=== PATIENT | female | born 1940 | race Caucasian/White ===

== ENCOUNTER 2016-10-25 17:56 | Emergency (ER) | payer MEDICARE, OTHER ==
[~2016-10-25] VITALS: Ht 167.6 cm; Wt 81.6 kg
[~2016-10-25 17:56] MED LIST: ADV1DS; CALC500T7 PO; CALC625T66 PO; CALCIUM; CARV3.122 PO; CARV6.252 PO; CLCX200C; DICL100G20 TOP; ENAL2.5T PO; ENAL5TAB PO; EZET1TAB43 PO; FLUC150T PO; GABA-486 PO; MULT1TAB63 PO; NF-ESOM40C PO; OMG1KC PO; ONDAN4ODT PO; TRAM50TA2 PO; TRM50T; VYTORIN
--- OUTSIDE RECORDS SUMMARY | 2016-10-25 18:03 | XMS REPORT | Continuity of Care Document ---
Author Author [facility] Organization [facility] Address Unknown Phone Unavailable Care Team Providers Care Agriculture Worker Name Role Phone FOREIGN MARS MD PCP Insurance Providers Payer Name Policy Number Subscriber Name Relationship [employer] [id number] Eva Boyd 18 Self / Same As Patient Physicians Sandy [id number] Eva Boyd 18 Self / Same As Patient Advance Directives Directive Response Recorded Date/Time Advance Directives Yes 09/25/14 5:05pm Health Care Power of Insurance Verification Clerk No 09/25/14 5:05pm Organ Donor Yes 09/25/14 5:05pm Resuscitation Status Full Code 09/25/14 5:05pm Chief Complaint and Reason for Visit Chief Complaint FEVER WITH GENAO, MALAISE Reason for Visit Nuchal rigidity Fever and chills Problems Medical Problems Problem Onset Date Status Nuchal rigidity Unknown Active Fever and chills Unknown Active Medications Medication Dose Route Sig Days/Qty Instructions Order Date Discontinued Date Status Multivitamins 2 Tab PO DAILY 08/17/07 Active [Calcium] 08/17/07 09/25/14 Discontinued Esomeprazole Magnesium 40 Mg PO DAILY PRN INDIGESTION 08/17/07 Active [Vytorin 10] DAILY 08/17/07 09/25/14 Discontinued Celecoxib 08/17/07 11/24/11 Discontinued Tramadol HCl 2 Tab EVERY 6 HOURS 08/17/07 09/25/14 Discontinued Salmeterol Xinafoate/Fluticasone 08/17/07 09/25/14 Discontinued Fish Oil 1,000 Mg PO DAILY 11/24/11 09/25/14 Discontinued Calcium Polycarbophil 625 Mg PO 11/24/11 09/25/14 Discontinued Carvedilol (Coreg) 1 Each PO TWICE A DAY 11/24/11 09/25/14 Discontinued Enalapril Maleate 2.5 Mg PO DAILY 11/24/11 09/25/14 Discontinued Diclofenac Sod 100 Gm TOP NEEDED 11/24/11 09/25/14 Discontinued Ondansetron HCl 4 Mg PO EVERY 4HRS 5 Qty FOR NAUSEA AND VOMITING 09/25/14 Discontinued Carvedilol (Coreg) 6.25 Mg PO TWICE A DAY 09/25/14 Active Enalapril Maleate 5 Mg PO TWICE A DAY 09/25/14 Active Ezetimibe/Simvastatin 1 Tab PO DAILY 09/25/14 Active Tramadol Hcl 50 Mg PO FOUR TIMES DAILY PRN PAIN 09/25/14 Active Gabapentin 100 Mg PO EVERY 8HRS PRN PAIN 09/25/14 Active Calcium Carbonate 400 Mg PO DAILY PRN INDIGESTION 09/25/14 Active Social History Social History Problem Response Recorded Date/Time Alcohol Use Denies Use 09/25/2014 5:21pm Recreational Drug Use No 09/25/2014 5:21pm Recent Foreign Travel No 09/25/2014 5:21pm Recent Infectious Disease Exposure No 09/25/2014 5:21pm Hospitalization with Isolation Denies 09/28/2014 2:20pm Smoking Status Never a Smoker 09/25/2014 5:00pm Query Response Start Date Stop Date Smoking Status Never a Smoker Hospital Discharge Instructions No hospital discharge instructions. Plan of Care Discharge Date 09/28/14 2:20pm Disposition 61 MEDICARE SWING BED Instructions/Education Provided Fungal Meningitis (DC) Prescriptions See Medications Section Functional Status Query Response Date Recorded Patient Orientation Person Place Time Situation September 28, 2014 2:20pm Comprehension Ability Understands Concepts September 26, 2014 8:00pm Allergies, Adverse Reactions, Alerts Allergen Type Severity Reaction Status Last Updated NSAIDS (Non-Steroidal Anti-Inflammatory Drug) ([id number]) Allergy Unknown Active 03/21/09 Immunizations Name Given Type Date of Pneumonia Vaccine 09/25/06 Historical Date of Influenza Vaccine 06/27/14 Historical Vital Signs Acute Vital Signs Vital Response Date/Time Temperature (Fahrenheit) 97.5 degrees F (97.6 - 99.5) Temperature (Calculated Celsius) 36.13463 degrees C (36.4 - 37.5) Temperature Source Tympanic Pulse Rate (adult) 70 bpm (60 - 90) Respiratory Rate 18 bpm (12 - 24) O2 Sat by Pulse Oximetry 97 % (88 - 100) Blood Pressure 167/91 mm Hg Pain Pain Intensity 0 Height (Feet) 5 feet Height (Inches) 6.00 inches Height (Calculated Centimeters) 167.464326 cm Weight (Pounds) 163 pounds Weight (Ounces) 6.0 oz Weight (Calculated Grams) 49492.654 gm Weight (Calculated Kilograms) 74.137071 kilograms Calculated BMI 26.31 Results Laboratory Results Test Name Result Units Flags Reference Collection Date/Time Result Date/ Time Comments White Blood Count 8.6 10^3/uL 4.3-11.0 09/27/2014 5:55am 09/27/2014 6: 23am Red Blood Count 3.20 10^6/uL L 4.35-5.85 09/27/2014 5:55am 09/27/2014 6: 23am Hemoglobin 9.6 G/DL L 11.5-16.0 09/27/2014 5:55am 09/27/2014 6:23am Hematocrit 29 % L 35-52 09/27/2014 5:55am 09/27/2014 6:23am Mean Corpuscular Volume 92 FL 80-99 09/27/2014 5:55am 09/27/2014 6: 23am Mean Corpuscular Hemoglobin 30 PG 25-34 09/27/2014 5:55am 09/27/2014 6: 23am Mean Corpuscular Hemoglobin Concent 33 G/DL 32-36 09/27/2014 5:55am 09/2014 6:23am Red Cell Distribution Width 14.7 % H 10.0-14.5 09/27/2014 5:55am 2014 6:23am Platelet Count 148 10^3/uL 130-400 09/27/2014 5:55am 09/27/2014 6:23am Mean Platelet Volume 9.8 FL 7.4-10.4 09/27/2014 5:55am 09/27/2014 6: 23am Neutrophils (%) (Auto) 76 % H 42-75 09/27/2014 5:55am 09/27/2014 6:23am Lymphocytes (%) (Auto) 10 % L 12-44 09/27/2014 5:55am 09/27/2014 6:23am Monocytes (%) (Auto) 5 % 0-12 09/27/2014 5:55am 09/27/2014 6:23am Eosinophils (%) (Auto) 9 % 0-10 09/27/2014 5:55am 09/27/2014 6:23am Basophils (%) (Auto) 0 % 0-10 09/27/2014 5:55am 09/27/2014 6:23am Neutrophils # (Auto) 6.5 X 10^3 1.8-7.8 09/27/2014 5:55am 09/27/2014 6: 23am Lymphocytes # (Auto) 0.9 X 10^3 L 1.0-4.0 09/27/2014 5:55am 09/27/2014 6: 23am Monocytes # (Auto) 0.4 X 10^3 0.0-1.0 09/27/2014 5:55am 09/27/2014 6: 23am Eosinophils # (Auto) 0.8 10^3/uL H 0.0-0.3 09/27/2014 5:55am 09/27/2014 6 :23am Basophils # (Auto) 0.0 10^3/uL 0.0-0.1 09/27/2014 5:55am 09/27/2014 6: 23am Neutrophils % (Manual) 81 % 09/25/2014 12:25pm 09/25/2014 12:55pm Band Neutrophils 7 % 09/25/2014 12:25pm 09/25/2014 12:55pm Lymphocytes % (Manual) 9 % 09/25/2014 12:25pm 09/25/2014 12:55pm Monocytes % (Manual) 0 % 09/25/2014 12:25pm 09/25/2014 12:55pm Eosinophils % (Manual) 3 % 09/25/2014 12:25pm 09/25/2014 12:55pm Basophils % (Manual) 0 % 09/25/2014 12:25pm 09/25/2014 12:55pm Blood Morphology Comment NORMAL 09/25/2014 12:25pm 09/25/2014 12: 55pm Urine Color YELLOW 09/25/2014 12:50pm 09/25/2014 1:12pm Urine Clarity CLEAR 09/25/2014 12:50pm 09/25/2014 1:12pm Urine pH 7 5-9 09/25/2014 12:50pm 09/25/2014 1:12pm Urine Specific Noble 1.010 * 1.016-1.022 09/25/2014 12:50pm 2013 1:12pm Urine Protein NEGATIVE NEGATIVE 09/25/2014 12:50pm 09/25/2014 1:12pm Urine Glucose (UA) NEGATIVE NEGATIVE 09/25/2014 12:50pm 09/25/2014 1: 12pm Urine RBC (Auto) 3+ * NEGATIVE 09/25/2014 12:50pm 09/25/2014 1:12pm Urine Ketones NEGATIVE NEGATIVE 09/25/2014 12:50pm 09/25/2014 1:12pm Urine Nitrite NEGATIVE NEGATIVE 09/25/2014 12:50pm 09/25/2014 1:12pm Urine Bilirubin NEGATIVE NEGATIVE 09/25/2014 12:50pm 09/25/2014 1: 12pm Urine Urobilinogen NORMAL MG/DL NORMAL 09/25/2014 12:50pm 09/25/2014 1: 12pm Urine Leukocyte Esterase 1+ * NEGATIVE 09/25/2014 12:50pm 09/25/2014 1: 12pm Urine RBC 0-2 /HPF 09/25/2014 12:50pm 09/25/2014 1:12pm Urine WBC RARE /HPF 09/25/2014 12:50pm 09/25/2014 1:12pm Urine Bacteria TRACE /HPF 09/25/2014 12:50pm 09/25/2014 1:12pm Urine Squamous Epithelial Cells RARE /HPF 09/25/2014 12:50pm 2013 1:12pm Urine Crystals NONE /LPF 09/25/2014 12:50pm 09/25/2014 1:12pm Urine Casts NONE /LPF 09/25/2014 12:50pm 09/25/2014 1:12pm Urine Mucus NEGATIVE /LPF 09/25/2014 12:50pm 09/25/2014 1:12pm Urine Culture Indicated NO 09/25/2014 12:50pm 09/25/2014 1:12pm Sodium Level 138 MMOL/L 135-145 09/27/2014 5:55am 09/27/2014 6:57am Potassium Level 3.5 MMOL/L L 3.6-5.0 09/27/2014 5:55am 09/27/2014 6:57am Chloride Level 108 MMOL/L H 98-107 09/27/2014 5:55am 09/27/2014 6:57am Carbon Dioxide Level 23 MMOL/L 21-32 09/27/2014 5:55am 09/27/2014 6: 57am Blood Urea Nitrogen 16 MG/DL 7-18 09/27/2014 5:55am 09/27/2014 6:57am Creatinine 0.80 MG/DL 0.60-1.30 09/27/2014 5:55am 09/27/2014 6:57am BUN/Creatinine Ratio 20 09/27/2014 5:55am 09/27/2014 6:57am Estimat Glomerular Filtration Rate > 60 09/27/2014 5:55am 2014 6:57am GFR INTERPRETIVE DATA UNITS FOR ESTIMATED GFR (eGFR): mL/min/1.73 M2 REFERENCE RANGE FOR ESTIMATED GFR (eGFR) eGFR NORMAL eGFR >60 MODERATELY DECREASED eGFR 30-59 SEVERLY DECREASED eGFR 15-29 KIDNEY FAILURE <15 (OR DIALYSIS) Glucose Level 100 MG/DL 70-105 09/27/2014 5:55am 09/27/2014 6:57am Calcium Level 7.5 MG/DL L 8.5-10.1 09/27/2014 5:55am 09/27/2014 6:57am Total Bilirubin 0.2 MG/DL 0.1-1.0 09/27/2014 5:55am 09/27/2014 6:57am Alkaline Phosphatase 64 U/L 40-136 09/27/2014 5:55am 09/27/2014 6:57am Aspartate Amino Transf (AST/SGOT) 20 U/L 5-34 09/27/2014 5:55am 2014 6:57am Alanine Aminotransferase (ALT/SGPT) 12 U/L 0-55 09/27/2014 5:55am 09/27 6:57am Total Protein 5.2 G/DL L 6.4-8.2 09/27/2014 5:55am 09/27/2014 6:57am Albumin 2.6 G/DL L 3.2-4.5 09/27/2014 5:55am 09/27/2014 6:57am CSF Appearance CLEAR 09/25/2014 2:47pm 09/25/2014 3:24pm CSF Color COLORLESS 09/25/2014 2:47pm 09/25/2014 3:24pm CSF WBC 1 CELLS 0-5 09/25/2014 2:47pm 09/25/2014 3:24pm CSF RBC 77 CELLS H 0-0 09/25/2014 2:47pm 09/25/2014 3:24pm CSF Tube Number 4 09/25/2014 2:47pm 09/25/2014 3:24pm CSF Glucose 57 MG/DL 50-80 09/25/2014 2:47pm 09/25/2014 3:34pm CSF Total Protein 30 MG/DL 15-40 09/25/2014 2:47pm 09/25/2014 3:34pm Microbiology Results Procedure Source Result Collection Date/Time Result Date/Time Blood Culture Peripheral, Rt Ac POSITIVE; SEE REPORT 09/25/2014 4:00pm 10/2014 7:20am BACILLUS SPECIES 09/25/2014 4:00pm 09/28/2014 7:20am Procedures No known history of procedures. Encounters Encounter Location Date/Time Discharged Inpatient Via [facility] 09/25/14 2:00pm Recent Diagnosis Nuchal rigidity Fever and chills
[2016-10-25] MEDS ORDERED: METO-270 (18:13)
--- NOTE | 2016-10-25 18:22 | ED Cough/URI ---
General Chief Complaint: Cough/Cold/Flu Symptoms Stated Complaint: COUGHING, SORE THROAT Source: patient, family Exam Limitations: no limitations History of Present Illness Time seen by provider: 18:21 Initial Comments Brought to ER by her granddaughter with reports of a productive cough for 5 days as well as chills, rhinorrhea and sore throat. She did not receive a flu vaccine this year. She does have a history of asthma and infrequently uses a inhaler. She wears oxygen at night while sleeping. Timing/Duration: constant, week Severity/Quality: moderate Associated Symptoms: cough Allergies and Home Medications Allergies Coded Allergies: NSAIDS (Non-Steroidal Anti-Inflamma (Verified Allergy, Unknown, 03/21/09) Home Medications Calcium Carbonate 200 Mg Tab.chew 400 MG PO DAILY PRN PRN INDIGESTION (Reported ) Cefuroxime Axetil 250 Mg Tablet #14 250 MG PO BID Prescribed by: JORGE BLOOM on 10/25/161906 Esomeprazole Mag Trihydrate 40 Mg Capsule.dr 40 MG PO DAILY PRN PRN INDIGESTION (Reported) Ezetimibe/Simvastatin 1 Each Tablet 1 TAB PO DAILY (Reported) Guaifenesin/Pseudoephedrne HCl 1 Each Tab.er.12h #20 1 EACH PO BID PRN PRN COUGH Prescribed by: JORGE BLOOM on 10/25/161906 Metoprolol Succinate 25 Mg Tab.er.24h #90 (Reported) Multivitamins 1 Ea Tablet 2 TAB PO DAILY (Reported) Tramadol Hcl 50 Mg Tab 50 MG PO QID PRN PRN PAIN (Reported) Constitutional: see HPI EENTM: see HPI Respiratory: see HPI cough phlegm Cardiovascular: no symptoms reported Genitourinary: no symptoms reported Musculoskeletal: no symptoms reported Skin: no symptoms reported Psychiatric/Neurological: No Symptoms Reported Hematologic/Lymphatic: No Symptoms Reported Past Psywmhk-Mjqtnr-Qspyal Hx Patient Social History Alcohol Use: Denies Use Recreational Drug Use: No Smoking Status: Never a Smoker Recent Foreign Travel: No Contact w/Someone Who Travel: No Recent Hopitalizations: Yes Physical Abuse Screen: No Sexual Abuse: No Immunizations Up To Date Tetanus Booster (TDap): Unknown PED Vaccines UTD: Yes Date of Pneumonia Vaccine: Sep 25, 2006 Date of Influenza Vaccine: Jun 27, 2014 Seasonal Allergies Seasonal Allergies: Yes Surgeries HX Surgeries: Yes (knees replaced bilateral) Surgeries: Hysterectomy, Orthopedic, Tonsillectomy Respiratory Hx Respiratory Disorders: Yes (hx. of asthma yrs ago.; wears 02@1-2 at nite) Respiratory Disorders: Asthma Cardiovascular Hx Cardiac Disorders: Yes (heart cath.; no problems; Dr. Huntley) Cardiac Disorders: Aneurysm, Hypertension Neurological Hx Neurological Disorders: No Reproductive System Hx Reproductive Disorders: No Genitourinary Hx Genitourinary Disorders: Yes (FREQUENCY) Gastrointestinal Hx Gastrointestinal Disorders: Yes (CHRONIC NAUSEA) Gastrointestinal Disorders: Diverticulosis Musculoskeletal Hx Musculoskeletal Disorders: Yes (LEFT SHOULDER PAIN, CHRONIC GENERALIZED PAIN /CHRONIC NECK PAIN) Musculoskeletal Disorders: Arthritis Endocrine Hx Endocrine Disorders: No HEENT HX ENT Disorders: No Loss of Vision: Denies Hearing Impairment: Denies Cancer Hx Cancer: No Psychosocial Hx Psychiatric Problems: No Integumentary HX Skin/Integumentary Disorder: No Blood Transfusions Hx Blood Disorders: No Adverse Reaction to a Blood Tr: No Family Medical History Family Medial History: Patient reports no known family medical history. Physical Exam Vital Signs Vital Sign - Last 12Hours 10/25/16 17:58 Temp 98.3 Pulse 80 Resp 18 B/P 121/62 Pulse Ox 94 O2 Delivery Room Air Capillary Refill : General Appearance: WD/WN no apparent distress Eyes: Bilateral Eye EOMI, Bilateral Eye Normal Inspection, Bilateral Eye PERRL HEENT: PERRL/EOMI normal ENT inspection Neck: non-tender full range of motion Respiratory: lungs clear normal breath sounds no respiratory distress no accessory muscle use Cardiovascular: regular rate, rhythm no murmur Gastrointestinal: normal bowel sounds non tender soft Extremities: normal range of motion non-tender Neurologic/Psychiatric: alert normal mood/affect oriented x 3 Skin: normal color warm/dry Progress/Results/Core Measures Results/Orders Micro Results Microbiology 10/25/16 Influenza Types A,B Antigen (ADALBERTO) - Final, Complete My Orders Orders-JORGE BLOOM APRN Chest Pa/Lat (2 View) (10/25/16 18:19) Influenza A And B Antigens (10/25/16 18:19) Vital Signs/I&O Vital Sign - Last 12Hours 10/25/16 17:58 Temp 98.3 Pulse 80 Resp 18 B/P 121/62 Pulse Ox 94 O2 Delivery Room Air Departure Impression Impression: Primary Impression: Bronchitis Disposition: 01 HOME, SELF-CARE Condition: Stable Departure-Patient Inst. Decision time for Depature: 19:05 Referrals: FOREIGN MARS MD (PCP/Family) Primary Care Physician Patient Instructions: Acute Bronchitis, Adult (DC) Add. Discharge Instructions: 1. Cough medication and antibiotics as directed 2. Follow-up with your doctor this week if no improvement 3. Return to ER for any worsening All discharge instructions reviewed with patient and/or family. Voiced understanding. Scripts Guaifenesin (Guaifenesin ER)600 Mg Tab.er.32u937 Mg PO BID #20 TAB Prov:JORGE BLOOM HOSPICE CARE CONSULTANT 10/25/16 Cefuroxime Axetil (Cefuroxime)250 Mg [id number] Mg PO BID #14 TAB Prov:JORGE BLOOM HOSPICE CARE CONSULTANT 10/25/16 JORGE BLOOM HOSPICE CARE CONSULTANT Oct 25, 2016 18:22
--- NOTE | 2016-10-25 18:54 | Diagnostic Imaging Report ---
INDICATION: Cough. COMPARISON: September 25, 2014. TECHNIQUE: Two radiographs of the chest dated October 25, 2016. FINDINGS: The cardiac silhouette is within normal limits. No significant pulmonary vascular congestion. Calcified granuloma overlying the right upper lung is stable. The lungs are clear. No pleural effusion. No pneumothorax. No acute osseous abnormality. IMPRESSION: Stable examination without acute cardiopulmonary abnormality. Dictated by: Dictated on workstation # [id number]
[2016-10-25] MEDS ORDERED: GUAI-148 PO (19:07)
[2016-10-25] MEDS ORDERED: CEFU250T80 PO (19:07)
[2016-10-25] MEDS ORDERED: GUAI600T59 PO (19:09)
[2016-10-25 19:11] VITALS: BP 114/76
== END 2016-10-25 19:14 | disposition home or self-care (01) ==
LOC: EDUNIT# 17:56 → ER 17:58
DX: J40 Bronchitis, not specified as acute or chronic (principal); J02.9 Acute pharyngitis, unspecified; I10 Essential (primary) hypertension; J45.909 Unspecified asthma, uncomplicated; Z79.899 Other long term (current) drug therapy
CPT/HCPCS: 71020; 87804

== ENCOUNTER → 2016-12-29 | Outpatient (CLI) | payer MEDICARE, OTHER ==
[~2016-12-29] MED LIST changes: +ASPI-983 PO; +CEFU250T80 PO; +ESOM20TA PO; +GUAI-148 PO; +GUAI600T59 PO; +LISI10TA2 PO; +METO-270; +METO-272 PO
--- NOTE | 2016-12-30 14:58 | ECHOCARDIOGRAPHY REPORT ---
PROCEDURE PHYSICIAN: KEATON SIDDIQUI DATE OF PROCEDURE: 12/29/2016 TWO DIMENSIONAL ECHOCARDIOGRAM REPORT PRIMARY PHYSICIAN: OTHER PHYSICIAN: REFERRING PHYSICIAN: Dr. Kera Jackson ORDERING PHYSICIAN: INDICATION FOR THE PROCEDURE: 1. Congestive heart failure. 2. Abdominal aortic aneurysm. 3. Chest pain. MEASUREMENTS DERIVED VALUES LV DIAMETER (LAX) NORMALS NORMALS Diastolic 4.3 (3.6-5.2) Eject. Fract. 60% (60%+/-6%) Systolic (2.3-3.9) Diastolic Vol. % Shortening (0.22-0.42) Systolic Vol. Aortic Root IVS THICKNESS Diastolic 1 (0.6-1.1) LVPW THICKNESS Diastolic 1 (0.6-1.1) LA DIAMETER Systolic 3.6 (2.1-3.7) FINDINGS: 1. Technical quality is good. 2. The left ventricle is normal in size with normal contractility. Systolic function appeared to be normal. Estimated ejection fraction 60%. 3. The left atrium is normal in size. No clot or thrombus were seen within the left atrium. 4. The right atrium and right ventricle are normal in size. No clot or thrombus were seen within the right side. 5. Mitral valve is normal in morphology with mild mitral regurgitation noted by color Doppler flow. No mitral valve prolapse. No mitral valve stenosis. 6. Aortic valve is trileaflet with normal opening and closing pattern. No significant aortic stenosis or regurgitation was seen. 7. Tricuspid valve is normal in morphology with mild tricuspid regurgitation noted by color Doppler flow. Doppler across tricuspid valve estimated pulmonary artery pressure of 29+ right atrial pressure. 8. Pulmonic valve is functioning normally. 9. No pericardial effusion. CONCLUSION: 1. Normal left ventricular size and systolic function. Estimated ejection fraction 60%. 2. Mild mitral and tricuspid regurgitation. 3. Estimated pulmonary artery pressure of 35 mmHg. Job ID: [id number] Dictated Date: 12/30/2016 14:31:21 Tool Maker Bench Date: 12/30/2016 14:54:37 / liv
== END ==
LOC: CARD 14:18
PROVIDERS: ATTEND Internal Medicine Cardiovascular Disease
DX: I50.22 Chronic systolic (congestive) heart failure (principal); R07.89 Other chest pain; E78.2 Mixed hyperlipidemia; I11.0 Hypertensive heart disease with heart failure; I71.4 Abdominal aortic aneurysm, without rupture
CPT/HCPCS: 93306

== ENCOUNTER → 2017-01-20 | Outpatient (CLI) | payer MEDICARE, OTHER ==
[~2017-01-20] MED LIST changes: +CATHETER FLUSH 10 ML SYR IV PRN
[2017-01-20 09:35] VITALS: BP 148/95
--- NOTE | 2017-01-21 13:25 | STRESS TEST ---
DATE OF SERVICE: 01/20/2017 REFERRING PHYSICIAN: Kera Jackson MD PROCEDURE: Lexiscan Myoview stress test. Baseline heart rate 61, baseline blood pressure 148/95, baseline EKG sinus rhythm with no ischemic changes. IN SUMMARY: The patient received 10.5 mCi of technetium-99 Myoview and the resting images were obtained. Then the patient received 0.4 mg of Lexiscan followed by 30.3 mCi of technetium-99 Myoview. Throughout the test, there were no EKG changes. The resting and stress images were reviewed and compared in the short axis, horizontal long axis and vertical long axis views. Review of the images showed breast attenuation affecting the equality of the images. There is questionable ischemia involving the mid to apical anterior wall, anterolateral wall. SSS is 8, SDS 60, TID value 0.96. On the gated images, the left ventricle appeared to be normal size with normal contractility. Calculated ejection fraction 65%. IN CONCLUSION: 1. The patient tolerated Lexiscan well. 2. Breast attenuation affecting the quality of the images with mild ischemia involving the mid to apical anterior wall and anterolateral wall. 3. Normal left ventricular size with normal contractility. 4. Calculated ejection fraction 65%. Job ID: [id number] DocumentID: [id number] Dictated Date: 01/20/2017 14:15:45 Information Technology Coordinator Date: 01/21/2017 07:38:33 Dictated By: KEATON SIDDIQUI MD
== END ==
LOC: CARD 07:36
PROVIDERS: ATTEND Internal Medicine Cardiovascular Disease
DX: R07.89 Other chest pain (principal); I11.0 Hypertensive heart disease with heart failure; I50.22 Chronic systolic (congestive) heart failure; E78.2 Mixed hyperlipidemia; I71.4 Abdominal aortic aneurysm, without rupture
CPT/HCPCS: 78452; 93017

== ENCOUNTER 2017-01-27 08:44 | Day surgery (SDC) | payer MEDICARE, OTHER ==
[2017-01-27] VITALS (11 sets, daily range): BP systolic 113–157; BP diastolic 52–102
[~2017-01-27] VITALS: Ht 167.6 cm; Wt 81.8 kg
[~2017-01-27 08:44] MED LIST changes: -ASPI-983 PO; -CATHETER FLUSH 10 ML SYR IV PRN; -ESOM20TA PO; -LISI10TA2 PO; -METO-272 PO
[2017-01-27] MEDS ORDERED: LIDOCAINE 1% INJ 20 ML (XYLOCAINE) VIAL ONE (08:59)
[2017-01-27] MEDS ORDERED: NS IV 1000 ML 1,000 ML ONE (08:59)
[2017-01-27] MEDS ORDERED: HEParin (CATH LAB) 2,000 ML IV ONE (08:59)
[2017-01-27] MEDS ORDERED: NS IV 1000 ML 1,000 ML IV SCH ×2 (09:30→12:23)
[2017-01-27 10:07] LABS: BILIRUBIN,URINE NEGATIVE (NEGATIVE); KETONES,URINE NEGATIVE (NEGATIVE); LEUKOCYTE ESTERASE ,URINE 3+ (NEGATIVE); NITRITE,URINE NEGATIVE (NEGATIVE); PH,URINE 6 (5-9); PROTEIN,URINE 1+ (NEGATIVE); UROBILINOGEN,URINE NORMAL (NORMAL)
[2017-01-27 10:20] LABS: MEAN PLATELET VOLUME 9.8 FL (7.4-10.4); RED BLOOD COUNT 4.34 10^6/uL (4.35-5.85); RED CELL DISTRIBUTION WIDTH 15.1 % (10.0-14.5); WHITE BLOOD COUNT 9.3 10^3/uL (4.3-11.0)
[2017-01-27 10:23] LABS: INR 1.2 (0.8-1.4); PROTHROMBIN TIME PATIENT 14.4 SEC (12.2-14.7)
[2017-01-27] MEDS ORDERED: METO-272 PO (10:26)
[2017-01-27] MEDS ORDERED: ESOM20TA PO (10:26)
[2017-01-27] MEDS ORDERED: ASPI-983 PO (10:26)
[2017-01-27] MEDS ORDERED: LISI10TA2 PO (10:26)
[2017-01-27 10:31] LABS: ALBUMIN 4.1 G/DL (3.2-4.5); BILIRUBIN,TOTAL 0.6 MG/DL (0.1-1.0); CALCIUM 9.2 MG/DL (8.5-10.1); CREATININE SERUM 1.02 MG/DL (0.60-1.30); POTASSIUM 3.8 MMOL/L (3.6-5.0); TOTAL PROTEIN 7.2 G/DL (6.4-8.2)
--- NOTE | 2017-01-27 11:16 | Diagnostic Imaging Report ---
INDICATION: Cardiac disease. COMPARISON: 10/25/2016. FINDINGS: The heart size and configuration are normal. There is no vascular congestion. No edema, pneumonia, effusion, pneumothorax, or failure pattern. A densely calcified subcentimeter benign granuloma in the right apex is stable. IMPRESSION: Stable unremarkable chest. Dictated by: Dictated on workstation # [id number]
[2017-01-27] MEDS ORDERED: fentaNYL INJECTION 100 MCG/2 ML AMP ONE (11:44)
[2017-01-27] MEDS ORDERED: MIDAZOLAM 5 MG/5 ML (VERSED) VIAL ONE (11:44)
--- NOTE | 2017-01-27 12:25 | Discharge Inst-Post CATH ---
Discharge Inst-CATH Post Cardiac Cath D/C Inst Follow Up/Plan Appointment with Dr Huntley's office in 2-4 weeks CARDIAC CATH DISCHARGE INSTRUCTIONS *Hold Metformin for 48 hours post heart cath. ACTIVITY * Go Home directly and rest. * Limit activity of the leg (or wrist if it was used) for 7 days including aerobics, swimming, jogging, bicycling, etc. * Restrict stair-climbing for 7 days if possible, if not, climb up with your non -cath leg, then bring together on the same step. * Avoid lifting, pushing, pulling or excessive movement of the affected extremity for 7 days. * Customary sexual activity may be resumed after 2 days-use caution not to use a position that strains or causes pain to the affected extremity. * No driving for 24 hours. * NO SMOKING. * Avoid straining for bowel movements for 7 days. * Gentle walking on level ground is allowed. * Returning to work will depend on the type of procedure and the results. Your doctor will discuss this with you. CALL YOUR DOCTOR FOR ANY OF THE FOLLOWING: *If bleeding from the puncture site occurs- Apply gentle pressure to site with clean cloth and call your doctor or EMS. * If a knot or lump forms under the skin, increases in size, or causes pain. * If bruising appears to be worsening or moving further down your leg instead of disappearing. * Temperature above 101 F. CARE OF YOUR GROIN INCISION; * Bruising or purple discoloration of the skin near the puncture site is common. * You may shower only, no bathtub bathing for 5 days. Be careful to avoid slipping as your leg may feel stiff. * If a closure device was used on your femoral artery, please see the attached guide regarding care of the device and your leg. * REMOVE the dressing from your groin the next day after your procedure in the shower. CARE OF YOUR WRIST INCISION; * Bruising or purple discoloration of the skin near the puncture site is common. * You may shower. * DO NOT submerge wrist. * Remove dressing in 24 hours. KEATON HUNTLEY MD January 27, 2017 12:25
--- NOTE | 2017-01-27 12:25 | Cardiac Procedure Note-CS/ASA ---
Pre-Procedure Note Pre-Op Procedure Note H&P Reviewed The H&P was reviewed, patient examined and no changes noted. Date H&P Reviewed: January 27, 2017 Time H&P Reviewed: 11:00 Conscious Sedation Pre-Proced Time Reviewed: 11:00 ASA Class: 3 Airway Mallampati Classification: (menominee appropriate class) I. II. III, IV Lungs Heart ASA score ASA 1: a normal healthy patient ASA 2: a patient with a mild systemic disease (mid diabetes, controlled hypertension, obesity x ASA 3: a patient with a severe systemic disease that limits activity (angina , COPD, prior Myocardial infarction) ASA 4: a patient with an incapacitating disease that is a constant threat to life (CHF, renal failure) ASA 5: a moribund patient not expected to survive 24 hrs. (ruptured aneurysm) ASA 6: a declared brain patient whose organs are being harvested. For emergent operations, add the letter E after the classification Grade 3 Sedation Plan: Analgesia, Amnesia, Plan communicated to team members, Discussed options with patient/fam, Discussed risks with patient/fam Note The patient is an appropriate candidate to undergo the planned procedure, sedation, and anesthesia. The patient immediately re-assessed prior to indication. KEATON SIDDIQUI MD January 27, 2017 12:25
[2017-01-27] MEDS ORDERED: PATIENT MAY USE OWN MEDS, ALL PO SCH (12:30)
--- NOTE | 2017-01-27 13:10 | DISCHARGE SUMMARY ---
DATE OF SERVICE: 01/27/2017 REFERRING PHYSICIAN: Dr. Jackson BRIEF HISTORY: The patient is a 76-year-old lady with a history of recurrent chest pain. Had history of mild coronary artery disease per cardiac catheterization in 2006. Patient had a stress test which was abnormal, suggestive of ischemia. She was scheduled for cardiac catheterization and possible PTCA. PROCEDURE NOTE: After explaining the procedure to the patient, all pros and cons were explained. All questions were answered. Patient signed a consent and she was placed on the cardiac catheterization laboratory. Right groin was prepped in a sterile fashion, local anesthesia applied to the right groin. A 6-Somali sheath was placed in the right femoral artery. Combination of right and left Doreen catheters were used to access the right and left coronary system. Multiple views were obtained. Doreen right was prolapsed into the left ventricular cavity. Left ventricular pressure was measured. No left ventriculogram was done. Pullback LV to aorta was done. At the end of the procedure, sheath was removed, Mynx device deployed, hemostasis achieved. TOTAL CONTRAST USED: 31 mL TOTAL RADIATION DOSE: 10 mGy FINDINGS: Hemodynamics: LV pressure 118/14, end-diastolic pressure of 14, aortic pressure 117/59, mean of 83. No significant gradient across the aortic valve. ANATOMY: 1. Left main coronary artery is bifurcating to left anterior descending and left circumflex artery with no obstructive disease. 2. Left anterior descending artery is moderate in size with mild disease. No obstructive disease. 3. Left circumflex artery is moderate in size with mild disease. No significant obstructive disease. 4. Right coronary artery is a dominant artery with mild disease. No significant obstructive disease was noted. 5. No left ventriculogram was done. CONCLUSION: 1. Mild coronary artery disease, nonobstructive disease. 2. Normal left ventricular end-diastolic pressure. FINAL DIAGNOSES: 1. Chest pain, no specific etiology. 2. Coronary artery disease. 3. Abdominal aortic aneurysm. 4. Hypertension. 5. Hyperlipidemia. Job ID: [id number] DocumentID: [id number] Dictated Date: 01/27/2017 12:28:41 Lay Out And Detail Drafter Date: 01/27/2017 13:09:41 Dictated By: KEATON SIDDIQUI MD
[2017-01-27] MEDS ORDERED: CATHETER FLUSH 10 ML SYR IV PRN (15:00)
== END 2017-01-27 17:30 ==
LOC: CATH 08:44 → ICU 12:50 → CATH 17:30
PROVIDERS: ATTEND Internal Medicine Cardiovascular Disease
DX: R07.89 Other chest pain (principal); I25.10 Atherosclerotic heart disease of native coronary artery without angina pectoris; I71.4 Abdominal aortic aneurysm, without rupture; I50.32 Chronic diastolic (congestive) heart failure; I10 Essential (primary) hypertension; E78.5 Hyperlipidemia, unspecified; Z79.899 Other long term (current) drug therapy
CPT/HCPCS: 36415; 71010; 80053; 80061; 81000; 85027; 85610; 85730; 87081; 87088; 93005; 93458

== ENCOUNTER → 2017-04-13 | Outpatient (CLI) | payer MEDICARE, OTHER ==
[~2017-04-13] MED LIST changes: +ASPI-983 PO; +ESOM20TA PO; -GUAI600T59 PO; +GUAI600T86 PO; +LISI10TA2 PO; -METO-270; +METO-370 PO; +METO-387
--- NOTE | 2017-04-13 13:45 | Diagnostic Imaging Report ---
PA and lateral views of the chest. INDICATION: Cough. COMPARISON: 01/27/2017. FINDINGS: The lungs are clear. The heart size is normal. No effusion or pneumothorax. The mediastinum and lupe appear unremarkable. IMPRESSION: Unremarkable exam. Dictated by: Dictated on workstation # [id number]
== END ==
LOC: RAD 10:16
PROVIDERS: ATTEND Family Medicine
DX: R05 Cough (principal)
CPT/HCPCS: 71020

== ENCOUNTER → 2018-04-29 | Outpatient (CLI) | payer MEDICARE ==
--- NOTE | 2018-04-29 10:06 | Diagnostic Imaging Report ---
INDICATION: Abdominal aortic aneurysm screening. Abdominal aortic sonography is performed in the routine fashion and compared with 11/26/2015. FINDINGS: Proximal and midportion of the aorta were normal in caliber. There is an early aneurysm in the infrarenal segment of aorta measuring approximately 3.2 x 3.0 cm. This previously measured 3.0 x 2.9 cm. Iliac origins could not be visualized. IMPRESSION: There is an apparent slight increase in size of the patient's abdominal aortic aneurysm compared with 11/26/2015. It now measures 3.2 x 3.0 cm. Continued followup is recommended. Dictated by: Dictated on workstation # [id number]
== END ==
LOC: RAD 09:08
PROVIDERS: ATTEND Physician Assistant
DX: I71.4 Abdominal aortic aneurysm, without rupture (principal); E78.2 Mixed hyperlipidemia; I10 Essential (primary) hypertension; R07.89 Other chest pain
CPT/HCPCS: 76775

== ENCOUNTER 2018-06-12 13:24 | Emergency (ER) | payer MEDICARE | END 2018-06-12 13:44 | disposition left against medical advice (07) | LOC: EDUNIT# 13:24 → ER 13:25 | DX: M25.511 Pain in right shoulder (principal); M25.512 Pain in left shoulder ==

== ENCOUNTER → 2018-08-26 | Outpatient (CLI) | payer MEDICARE ==
--- NOTE | 2018-08-26 12:29 | Diagnostic Imaging Report ---
INDICATION: Routine screening. COMPARISON: 04/27/2012. TECHNIQUE: 2D and 3D bilateral screening mammography was performed with CAD. FINDINGS: Scattered fibroglandular densities are identified bilaterally. Vascular calcifications are seen bilaterally. The benign circumscribed nodular density in the upper-outer right breast appears stable and most consistent with an intraparenchymal lymph node. No new mass or malignant appearing microcalcifications are seen. The axillae are unremarkable. IMPRESSION: No mammographic features suspicious for malignancy are identified. ACR BI-RADS Category 2: Benign findings. Result letter will be mailed to the patient. Note: At least 10% of breast cancer is not imaged by mammography. Dictated by: Dictated on workstation # [id number]
== END ==
LOC: RAD 11:01
PROVIDERS: ATTEND Nurse Practitioner Family
DX: Z12.31 Encounter for screening mammogram for malignant neoplasm of breast (principal)
CPT/HCPCS: 77067

== ENCOUNTER → 2018-10-31 | Outpatient (CLI) | payer MEDICARE ==
--- NOTE | 2018-10-31 10:50 | Diagnostic Imaging Report ---
Indication: Aneurysm. Exam compared to 05/30/2018. Distal infrarenal abdominal aortic aneurysm reveals mild aneurysmal dilatation at 3.2 x 3.1 cm transverse stable. The iliacs are obscured by shadowing gas. Proximal and mid segments of the aorta nonaneurysmal. Impression: Mild fusiform aneurysmal dilatation of the infrarenal distal third aorta unchanged. Dictated by: Dictated on workstation # [id number]
== END ==
LOC: RAD 08:30
PROVIDERS: ATTEND Internal Medicine Cardiovascular Disease
DX: I71.4 Abdominal aortic aneurysm, without rupture (principal); R07.89 Other chest pain; I10 Essential (primary) hypertension
CPT/HCPCS: 76775

== ENCOUNTER 2018-11-28 15:15 | Outpatient (CLI) | payer MEDICARE ==
[~2018-11-28] VITALS: Ht 167.6 cm; Wt 75.9 kg
[2018-11-28] MEDS ORDERED: LOSA25TA41 PO (16:07)
[2018-11-28] MEDS ORDERED: EZET1TAB65 PO (16:07)
[2018-11-28] MEDS ORDERED: TRAM50TA2 PO (16:07)
[2018-11-28] MEDS ORDERED: FESO4TAB PO (16:07)
[2018-11-28] MEDS ORDERED: LOSA50TA63 PO (16:07)
[2018-11-28] MEDS ORDERED: RANI150T46 PO (16:07)
[2018-11-28] MEDS ORDERED: MULT1CAP27 PO (16:07)
[2018-11-29] MEDS ORDERED: PANT40TA2 PO (11:05)
== END 2018-11-28 16:12 | disposition home or self-care (01) ==
LOC: PREOP 15:15
PROVIDERS: ATTEND Surgery
DX: Z01.818 Encounter for other preprocedural examination (principal)

== ENCOUNTER 2018-11-29 09:26 | Day surgery (SDC) | payer MEDICARE ==
[~2018-11-29] VITALS: Ht 167.6 cm; Wt 75.9 kg
[~2018-11-29 09:26] MED LIST changes: +EZET1TAB65 PO; +FESO4TAB PO; +LOSA25TA41 PO; +LOSA50TA63 PO; +MULT1CAP27 PO; +RANI150T46 PO
[2018-11-29] MEDS ORDERED: LACTATED RINGERS 1,000 ML IV STA (09:48)
[2018-11-29] MEDS ORDERED: MIDAZOLAM 2 MG/2 ML (VERSED) VIAL ONE (09:50)
[2018-11-29] MEDS ORDERED: PROPOFOL INJECTION 50 ML IV ONE (09:50)
--- NOTE | 2018-11-29 09:55 | Progress Note-Pre Operative ---
Pre-Operative Progress Note H&P Reviewed The H&P was reviewed, patient examined and no changes noted. Date Seen by Provider: Nov 29, 2018 Time Seen by Provider: 09:54 Date H&P Reviewed: Nov 29, 2018 Time H&P Reviewed: 09:54 Pre-Operative Diagnosis: GERD, Dysphagia NANCY RODRIGUEZ DO Nov 29, 2018 09:55
[2018-11-29] MEDS ORDERED: HURRICAINE EXT TUBE (BENZOCAINE) XX PRN (10:00)
[2018-11-29] MEDS ORDERED: LACTATED RINGERS 1,000 ML IV ONE (10:01)
[2018-11-29 10:12] VITALS: BP 172/94
[2018-11-29] MEDS ORDERED: HURRICAINE EXT TUBE (BENZOCAINE) ONE (10:52)
[2018-11-29] MEDS ORDERED: PANT40TA2 PO (11:05)
--- NOTE | 2018-11-29 11:05 | Progress Note-Post Operative ---
Post-Operative Progess Note Surgeon (s)/Community Living Instructor (s) Surgeon NANCY RODRIGUEZ DO Community Living Instructor: na Pre-Operative Diagnosis GERD, Dysphagia Post-Operative Diagnosis Gastritis and hiatal hernia Procedure & Operative Findings Date of Procedure 11/29/18 Procedure Performed/Findings EGD with biopsy Anesthesia Type per FURNITURE SERVICER Estimated Blood Loss Estimated blood loss (mL): scant Specimens/Packing Specimens Removed Antrum and GE junction. NANCY RODRIGUEZ DO Nov 29, 2018 11:05
--- NOTE | 2018-11-29 11:06 | Discharge Inst-Simple/Standard ---
Discharge Inst-Standard Discharge Medications New, Converted or Re-Newed RX: Transmitted to Pharmacy Patient Instructions/Follow Up Plan of Care/Instructions/FU: [address] Activity as Tolerated: Yes Discharge Diet: Regular Diet NANCY RODRIGUEZ DO Nov 29, 2018 11:06
[2018-11-29 11:20] VITALS: BP 115/54
[2018-11-29 11:45] VITALS: BP 151/81
[2018-11-29 12:05] VITALS: BP 151/81
--- NOTE | 2018-11-29 13:23 | OPERATIVE REPORT ---
DATE OF SERVICE: 11/29/2018 PREOPERATIVE DIAGNOSES: Gastroesophageal reflux disease and dysphagia. POSTOPERATIVE DIAGNOSES: Gastritis and hiatal hernia. PROCEDURE: EGD with biopsies. SURGEON: Nancy Sherman DO ANESTHESIA: Per PARTS ROOM ASSOCIATE. ESTIMATED BLOOD LOSS: Scant. COMPLICATIONS: None. INDICATIONS: The patient is an 78-year-old female, who has been having reflux and dysphagia symptoms. She understands risks and benefits of procedure and wished to proceed with procedure. Consent was signed in the chart. DESCRIPTION OF PROCEDURE: The patient was taken to the endoscopy suite, placed in left lateral recumbent position. Timeout was performed. Scope was inserted into the mouth, down the esophagus, stomach and into the duodenum without difficulty. There are no polyps, masses or ulcerations within the duodenum. The scope was then slowly retracted back into the stomach where it was further insufflated. Some slight erythematous changes consistent with some slight gastritis was present and biopsy of the antrum was obtained. Scope was retroflexed noting a hiatal hernia. No other pathology. Scope was returned to its normal position, slowly withdrawn to the distal esophagus with some slight erythematous changes. Biopsy of the GE junction was obtained. Scope was then slowly retracted back until completely removed, noting no other pathology. The patient tolerated the procedure well without any complications. She was taken to recovery room in stable condition. RECOMMENDATIONS: The patient recommended to stop Zantac and start Protonix 40 mg daily. We will see how her symptoms do. We will have her follow up in the office in 2 weeks to discuss her symptoms and her pathology results. If any problems before to that to be seen at that time. Job ID: [id number] DocumentID: [id number] Dictated Date: 11/29/2018 11:09:12 Implant Polisher Date: 11/29/2018 13:22:00 Dictated By: NANCY SHERMAN DO
== END 2018-11-29 12:05 | disposition home or self-care (01) ==
LOC: ENDO 09:26
PROVIDERS: ATTEND Surgery
DX: K21.9 Gastro-esophageal reflux disease without esophagitis (principal); K44.9 Diaphragmatic hernia without obstruction or gangrene; K29.70 Gastritis, unspecified, without bleeding; I10 Essential (primary) hypertension; Z79.899 Other long term (current) drug therapy

== ENCOUNTER → 2019-07-25 | Outpatient (CLI) | payer MEDICARE ==
[~2019-07-25] MED LIST changes: +PANT40TA2 PO; +RANI-613 PO; -RANI150T46 PO
--- NOTE | 2019-07-25 14:22 | Diagnostic Imaging Report ---
INDICATION: 79-year-old female, postmenopausal. Screening for osteoporosis. COMPARISON: September 09, 2007 FINDINGS: AP Spine L1-L4: [BMD (g/cm2): 1.194] [T-Score: 0.0] [Z-Score: 1.5] [BMD Previous: 1.055] [BMD % Change: 13.2] LT Hip Neck: [BMD (g/cm2): 0.874] [T-Score: -1.2] [Z-Score: 0.8] LT Hip Total: [BMD (g/cm2):0.868] [T-Score:-1.1] [Z-Score: 0.7] [BMD Previous: 0.908] [BMD % Change: -4.4] RT Hip Neck: [BMD (g/cm2):0.836] [T-Score:-1.5] [Z-Score:0.5] RT Hip Total: [BMD (g/cm2):0.862] [T-score:-1.2] [Z-Score:0.7] [BMD Previous:0.911] [BMD % Change:-5.4] *Indicates significant change from prior examination based on 95% confidence level. World Health Organization criteria for BMD interpretation classify patients as Normal (T-score at or above -1.0), Osteopenic (T-score between -1.0 and -2.5) or Osteoporotic (T-score at or below -2.5). LIMITATIONS AND MODIFICATION: None. FRACTURE RISK (FRAX SCORE): The ten year probability of (%): Major Osteoporotic Fracture: [13.3] Hip Fracture: [3.3] IMPRESSION: 1. Osteopenia (Low bone mass). 2. No significant change in bone mineral density since prior examination. 3. See below National Osteoporosis Foundation guidelines on when to potentially initiate pharmacologic therapy. Based on the National Osteoporosis Foundation Guidelines, pharmacologic treatment should be initiated in any of the following, unless clinical conditions suggest otherwise: * Any patient with prior fragility fracture of the hip or vertebrae. A spine fracture indicates 5X risk for subsequent spine fracture and 2X risk for subsequent hip fracture. * Osteoporosis (T-score <-2.5). * Postmenopausal women and men age 50 and older with low bone mass/osteopenia (T-score between -1.0 and -2.5) by DXA and 10-year major osteoporotic fracture greater than 20% or a 10-year probability of hip fracture greater than 3%. These fracture risks are supplied above in the FRAX score, if applicable. * Clinician judgement and/or patient preferences may indicate treatment for people with 10-year fracture probabilities above or below these levels. Dictated by: Dictated on workstation # [id number]
== END ==
LOC: RAD 12:12
PROVIDERS: ATTEND Family Medicine
DX: Z13.820 Encounter for screening for osteoporosis (principal); M48.00 Spinal stenosis, site unspecified; M40.209 Unspecified kyphosis, site unspecified; M85.89 Other specified disorders of bone density and structure, multiple sites; Z78.0 Asymptomatic menopausal state
CPT/HCPCS: 77080

== ENCOUNTER → 2019-09-04 | Outpatient (CLI) | payer MEDICARE ==
[~2019-09-04] MED LIST changes: -METO-370 PO; -METO-387; +METO50TA7 PO; +MTP25TSR; +TRM50T PO
--- NOTE | 2019-09-04 10:39 | Diagnostic Imaging Report ---
INDICATION: Screening The current study was also evaluated with a Computer Aided Detection (CAD) system. 3-D Tomographic imaging was also performed. Comparison made with prior examination of 08/26/2018. FINDINGS: There are scattered fibroglandular densities bilaterally. There are vascular calcifications and benign type calcifications. There is no dominant mass, spiculated lesion or suspicious calcification identified. Skin and nipples and axilla are unremarkable. IMPRESSION: Category 2 benign. ACR BI-RADS Category 2: Benign findings. Result letter will be mailed to the patient. Note: At least 10% of breast cancer is not imaged by mammography. Dictated by: Dictated on workstation # [id number]
== END ==
LOC: RAD 09:11
PROVIDERS: ATTEND Nurse Practitioner Family
DX: Z12.31 Encounter for screening mammogram for malignant neoplasm of breast (principal)
CPT/HCPCS: 77067

== ENCOUNTER 2019-11-12 12:22 | Emergency (ER) | payer MEDICARE ==
[~2019-11-12] VITALS: Ht 167 cm; Wt 73.4 kg
[2019-11-12 13:31] LABS: BASOPHILS % (AUTO) 1 % (0-10); EOSINOPHILS # (AUTO) 0.2 10^3/uL (0.0-0.3); EOSINOPHILS % (AUTO) 3 % (0-10); HEMATOCRIT 38 % (35-52); HEMOGLOBIN 12.4 G/DL (11.5-16.0); LYMPHOCYTES # (AUTO) 1.3 X 10^3 (1.0-4.0); LYMPHOCYTES % (AUTO) 20 % (12-44); MEAN CORPUSCULAR HEMOGLOBIN 32 PG (25-34); MEAN CORPUSCULAR HGB CONC 33 G/DL (32-36); MEAN CORPUSCULAR VOLUME 98 FL (80-99); MEAN PLATELET VOLUME 9.4 FL (7.4-10.4); MONOCYTES # (AUTO) 0.9 X 10^3 (0.0-1.0); MONOCYTES % (AUTO) 14 % (0-12); NEUTROPHILS % (AUTO) 62 % (42-75); PLATELET COUNT 209 10^3/uL (130-400); RED CELL DISTRIBUTION WIDTH 14.1 % (10.0-14.5); WHITE BLOOD COUNT 6.4 10^3/uL (4.3-11.0)
[2019-11-12 13:49] LABS: BILIRUBIN,TOTAL 0.4 MG/DL (0.1-1.0); CALCIUM 9.1 MG/DL (8.5-10.1); CREATININE SERUM 1.05 MG/DL (0.60-1.30); POTASSIUM 4.4 MMOL/L (3.6-5.0); TOTAL PROTEIN 7.4 GM/DL (6.4-8.2)
--- NOTE | 2019-11-12 14:11 | Diagnostic Imaging Report ---
INDICATION: Cough and fever. COMPARISON: 04/13/2017 FINDINGS: No focal pulmonary infiltrate or consolidation is evident. There are no findings of an effusion. The lungs appear mildly hyperinflated. Heart size and mediastinal contour are stable from previous exam. There are no findings of abnormal pulmonary vascularity. There is no acute or suspicious osseous abnormality. IMPRESSION: Stable radiographic appearance of the chest. No acute cardiopulmonary process demonstrated. Dictated by: Dictated on workstation # [id number]
[2019-11-12] MEDS ORDERED: RT-ALBUTEROL SULF 2.5 MG/3 ML PRE-MIX VIAL INH STA (14:19)
[2019-11-12] MEDS ORDERED: NS IV 500 ML 500 ML IV ONE (14:19)
--- NOTE | 2019-11-12 14:20 | NUR ---
RT notified of Neb treatment for patient.
--- NOTE | 2019-11-12 15:04 | ED General ---
General Chief Complaint: Cough/Cold/Flu Symptoms Stated Complaint: COUGH/CONGESTION/DIZZY Nursing Triage Note: Patient ambulatory to ER room 6 with daughter. Patient complains of cough x 1 week with dizziness, fever, and intermittent shortness of breath. Nursing Sepsis Screen: No Definite Risk Source of Information: Patient Exam Limitations: No Limitations History of Present Illness Date Seen by Provider: Nov 12, 2019 Time Seen by Provider: 12:51 Initial Comments This 79-year-old woman presents to the emergency room with complaints of produ ctive cough, fatigue, and congestion for about one week. She reports subjective fever but is afebrile at present. She has had some significant nausea without vomiting. She denies chest pain. Her primary care provider is Dr. Jackson. Allergies and Home Medications Allergies Coded Allergies: NSAIDS (Non-Steroidal Anti-Inflamma (Verified Allergy, Unknown, 03/21/09) Home Medications Albuterol Sulfate 1 Puff Puff, 2 PUFF IH Q4H 1 PUFF = 90 MCG Prescribed by: SHIELA ISAACS on 11/12/19 1507 Ezetimibe/Simvastatin 1 Each Tablet, 1 EACH PO DAILY, (Reported) Fesoterodine Fumarate 4 Mg Tab.sr.24h, 4 MG PO DAILY, (Reported) Losartan Potassium 25 Mg Tablet, 25 MG PO HS, (Reported) Losartan Potassium 50 Mg Tablet, 50 MG PO DAILY, (Reported) Metoprolol Succinate 50 Mg Tab.er.24h, 50 MG PO DAILY, (Reported) Multivitamin 1 Each Capsule, 1 EACH PO DAILY, (Reported) Ondansetron 4 Mg Tab.rapdis, 4 MG SL Q4H PRN for NAUSEA/VOMITING Prescribed by: SHIELA ISAACS on 11/12/19 1507 Pantoprazole Sodium 40 Mg Tablet.dr, 40 MG PO DAILY Prescribed by: NANCY RODRIGUEZ on 11/29/18 1105 Tramadol HCl 50 Mg Tablet, 50 MG PO BID, (Reported) Patient Home Medication List Home Medication List Reviewed: Yes Review of Systems Review of Systems Constitutional: see HPI EENTM: see HPI Respiratory: see HPI Cardiovascular: no symptoms reported Gastrointestinal: no symptoms reported Genitourinary: no symptoms reported : No Musculoskeletal: no symptoms reported Skin: no symptoms reported Psychiatric/Neurological: No Symptoms Reported Hematologic/Lymphatic: No Symptoms Reported Past Hlhkhny-Vcxjmv-Xlrezf Hx Past Med/Social Hx: Reviewed and Corrections made Patient Social History Alcohol Use: Denies Use Recreational Drug Use: No Smoking Status: Never a Smoker 2nd Hand Smoke Exposure: No Recent Foreign Travel: No Contact w/Someone Who Travel: No Recent Infectious Disease Expo: No Recent Hopitalizations: No Immunizations Up To Date Tetanus Booster (TDap): Unknown PED Vaccines UTD: Yes Date of Pneumonia Vaccine: Jul 08, 2019 Date of Influenza Vaccine: Jul 03, 2019 Seasonal Allergies Seasonal Allergies: No Past Medical History Surgeries: Yes (knees replaced bilateral) Hysterectomy, Joint Replacement (Bilateral knees), Orthopedic, Tonsillectomy, Tubal Ligation Respiratory: Yes (hx. 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 Physical Exam Vital Signs Vital Signs - First Documented 11/12/19 12:57 Temp 36.9 Pulse 78 Resp 18 B/P (MAP) 131/80 (97) Pulse Ox 98 O2 Delivery Room Air Capillary Refill : Less Than 3 Seconds Height, Weight, BMI Height: 5'6.00" Weight: 167lbs. 6.0oz. 75.237135vb; 26.00 BMI Method:Stated General Appearance: No Apparent Distress, WD/WN HEENT: PERRL/EOMI, TMs Normal, Normal ENT Inspection, Pharynx Normal Neck: Normal Inspection; No JVD Respiratory: Lungs Clear, Normal Breath Sounds, No Accessory Muscle Use, No Respiratory Distress, Other (Auscultation with forced expiration reveals some w heezing and cough induction) Cardiovascular: Regular Rate, Rhythm, No Edema, No Murmur, Normal Peripheral Pulses Gastrointestinal: Normal Bowel Sounds, Non Tender, Soft Extremity: Normal Inspection Neurologic/Psychiatric: Alert, Oriented x3, No Motor/Sensory Deficits, Normal Mood/Affect, maitre d' II-XII Norm as Tested Skin: Normal Color, Warm/Dry Progress/Results/Core Measures Suspected Sepsis Recent Fever Within 48 Hours: Yes Infection Criteria Present: Suspected New Infection New/Unexplained Altered Menta: No Sepsis Screen: No Definite Risk SIRS Temperature: Pulse: 78 Respiratory Rate: 18 Laboratory Tests 11/12/19 13:18: White Blood Count 6.4 Blood Pressure 131 /80 Mean: 97 Laboratory Tests 11/12/19 13:18: Creatinine 1.05, Platelet Count 209, Total Bilirubin 0.4 Results/Orders Lab Results Laboratory Tests Test 11/12/19 13:18 11/12/19 15:08 Range/Units White Blood Count 6.4 4.3-11.0 10^3/uL Red Blood Count 3.86 L 4.35-5.85 10^6/uL Hemoglobin 12.4 11.5-16.0 G/DL Hematocrit 38 35-52 % Mean Corpuscular Volume 98 80-99 FL Mean Corpuscular Hemoglobin 32 25-34 PG Mean Corpuscular Hemoglobin Concent 33 32-36 G/DL Red Cell Distribution Width 14.1 10.0-14.5 % Platelet Count 209 130-400 10^3/uL Mean Platelet Volume 9.4 7.4-10.4 FL Neutrophils (%) (Auto) 62 42-75 % Lymphocytes (%) (Auto) 20 12-44 % Monocytes (%) (Auto) 14 H 0-12 % Eosinophils (%) (Auto) 3 0-10 % Basophils (%) (Auto) 1 0-10 % Neutrophils # (Auto) 4.0 1.8-7.8 X 10^3 Lymphocytes # (Auto) 1.3 1.0-4.0 X 10^3 Monocytes # (Auto) 0.9 0.0-1.0 X 10^3 Eosinophils # (Auto) 0.2 0.0-0.3 10^3/uL Basophils # (Auto) 0.0 0.0-0.1 10^3/uL Sodium Level 136 135-145 MMOL/L Potassium Level 4.4 3.6-5.0 MMOL/L Chloride Level 101 98-107 MMOL/L Carbon Dioxide Level 24 21-32 MMOL/L Anion Gap 11 5-14 MMOL/L Blood Urea Nitrogen 15 7-18 MG/DL Creatinine 1.05 0.60-1.30 MG/DL Estimat Glomerular Filtration Rate 50 BUN/Creatinine Ratio 14 Glucose Level 108 H 70-105 MG/DL Calcium Level 9.1 8.5-10.1 MG/DL Corrected Calcium 9.1 8.5-10.1 MG/DL Total Bilirubin 0.4 0.1-1.0 MG/DL Aspartate Amino Transf (AST/SGOT) 23 5-34 U/L Alanine Aminotransferase (ALT/SGPT) 14 0-55 U/L Alkaline Phosphatase 70 40-136 U/L Total Protein 7.4 6.4-8.2 GM/DL Albumin 4.0 3.2-4.5 GM/DL Urine Color YELLOW Urine Clarity CLEAR Urine pH 5.5 5-9 Urine Specific [place] <=1.005 1.016-1.022 Urine Protein NEGATIVE NEGATIVE Urine Glucose (UA) NEGATIVE NEGATIVE Urine Ketones TRACE H NEGATIVE Urine Nitrite POSITIVE H NEGATIVE Urine Bilirubin NEGATIVE NEGATIVE Urine Urobilinogen 0.2 < = 1.0 MG/DL Urine Leukocyte Esterase 2+ H NEGATIVE Urine RBC (Auto) 1+ H NEGATIVE Urine RBC RARE /HPF Urine WBC 5-10 H /HPF Urine Squamous Epithelial Cells 2-5 /HPF Urine Crystals NONE /LPF Urine Bacteria LARGE H /HPF Urine Casts NONE /LPF Urine Mucus NEGATIVE /LPF Urine Culture Indicated YES Micro Results Microbiology 11/12/19 Influenza Types A,B Antigen (ADALBERTO) - Final, Complete My Orders Orders - SHIELA KAHN MD Cbc With Automated Diff (11/12/19 12:51) Comprehensive Metabolic Panel (11/12/19 12:51) Ua Culture If Indicated (11/12/19 12:51) Influenza A And B Antigens (11/12/19 12:51) Ed Iv/Invasive Line Start (11/12/19 12:51) Chest Pa/Lat (2 View) (11/12/19 12:51) Albuterol Pre-Mix Nebs (Rt) (Proventil (11/12/19 14:19) Svn Small Volume Nebulizer (11/12/19 14:19) Ns Iv 500 Ml (Sodium Chloride 0.9%) (11/12/19 14:19) Urine Culture (11/12/19 15:08) Medications Given in ED Current Medications Medications Dose Ordered Sig/Diana Route Start Time Stop Time Status Last Admin Dose Admin Sodium Chloride 500 ml @ 0 mls/hr Q0M ONCE IV 11/12/19 14:19 11/12/19 14:21 DC 11/12/19 14:23 500 MLS/HR Vital Signs/I&O 11/12/19 11/12/19 11/12/19 12:57 14:28 15:16 Temp 36.9 36.6 Pulse 78 92 Resp 18 16 B/P (MAP) 131/80 (97) 134/90 Pulse Ox 98 95 98 O2 Delivery Room Air Room Air Room Air Capillary Refill : Less Than 3 Seconds Blood Pressure Mean: 97 Progress Note : Progress Note Chest x-ray and labs suggested no pneumonia or bacterial infection. Influenza screen was negative. Urine suggested urinary tract infection. See discharge instructions and prescriptions. Diagnostic Imaging Diagonstic Imaging: Xray Plain Films/CT/US/NM/MRI: chest Comments NAME: ROSMERY [facility]LOS [facility] REC#: [id number] PT STATUS: DEP ER : 1940 PHYSICIAN: SHIELA KAHN MD ADMIT DATE: 11/12/19/ER Signed Date of Exam:11/12/19 CHEST PA/LAT (2 VIEW) INDICATION: Cough and fever. COMPARISON: 04/13/2017 FINDINGS: No focal pulmonary infiltrate or consolidation is evident. There are no findings of an effusion. The lungs appear mildly hyperinflated. Heart size and mediastinal contour are stable from previous exam. There are no findings of abnormal pulmonary vascularity. There is no acute or suspicious osseous abnormality. IMPRESSION: Stable radiographic appearance of the chest. No acute cardiopulmonary process demonstrated. Dictated by: Dictated on workstation # [id number] Dict: 11/12/19 1350 Trans: 11/12/19 1558 [facility] [id number] Interpreted by: MARLINE ROSENTHAL MD Electronically signed by: MARLINE ROSENTHAL MD 11/12/19 1558 Reviewed: Reviewed by Me Departure Impression Primary Impression: Acute bronchitis Qualified Codes: J20.9 - Acute bronchitis, unspecified Additional Impression: Nausea and vomiting Qualified Codes: R11.2 - Nausea with vomiting, unspecified Disposition: HOME, SELF-CARE Condition: Improved Departure-Patient Inst. Decision time for Depature: 15:03 Referrals: FOREIGN JACKSON MD (PCP/Family) Primary Care Physician Patient Instructions: Acute Bronchitis Add. Discharge Instructions: Drink plenty of clear liquids. Use your inhaler 2 puffs every 4 hours as needed for shortness of breath, wheezing, or uncontrolled coughing. Uses Zofran (ondansetron) dissolved under the tongue every 4 hours as needed for nausea and vomiting. Follow-up with your primary care provider if not improving over the next couple of days. Return to the emergency room if you have worsening symptoms despite these treatments. All discharge instructions reviewed with patient and/or family. Voiced understanding. Scripts Cephalexin (Keflex) 500 Mg Capsule 500 MG PO TID, #20 CAP Prov: SHIELA KAHN MD 11/12/19 Albuterol Sulfate (PROAIR HFA) 1 Puff Puff 2 PUFF IH Q4H, #1 PUFF 1 PUFF = 90 MCG Prov: SHIELA KAHN MD 11/12/19 Ondansetron (Ondansetron Odt) 4 Mg Tab.rapdis 4 MG SL Q4H PRN for NAUSEA/VOMITING, #10 TAB Prov: SHIELA KAHN MD 11/12/19 SHIELA KAHN MD Nov 12, 2019 15:04
[2019-11-12] MEDS ORDERED: RT-ALBUINH IH (15:07)
[2019-11-12] MEDS ORDERED: ONDA4TAB11 SL (15:07)
[2019-11-12 15:13] LABS: BILIRUBIN,URINE NEGATIVE (NEGATIVE); CLARITY,URINE CLEAR; COLOR,URINE YELLOW; GLUCOSE, URINE (UA) NEGATIVE (NEGATIVE); KETONES,URINE TRACE (NEGATIVE); LEUKOCYTE ESTERASE ,URINE 2+ (NEGATIVE); NITRITE,URINE POSITIVE (NEGATIVE); PH,URINE 5.5 (5-9); PROTEIN,URINE NEGATIVE (NEGATIVE)
[2019-11-12 15:16] VITALS: BP 134/90
[2019-11-12 15:33] LABS: BACTERIA,URINE LARGE /HPF; RBC,URINE RARE /HPF
[2019-11-12] MEDS ORDERED: CEPH-507 PO (22:08)
== END 2019-11-12 15:17 | disposition home or self-care (01) ==
LOC: EDUNIT# 12:22 → ER 12:23
DX: J20.9 Acute bronchitis, unspecified (principal); R11.2 Nausea with vomiting, unspecified; J45.909 Unspecified asthma, uncomplicated; I10 Essential (primary) hypertension; E78.00 Pure hypercholesterolemia, unspecified; K21.9 Gastro-esophageal reflux disease without esophagitis; Z88.6 Allergy status to analgesic agent; Z96.653 Presence of artificial knee joint, bilateral
CPT/HCPCS: 36415; 71046; 80053; 81000; 85025; 87077; 87088; 87186; 87804; 94640; 96360

== ENCOUNTER → 2020-07-26 | Outpatient (CLI) | payer MEDICARE ==
[~2020-07-26] MED LIST changes: +ASPI-1238 PO; -ASPI-983 PO; +CEPH-507 PO; +ONDA4TAB11 SL; +RT-ALBUINH IH
[2020-07-26 10:24] LABS: ALBUMIN 4.1 GM/DL (3.2-4.5); BILIRUBIN,TOTAL 0.7 MG/DL (0.1-1.0); CALCIUM 9.4 MG/DL (8.5-10.1); CREATININE SERUM 1.09 MG/DL (0.60-1.30); POTASSIUM 4.3 MMOL/L (3.6-5.0); TOTAL PROTEIN 7.3 GM/DL (6.4-8.2)
== END ==
LOC: LAB 09:46
PROVIDERS: ATTEND Internal Medicine Cardiovascular Disease
DX: I11.0 Hypertensive heart disease with heart failure (principal); I50.22 Chronic systolic (congestive) heart failure; E78.2 Mixed hyperlipidemia; I71.4 Abdominal aortic aneurysm, without rupture
CPT/HCPCS: 36415; 80053; 80061

== ENCOUNTER → 2020-07-31 | Outpatient (CLI) | payer MEDICARE ==
[~2020-07-31] VITALS: Ht 167 cm; Wt 78.0 kg
[~2020-07-31] MED LIST changes: +CATHETER FLUSH 10 ML SYR IV PRN; +REGADENOSON 0.4 MG/5 ML SYR (LEXISCAN) IV ONE
[2020-07-31 12:46] VITALS: BP 154/95
--- NOTE | 2020-08-01 08:07 | Cardiology Stress Test Report ---
Stress Test Report Date of Procedure/Referring: Date of Procedure: Jul 31, 2020 PCP Keaton Huntley MD Admitting Physician Kera Jackson MD Indications: CHF Baseline Heart Rate: 58 Baseline Blood Pressure: Blood Pressure Systolic: 154 Blood Pressure Diastolic: 95 Baseline Vitals Vital Signs Date Time Temp Pulse Resp B/P (MAP) Pulse Ox O2 Delivery O2 Flow Rate FiO2 07/31/20 12:46 58 154/95 (114) 98 Baseline EKG: Baseline EKG: normal sinus rhythm Summary After explaining the procedure to the patient, she signed a consent and then brought to the stress nuclear laboratory. Patient received 0.4 mg Lexiscan for stress test, ECG, heart rate and blood pressure were monitored continuously. Resting and stress dose of radio tracer were injected, imaging was acquired and reviewed in short axis, horizontal long axis and vertical long axis views. TID: 1.07 SSS: 6 SDS: 6 EF: 66 1. Patient tolerated Lexiscan well 2. Extracardiac attenuation, no significant ischemia or infarction on SPECT images 3. Normal left ventricular size, EF 66 percent KEATON HUNTLEY MD Aug 01, 2020 08:07
== END ==
LOC: CARD 11:08
PROVIDERS: ATTEND Internal Medicine Cardiovascular Disease
DX: I11.0 Hypertensive heart disease with heart failure (principal); I50.9 Heart failure, unspecified; I71.4 Abdominal aortic aneurysm, without rupture; E78.5 Hyperlipidemia, unspecified
CPT/HCPCS: 78452; 93017; A9502

== ENCOUNTER → 2020-08-05 | Outpatient (CLI) | payer MEDICARE ==
[~2020-08-05] MED LIST changes: -CATHETER FLUSH 10 ML SYR IV PRN; +HOLD METFORMIN - RECEIVED CONTRAST 20 ML VIAL IV SCH; +IOHEXOL 350 MG/ML 100 ML (OMNIPAQUE 350) VIAL IV ONE; +NS 100 ML (IVPB) BAG IV ONE; -REGADENOSON 0.4 MG/5 ML SYR (LEXISCAN) IV ONE
[2020-08-05 11:46] LABS: CREATININE SERUM 1.02 MG/DL (0.60-1.30)
--- NOTE | 2020-08-05 13:09 | Diagnostic Imaging Report ---
PROCEDURE: CT angiography of the chest with contrast. TECHNIQUE: Multiple contiguous axial images were obtained through the chest after uneventful bolus administration of intravenous contrast. 3D reconstructed CTA MIP acquisitions were also performed. Auto Exposure Controls were utilized during the CT exam to meet ALARA standards for radiation dose reduction. INDICATION: History of hyperlipidemia, hypertension, congestive heart failure. Thoracic and abdominal aortic aneurysm. CORRELATION: 05/18/2011. FINDINGS: The heart size is enlarged. The maximum dimension of the ascending aorta is 3.3 cm. Normal three-vessel branching pattern of the aortic arch. Descending thoracic aorta is unremarkable apart from mild wall calcification. In the abdomen, the celiac trunk, superior mesenteric artery, and bilateral renal arteries are patent. There is fusiform infrarenal abdominal aortic aneurysm with a maximum dimension of 3.9 x 3.8 cm. No abnormal periaortic fluid collection. The pulmonary arteries are suboptimally opacified for assessment of potential pulmonary embolism. Calcified granulomas are noted in the mediastinum and right hilum. There is again demonstration of asymmetric enlargement of the suprahepatic portion of the inferior vena cava which appears generally stable from prior. The lung shukla are clear of infiltrate. Calcified granuloma of the right upper lung. Calcified granulomas through the spleen. Mildly accentuated thoracic kyphosis and degenerative changes of the thoracic spine. IMPRESSION: 1. Negative for acute abnormality of the chest. 2. Thoracic aorta demonstrates mild atherosclerotic change. No bessie aneurysmal dilatation or dissection. 3. Fusiform infrarenal abdominal aortic aneurysm with the visualized portions measuring up to just under 4 cm in maximum dimension. Dictated by: Dictated on workstation # [id number]
== END ==
LOC: CARD 11:14
PROVIDERS: ATTEND Internal Medicine Cardiovascular Disease
DX: I71.4 Abdominal aortic aneurysm, without rupture (principal); I11.0 Hypertensive heart disease with heart failure; I50.22 Chronic systolic (congestive) heart failure; E78.2 Mixed hyperlipidemia
CPT/HCPCS: 36415; 71275; 82565; 84520; 93306

== ENCOUNTER 2021-01-05 20:11 | Emergency (ER) | payer MEDICARE ==
[~2021-01-05] VITALS: Ht 170 cm; Wt 83.0 kg
[~2021-01-05 20:11] MED LIST changes: -HOLD METFORMIN - RECEIVED CONTRAST 20 ML VIAL IV SCH; -IOHEXOL 350 MG/ML 100 ML (OMNIPAQUE 350) VIAL IV ONE; -LISI10TA2 PO; +LISI10TA25 PO; -NS 100 ML (IVPB) BAG IV ONE
[2021-01-05] MEDS ORDERED: fentaNYL INJ 100 MCG/2 ML AMP ONE (20:21)
[2021-01-05] MEDS ORDERED: fentaNYL INJ 100 MCG/2 ML AMP IVP ONE ×2 (20:30→21:45)
--- NOTE | 2021-01-05 20:35 | ED Back Pain ---
General Chief Complaint: Back Problems Stated Complaint: BACK PAIN Source of Information: Patient Exam Limitations: No Limitations History of Present Illness Date Seen by Provider: Jan 05, 2021 Time Seen by Provider: 20:31 Initial Comments To ER with severe thoracic back pain for the past 3 to 4 days. It hurts worse to move and take a deep breath. It does not radiate through to the front. It began after lifting one of her grandchildren and got progressively worse. She did not fall. She has a known abdominal aortic aneurysm but no known thoracic aneurysm. Pain does not radiate down either of her arms or legs. No loss of bowel or bladder control. Location: T-Spine Timing/Duration: 2-3 Days Severity: Moderate Pain/Injury Location: Back Method of Injury: Unknown Associated Symptoms: denies symptoms Allergies and Home Medications Allergies Coded Allergies: NSAIDS (Non-Steroidal Anti-Inflamma (Verified Allergy, Unknown, 03/21/09) Home Medications Albuterol Sulfate 1 Puff Puff, 2 PUFF IH Q4H 1 PUFF = 90 MCG Prescribed by: SHIELA ISAACS on 11/12/19 1507 Cephalexin 500 Mg Capsule, 500 MG PO TID Prescribed by: SHIELA ISAACS on 11/12/19 2208 Ezetimibe/Simvastatin 1 Each Tablet, 1 EACH PO DAILY, (Reported) Fesoterodine Fumarate 4 Mg Tab.sr.24h, 4 MG PO DAILY, (Reported) Hydrocodone/Acetaminophen 1 Each Tablet, 1 TAB PO Q6H PRN for PAIN-MODERATE (5- 7) Prescribed by: JORGE BLOOM on 01/05/21 215 Losartan Potassium 25 Mg Tablet, 25 MG PO HS, (Reported) Losartan Potassium 50 Mg Tablet, 50 MG PO DAILY, (Reported) Metoprolol Succinate 50 Mg Tab.er.24h, 50 MG PO DAILY, (Reported) Multivitamin 1 Each Capsule, 1 EACH PO DAILY, (Reported) Ondansetron 4 Mg Tab.rapdis, 4 MG SL Q4H PRN for NAUSEA/VOMITING Prescribed by: SHIELA ISAACS on 11/12/19 1507 Pantoprazole Sodium 40 Mg Tablet.dr, 40 MG PO DAILY Prescribed by: NANCY RODRIGUEZ on 11/29/18 1105 Tramadol HCl 50 Mg Tablet, 50 MG PO BID, (Reported) Patient Home Medication List Home Medication List Reviewed: Yes Review of Systems Constitutional: see HPI EENTM: see HPI Respiratory: no symptoms reported Cardiovascular: no symptoms reported Genitourinary: no symptoms reported Musculoskeletal: see HPI, back pain Skin: no symptoms reported Psychiatric/Neurological: No Symptoms Reported Past Iadxgxe-Rdpokh-Bbjaio Hx Patient Social History 2nd Hand Smoke Exposure: No Recent Hopitalizations: No Immunizations Up To Date Tetanus Booster (TDap): Unknown PED Vaccines UTD: Yes Date of Pneumonia Vaccine: Jul 08, 2019 Date of Influenza Vaccine: Jul 03, 2019 Seasonal Allergies Seasonal Allergies: No Past Medical History Surgeries: Yes (knees replaced bilateral) Hysterectomy, Joint Replacement, Orthopedic, Tonsillectomy, Tubal Ligation Respiratory: Yes (hx. 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 Physical Exam Vital Signs Vital Signs - First Documented 01/05/21 20:20 Temp 36.5 Pulse 72 Resp 20 B/P (MAP) 150/89 (109) Pulse Ox 91 O2 Delivery Room Air Capillary Refill : Height, Weight, BMI Height: 5'6.00" Weight: 167lbs. 6.0oz. 75.950844ed; 27.96 BMI Method:Stated General Appearance: WD/WN, Mild Distress Neck: Full Range of Motion, Normal Inspection Respiratory: Normal Breath Sounds, No Accessory Muscle Use, No Respiratory Dis tress Gastrointestinal: Normal Bowel Sounds, Non Tender, Soft Back: Normal Inspection, Other (Thoracic kyphosis) Extremity: Normal Capillary Refill, Normal Inspection Neurologic/Psychiatric: Alert, Oriented x3 Skin: Normal Color, Warm/Dry Progress/Results/Core Measures Results/Orders Lab Results Laboratory Tests Test 01/05/21 20:35 Range/Units White Blood Count 9.5 4.3-11.0 10^3/uL Red Blood Count 3.86 3.80-5.11 10^6/uL Hemoglobin 12.0 11.5-16.0 g/dL Hematocrit 38 35-52 % Mean Corpuscular Volume 97 80-99 fL Mean Corpuscular Hemoglobin 31 25-34 pg Mean Corpuscular Hemoglobin Concent 32 32-36 g/dL Red Cell Distribution Width 13.3 10.0-14.5 % Platelet Count 232 130-400 10^3/uL Mean Platelet Volume 9.7 9.0-12.2 fL Immature Granulocyte % (Auto) 0 % Neutrophils (%) (Auto) 66 42-75 % Lymphocytes (%) (Auto) 19 12-44 % Monocytes (%) (Auto) 9 0-12 % Eosinophils (%) (Auto) 5 0-10 % Basophils (%) (Auto) 0 0-10 % Neutrophils # (Auto) 6.3 1.8-7.8 10^3/uL Lymphocytes # (Auto) 1.8 1.0-4.0 10^3/uL Monocytes # (Auto) 0.9 0.0-1.0 10^3/uL Eosinophils # (Auto) 0.5 H 0.0-0.3 10^3/uL Basophils # (Auto) 0.0 0.0-0.1 10^3/uL Immature Granulocyte # (Auto) 0.0 0.0-0.1 10^3/uL Prothrombin Time 13.7 12.2-14.7 SEC INR Comment 1.0 0.8-1.4 Sodium Level 141 135-145 MMOL/L Potassium Level 4.0 3.6-5.0 MMOL/L Chloride Level 104 98-107 MMOL/L Carbon Dioxide Level 26 21-32 MMOL/L Anion Gap 11 5-14 MMOL/L Blood Urea Nitrogen 15 7-18 MG/DL Creatinine 0.97 0.60-1.30 MG/DL Estimat Glomerular Filtration Rate 55 BUN/Creatinine Ratio 15 Glucose Level 125 H 70-105 MG/DL Calcium Level 8.9 8.5-10.1 MG/DL Corrected Calcium 8.9 8.5-10.1 MG/DL Total Bilirubin 0.3 0.1-1.0 MG/DL Aspartate Amino Transf (AST/SGOT) 17 5-34 U/L Alanine Aminotransferase (ALT/SGPT) 12 0-55 U/L Alkaline Phosphatase 72 40-136 U/L Troponin I < 0.028 <0.028 NG/ML B-Type Natriuretic Peptide 147.7 H <100.0 PG/ML Total Protein 7.0 6.4-8.2 GM/DL Albumin 4.0 3.2-4.5 GM/DL My Orders Orders - JORGE BLOOM APRN Fentanyl Inj (Sublimaze Injection) (01/05/21 20:21) Ct Angio Chest W (01/05/21 20:29) Ekg Tracing (01/05/21:29) Cbc With Automated Diff (01/05/21:) Comprehensive Metabolic Panel (01/05/21:29) Ed Iv/Invasive Line Start (01/05/21 20:29) BNP (01/05/21 20:29) Protime With Inr (01/05/21:29) Fentanyl Inj (Sublimaze Injection) (01/05/21 20:30) Lactated Ringers (Lr 1000 Ml Iv Solution (01/05/21 20:45) Iohexol Injection (Omnipaque 350 Mg/Ml 1 (01/05/21 21:00) Received Contrast (Hold Metformin- Contr (01/05/21 21:00) Ns (Ivpb) (Sodium Chloride 0.9% Ivpb Bag (01/05/21 21:00) Troponin I (01/05/21 21:15) Tramadol Tablet (Ultram Tablet) (01/05/21 21:45) Fentanyl Inj (Sublimaze Injection) (01/05/21 21:45) Rx-Hydrocodone/Apap 5-325 Mg (Rx-Vicodin (01/05/21 22:00) Medications Given in ED Current Medications Medications Dose Ordered Sig/Diana Route Start Time Stop Time Status Last Admin Dose Admin Fentanyl Citrate 25-50 mg Q1H ONCE IVP 01/05/21 21:45 01/05/21 21:46 DC 01/05/21 21:41 50 MCG Fentanyl Citrate 25-50mcg IV x1 ONCE ONCE IVP 01/05/21 20:30 01/05/21 20:31 DC 01/05/21 20:35 25 MCG Iohexol 100 ml ONCE ONCE IV 01/05/21 21:00 01/05/21 21:01 DC 01/05/21 21:10 72 ML Sodium Chloride 100 ml ONCE ONCE IV 01/05/21 21:00 01/05/21 21:01 DC 01/05/21 21:10 70 ML Vital Signs/I&O 01/05/21 20:20 Temp 36.5 Pulse 72 Resp 20 B/P (MAP) 150/89 (109) Pulse Ox 91 O2 Delivery Room Air Departure Communication (Admissions) Family Conversation [phone]-Based on her presentation I would suspect a compression fracture of the thoracic spine that was not seen on CT imaging. Aorta is normal, troponins negative, all discharged home with a prescription for hydrocodone and follow-up with primary care this week. NAME: ROSMERY CARLOS [facility] REC#: [id number] PT STATUS: REG ER : 1940 PHYSICIAN: JORGE BLOOM OIL DRILLER ADMIT DATE: 01/05/21/ER Draft Date of Exam:01/05/21 CT ANGIO CHEST W PROCEDURE: CT angiography of the chest with contrast. TECHNIQUE: Multiple contiguous axial images were obtained through the chest after uneventful bolus administration of intravenous contrast. 3D reconstructed CTA MIP acquisitions were also performed. Auto Exposure Controls were utilized during the CT exam to meet ALARA standards for radiation dose reduction. INDICATION: Severe thoracic pain. COMPARISON: 08/05/2020. There is good opacification of the thoracic aorta. There is mild atherosclerotic calcification with normal three-vessel branching pattern from the arch. There is moderate hiatal hernia. Mild dependent atelectasis and/or pneumonitis is seen in the lung bases. There is suboptimal opacification of pulmonary arteries; however, no filling defect is identified. There is no significant pleural or pericardial fluid. IMPRESSION: Aortic atherosclerosis and moderate hiatal hernia. Otherwise, no acute abnormality is identified apart from mild basilar atelectasis and/or pneumonitis. Dictated on workstation # [id number] Dict: 01/05/212115 Trans: 01/05/212129 [facility] [id number] Interpreted by: SHARON ESCOBAR MD Electronically signed by: Impression Primary Impression: Thoracic back pain Disposition: HOME, SELF-CARE Condition: Stable Departure-Patient Inst. Decision time for Depature: 21:52 Referrals: FOREIGN JACKSON MD (PCP/Family) Primary Care Physician Patient Instructions: Upper Back Pain Add. Discharge Instructions: 1. Return to ER for any concerns 2. Follow-up with Dr. Jackson this week. All discharge instructions reviewed with patient and/or family. Voiced understanding. Scripts Hydrocodone/Acetaminophen (Hydrocodone-Acetamin 5-325 mg) 1 Each Tablet 1 TAB PO Q6H PRN for PAIN-MODERATE (5-7), #10 TAB Prov: JORGE BLOOM OIL DRILLER 01/05/21 Copy Copies To 1: FOREIGN JACKSON MD, PETER J APRN Jan 05, 2021 20:35
[2021-01-05 20:42] LABS: BASOPHILS % (AUTO) 0 % (0-10); EOSINOPHILS # (AUTO) 0.5 10^3/uL (0.0-0.3); EOSINOPHILS % (AUTO) 5 % (0-10); HEMATOCRIT 38 % (35-52); LYMPHOCYTES # (AUTO) 1.8 10^3/uL (1.0-4.0); LYMPHOCYTES % (AUTO) 19 % (12-44); MEAN CORPUSCULAR HEMOGLOBIN 31 pg (25-34); MEAN CORPUSCULAR HGB CONC 32 g/dL (32-36); MEAN CORPUSCULAR VOLUME 97 fL (80-99); MEAN PLATELET VOLUME 9.7 fL (9.0-12.2); MONOCYTES # (AUTO) 0.9 10^3/uL (0.0-1.0); MONOCYTES % (AUTO) 9 % (0-12); NEUTROPHILS # (AUTO) 6.3 10^3/uL (1.8-7.8); NEUTROPHILS % (AUTO) 66 % (42-75); PLATELET COUNT 232 10^3/uL (130-400); WHITE BLOOD COUNT 9.5 10^3/uL (4.3-11.0)
[2021-01-05] MEDS ORDERED: LACTATED RINGERS 1,000 ML IV SCH (20:45)
[2021-01-05 20:53] LABS: PROTHROMBIN TIME PATIENT 13.7 SEC (12.2-14.7)
[2021-01-05 20:54] LABS: CALCIUM 8.9 MG/DL (8.5-10.1)
[2021-01-05 20:57] LABS: BILIRUBIN,TOTAL 0.3 MG/DL (0.1-1.0)
[2021-01-05 20:59] LABS: CREATININE SERUM 0.97 MG/DL (0.60-1.30)
[2021-01-05] MEDS ORDERED: IOHEXOL 350 MG/ML 100 ML (OMNIPAQUE 350) VIAL IV ONE (21:00)
[2021-01-05] MEDS ORDERED: NS 100 ML (IVPB) BAG IV ONE (21:00)
[2021-01-05] MEDS ORDERED: HOLD METFORMIN - RECEIVED CONTRAST 20 ML VIAL IV SCH (21:00)
--- NOTE | 2021-01-05 21:30 | Diagnostic Imaging Report ---
PROCEDURE: CT angiography of the chest with contrast. TECHNIQUE: Multiple contiguous axial images were obtained through the chest after uneventful bolus administration of intravenous contrast. 3D reconstructed CTA MIP acquisitions were also performed. Auto Exposure Controls were utilized during the CT exam to meet ALARA standards for radiation dose reduction. INDICATION: Severe thoracic pain. COMPARISON: 08/05/2020. There is good opacification of the thoracic aorta. There is mild atherosclerotic calcification with normal three-vessel branching pattern from the arch. There is moderate hiatal hernia. Mild dependent atelectasis and/or pneumonitis is seen in the lung bases. There is suboptimal opacification of pulmonary arteries; however, no filling defect is identified. There is no significant pleural or pericardial fluid. IMPRESSION: Aortic atherosclerosis and moderate hiatal hernia. Otherwise, no acute abnormality is identified apart from mild basilar atelectasis and/or pneumonitis. Dictated by: Dictated on workstation # [id number]
[2021-01-05] MEDS ORDERED: ACHD5005 PO (21:55)
[2021-01-05] MEDS ORDERED: RX-HYDROCODONE/APAP 5/325 MG #4 TAB PK PO PRN (22:00)
[2021-01-05 22:59] VITALS: BP 180/85
== END 2021-01-05 22:59 | disposition home or self-care (01) ==
LOC: EDUNIT# 20:11 → ER 20:14
DX: M54.6 Pain in thoracic spine (principal); I10 Essential (primary) hypertension; J45.909 Unspecified asthma, uncomplicated; E78.00 Pure hypercholesterolemia, unspecified; K21.9 Gastro-esophageal reflux disease without esophagitis; G89.29 Other chronic pain; M54.9 Dorsalgia, unspecified; Z95.9 Presence of cardiac and vascular implant and graft, unspecified; Z88.6 Allergy status to analgesic agent; Z79.891 Long term (current) use of opiate analgesic
CPT/HCPCS: 36415; 71275; 80053; 83880; 84484; 85025; 85610; 93005

== ENCOUNTER 2021-06-20 05:27 | Outpatient (RCR) | payer MEDICARE ==
[~2021-06-20] VITALS: Ht 167.6 cm; Wt 83.0 kg
[~2021-06-20 05:27] MED LIST changes: -SUCR1TAB36 PO
[2021-06-24] MEDS ORDERED: SUCR1TAB36 PO (09:46)
== END 2021-06-23 10:37 | disposition home or self-care (01) ==
LOC: PREOP 05:27
PROVIDERS: ATTEND Surgery
DX: Z01.818 Encounter for other preprocedural examination (principal)
CPT/HCPCS: 87635

== ENCOUNTER → 2021-06-20 | Outpatient (CLI) | payer MEDICARE ==
[~2021-06-20] MED LIST changes: +ACHD5005 PO; +ALEN70TA80 PO; +EZET-57 PO; -EZET1TAB65 PO; +LOSA100T57 PO; +SALM1CAP4 PO; +SUCR1TAB36 PO; +VIT1CAPS44 PO
== END ==
LOC: LABNPT 08:37
PROVIDERS: ATTEND Family Medicine
DX: Z20.822 Contact with and (suspected) exposure to COVID-19 (principal)
CPT/HCPCS: 87635

== ENCOUNTER 2021-06-24 08:12 | Day surgery (SDC) | payer MEDICARE ==
[~2021-06-24] VITALS: Ht 167.6 cm; Wt 83.0 kg
[2021-06-24] MEDS ORDERED: LACTATED RINGERS 1,000 ML IV STA (08:14)
[2021-06-24] MEDS ORDERED: HURRICAINE EXT TUBE (BENZOCAINE) XX PRN (08:15)
[2021-06-24] MEDS ORDERED: LACTATED RINGERS 1,000 ML IV ONE (08:15)
[2021-06-24 08:25] VITALS: BP 174/96
--- NOTE | 2021-06-24 08:44 | Progress Note-Pre Operative ---
Pre-Operative Progress Note H&P Reviewed The H&P was reviewed, patient examined and no changes noted. Date Seen by Provider: Jun 24, 2021 Time Seen by Provider: 08:44 Date H&P Reviewed: Jun 24, 2021 Time H&P Reviewed: 08:44 Pre-Operative Diagnosis: dysphagia NANCY RODRIGUEZ DO Jun 24, 2021 08:44
[2021-06-24] MEDS ORDERED: PROPOFOL INJECTION 50 ML IV ONE (09:23)
[2021-06-24] MEDS ORDERED: SUCR1TAB36 PO (09:46)
--- NOTE | 2021-06-24 09:47 | Discharge Inst-Simple/Standard ---
Discharge Inst-Standard Discharge Medications New, Converted or Re-Newed RX: Transmitted to Pharmacy Patient Instructions/Follow Up Plan of Care/Instructions/FU: 3 weeks blane Activity as Tolerated: Yes Discharge Diet: Regular Diet NANCY RODRIGUEZ DO Jun 24, 2021 09:47
--- NOTE | 2021-06-24 09:49 | Progress Note-Post Operative ---
Post-Operative Progess Note Surgeon (s)/Concrete Mixing Truck Driver (s) Surgeon NANCY RODRIGUEZ DO Concrete Mixing Truck Driver: na Pre-Operative Diagnosis dysphagia Post-Operative Diagnosis sliding hiatal hernia Procedure & Operative Findings Date of Procedure 06/24/21 Procedure Performed/Findings egd c biopsies Anesthesia Type per bumboater Estimated Blood Loss Estimated blood loss (mL): none Specimens/Packing Specimens Removed antrum, ge NANCY RODRIGUEZ DO Jun 24, 2021 09:49
[2021-06-24 09:50] VITALS: BP 107/59
[2021-06-24 09:55] VITALS: BP 115/61
[2021-06-24 09:59] VITALS: BP 115/62
[2021-06-24 10:00] VITALS: BP 148/71
[2021-06-24 10:24] VITALS: BP 155/81
--- NOTE | 2021-06-24 14:32 | Anesthesia-General Post-Op ---
MAC Patient Condition Mental Status/LOC: Same as Preop Cardiovascular: Satisfactory Nausea/Vomiting: Absent Respiratory: Satisfactory Pain: Controlled Complications: Absent Post Op Complications Complications None Follow Up Care/Instructions Patient Instructions None needed. Anesthesiology Discharge Order Discharge Order Patient is doing well, no complaints, stable vital signs, no apparent adverse anesthesia problems. No complications reported per nursing. BJ PINEDA CRNA Jun 24, 2021 14:32
--- NOTE | 2021-06-24 15:21 | OPERATIVE REPORT ---
DATE OF SERVICE: 06/24/2021 PREOPERATIVE DIAGNOSIS: Dysphagia. POSTOPERATIVE DIAGNOSES: Sliding hiatal hernia. PROCEDURES PERFORMED: EGD with biopsy. SURGEON: Nancy Sherman DO. ANESTHESIA: Per CENTRAL PROCESSING TECHNICIAN. ESTIMATED BLOOD LOSS: None. COMPLICATIONS: None. INDICATIONS FOR PROCEDURE: The patient is an 80-year-old female with dysphagia symptoms. She understands risks and benefits of procedure and wished to proceed with the procedure. Consent was signed in the chart. DESCRIPTION OF PROCEDURE: The patient was taken to the endoscopy suite and placed in a left lateral recumbent position. A timeout was performed. Scope was inserted in the mouth, down the esophagus, stomach and into the duodenum without difficulty. There were no polyps, masses or ulcerations within the duodenum. Scope was slowly retracted back into the stomach, where it was further insufflated. No masses or ulcerations. There were few small benign appearing polyps throughout the stomach. Scope was retroflexed noting a sliding hiatal hernia, no other pathology. Scope was returned to its normal position. Biopsy of the antrum was obtained. Scope was then slowly retracted back. Biopsy of the GE junction was obtained. No polyps, masses or ulcerations were present. Scope was slowly retracted back until completely removed. The patient tolerated procedure well without any complications. She was taken to the recovery room in a stable condition. RECOMMENDATIONS: The patient will continue on current medications. We will add Carafate 1 gram four times a day to see if this has any improvement of her symptoms. The patient will follow up in the office in approximately three to four weeks to see how she is doing at that time. Job ID: [id number] DocumentID: [id number] Dictated Date: 06/24/2021 09:50:54 Clerical Dentist Assistant Date: 06/24/2021 15:20:17 Dictated By: NANCY SHERMAN DO
== END 2021-06-24 10:46 | disposition home or self-care (01) ==
LOC: ENDO 08:12
PROVIDERS: ATTEND Surgery
DX: K29.50 Unspecified chronic gastritis without bleeding (principal); K44.9 Diaphragmatic hernia without obstruction or gangrene; I11.9 Hypertensive heart disease without heart failure; J45.909 Unspecified asthma, uncomplicated; E78.2 Mixed hyperlipidemia; E78.00 Pure hypercholesterolemia, unspecified; K21.9 Gastro-esophageal reflux disease without esophagitis; E66.9 Obesity, unspecified; Z99.81 Dependence on supplemental oxygen; Z79.899 Other long term (current) drug therapy; Z88.8 Allergy status to other drugs, medicaments and biological substances; Z82.49 Family history of ischemic heart disease and other diseases of the circulatory system

== ENCOUNTER → 2021-08-01 | Outpatient (CLI) | payer MEDICARE ==
[~2021-08-01] MED LIST changes: +SUCR1TAB36 PO
[2021-08-01 10:06] LABS: BILIRUBIN,TOTAL 0.6 MG/DL (0.1-1.0); CALCIUM 9.3 MG/DL (8.5-10.1); CREATININE SERUM 0.99 MG/DL (0.60-1.30); POTASSIUM 4.2 MMOL/L (3.6-5.0); TOTAL PROTEIN 7.1 GM/DL (6.4-8.2)
== END ==
LOC: LAB 09:31
PROVIDERS: ATTEND Physician Assistant
DX: E78.2 Mixed hyperlipidemia (principal); I10 Essential (primary) hypertension
CPT/HCPCS: 36415; 80053; 80061

== ENCOUNTER → 2022-02-24 | Outpatient (CLI) | payer MEDICARE ==
[~2022-02-24] MED LIST changes: +RT-ALBUTEROL SULF 2.5 MG/3 ML PRE-MIX VIAL INH ONE
--- NOTE | 2022-02-24 14:54 | Diagnostic Imaging Report ---
INDICATION: Shortness of air. Time of Exam: 200 p.m. Correlation is made with prior chest 11/12/2019. Finding: The heart size is normal. The pulmonary vascularity is unremarkable. The lungs are clear. No infiltrate, effusion or pneumothorax is detected. Impression: No acute cardiopulmonary process is detected. Dictated by: Dictated on workstation # [id number]
== END ==
LOC: RT 12:22
PROVIDERS: ATTEND Internal Medicine Critical Care Medicine
DX: R06.02 Shortness of breath (principal); K21.00 Gastro-esophageal reflux disease with esophagitis, without bleeding
CPT/HCPCS: 71046; 94060; 94621; 94726; 94729

== ENCOUNTER 2022-04-12 12:12 | Emergency (ER) | payer MEDICARE ==
[~2022-04-12] VITALS: Ht 167.7 cm; Wt 78.0 kg
[~2022-04-12 12:12] MED LIST changes: -RT-ALBUTEROL SULF 2.5 MG/3 ML PRE-MIX VIAL INH ONE
--- NOTE | 2022-04-12 12:38 | ED Respiratory ---
General Stated Complaint: GENAO,COUGH,CONGESTION,FEVER, COVID EXP Source: patient Exam Limitations: no limitations History of Present Illness Date Seen by Provider: Apr 12, 2022 Time Seen by Provider: 12:40 Initial Comments Patient is an 81-year-old female who presents to the emergency department with her daughter chief complaint severe headache, cough congestion, low-grade fever. She lives at home with her daughter who was diagnosed with COVID approximately a week ago. The daughter states that she has not really been isolating from her. She developed symptoms yesterday. She has had 1 vaccination approximately 2 years ago. She is not a diabetic. She denies any leg pain, calf cramping or swelling. No problems with urination, no diarrhea. No black or bloody stools. She is not currently short of breath. She does wear oxygen at night. No history of smoking. She has a history of heart disease and an abdominal aortic aneurysm, she is followed by Dr. Huntley. She does have some low back pain onset yesterday. It does not radiate. Denies abdominal pain. Feels generally weak. States her appetite has been okay. Did take a tramadol this morning that did not help her headache. All other review of systems reviewed and negative except as stated. Timing/Duration: yesterday Severity: moderate Prior Episodes/Possible Cause: illness exposure Associated Symptoms: cough, fever/chills, headache, nasal congestion Allergies and Home Medications Allergies Coded Allergies: NSAIDS (Non-Steroidal Anti-Inflamma (Verified Allergy, Unknown, 03/21/09) Patient Home Medication List Home Medication List Reviewed: Yes Alendronate Sodium (Alendronate Sodium) 70 Mg Tablet, 70 MG PO DAILY, (Reported) Entered as Reported by: FRANCESCA VILLARREAL on 06/18/21 0841 Ezetimibe/Simvastatin (Ezetimibe-Simvastatin 10-20 mg) 1 Each Tablet, 1 EACH PO DAILY, (Reported) Entered as Reported by: SHANTI MANUEL on 11/28/18 1607 Losartan Potassium (Losartan Potassium) 100 Mg Tablet, 100 MG PO DAILY, (Reported) Entered as Reported by: FRANCESCA VILLARREAL on 06/18/21 0841 Metoprolol Succinate (Metoprolol Succinate) 50 Mg Tab.er.24h, 50 MG PO DAILY, (Reported) Entered as Reported by: BABAR MARTINEZ on 01/27/17 1026 Multivitamin (Multivitamins) 1 Each Capsule, 1 EACH PO DAILY, (Reported) Entered as Reported by: SHANTI MANUEL on 11/28/18 1607 Pantoprazole Sodium (Protonix) 40 Mg Tablet.dr, 40 MG PO DAILY Prescribed by: NANCY RODRIGUEZ on 11/29/18 1105 [place] Oil/[place]-3 Fatty Acids ([place] Oil 1,000 mg Softgel) 1 Each Capsule, 1 E ACH PO DAILY, (Reported) Entered as Reported by: FRANCESCA VILLARREAL on 06/18/21 0841 Sucralfate (Carafate) 1 Gm Tablet, 1 GM PO QID Prescribed by: NANCY RODRIGUEZ on 06/24/21 0946 Tramadol HCl (Tramadol HCl) 50 Mg Tablet, 50 MG PO BID, (Reported) Entered as Reported by: SHANTI MANUEL on 11/28/18 1607 Vit C/E/Zn/Coppr/Lutein/Zeaxan (Preservision Areds 2 Softgel) 1 Each Capsule, 1 EACH PO DAILY, (Reported) Entered as Reported by: FRANCESCA VILLARREAL on 06/18/21 0841 Review of Systems Review of Systems Constitutional: see HPI EENTM: nose congestion Respiratory: cough Cardiovascular: no symptoms reported Gastrointestinal: no symptoms reported Genitourinary: no symptoms reported Musculoskeletal: back pain Skin: no symptoms reported Psychiatric/Neurological: Headache All Other Systems Reviewed Negative Unless Noted: Yes Past Ouykxtz-Vjrakn-Despvl Hx Immunizations Up To Date Tetanus Booster (TDap): Unknown PED Vaccines UTD: Yes First/Initial COVID19 Vaccinat: DECEMBER 2020 Second COVID19 Vaccination Sanjeev: DECEMBER 2020 Third COVID19 Vaccination Date: DECEMBER 2020 Seasonal Allergies Seasonal Allergies: Yes Past Medical History Surgeries: Yes (knees replaced bilateral) Hysterectomy, Joint Replacement, Orthopedic, Tonsillectomy, Tubal Ligation Respiratory: Yes (hx. 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 Physical Exam Vital Signs - First Documented 04/12/22 12:48 Temp 37.1 Pulse 67 Resp 14 B/P (MAP) 129/80 (96) Pulse Ox 95 O2 Delivery Room Air Capillary Refill : Height: 5'6.00" Weight: 167lbs. 6.0oz. 75.377453vo; 29.54 BMI Method:Stated General Appearance: WD/WN, mild distress Eyes: Bilateral Eye Normal Inspection HEENT: PERRL/EOMI, other (Visualized portions of the TM appear normal, mild amount of cerumen bilaterally. 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 nml as tested, no motor/sensory deficits, alert, normal mood/affect, oriented x 3 Skin: normal color, warm/dry Progress/Results/Core Measures Suspected Sepsis SIRS Temperature: Pulse: Respiratory Rate: Laboratory Tests 04/12/22 13:08: White Blood Count 3.6L Blood Pressure / Mean: Laboratory Tests 04/12/22 13:08: Creatinine 1.23, INR Comment 1.1, Platelet Count 181, Total Bilirubin 0.5 Results/Orders Lab Results Laboratory Tests Test 04/12/22 13:00 04/12/22 13:08 Range/Units SARS-CoV-2 RNA (RT-PCR) Detected H Not Detecte White Blood Count 3.6 L 4.3-11.0 10^3/uL Red Blood Count 3.82 3.80-5.11 10^6/uL Hemoglobin 11.9 11.5-16.0 g/dL Hematocrit 36 35-52 % Mean Corpuscular Volume 95 80-99 fL Mean Corpuscular Hemoglobin 31 25-34 pg Mean Corpuscular Hemoglobin Concent 33 32-36 g/dL Red Cell Distribution Width 14.5 10.0-14.5 % Platelet Count 181 130-400 10^3/uL Mean Platelet Volume 9.4 9.0-12.2 fL Immature Granulocyte % (Auto) 0 % Neutrophils (%) (Auto) 49 42-75 % Lymphocytes (%) (Auto) 32 12-44 % Monocytes (%) (Auto) 17 H 0-12 % Eosinophils (%) (Auto) 1 0-10 % Basophils (%) (Auto) 1 0-10 % Neutrophils # (Auto) 1.8 1.8-7.8 10^3/uL Lymphocytes # (Auto) 1.2 1.0-4.0 10^3/uL Monocytes # (Auto) 0.6 0.0-1.0 10^3/uL Eosinophils # (Auto) 0.0 0.0-0.3 10^3/uL Basophils # (Auto) 0.0 0.0-0.1 10^3/uL Immature Granulocyte # (Auto) 0.0 0.0-0.1 10^3/uL Prothrombin Time 14.8 H 12.2-14.7 SEC INR Comment 1.1 0.8-1.4 Activated Partial Thromboplast Time 31 24-35 SEC D-Dimer 2.25 H 0.00-0.49 UG/ML Sodium Level 138 135-145 MMOL/L Potassium Level 3.7 3.6-5.0 MMOL/L Chloride Level 103 98-107 MMOL/L Carbon Dioxide Level 23 21-32 MMOL/L Anion Gap 12 5-14 MMOL/L Blood Urea Nitrogen 13 7-18 MG/DL Creatinine 1.23 0.60-1.30 MG/DL Estimat Glomerular Filtration Rate 44 BUN/Creatinine Ratio 11 Glucose Level 105 70-105 MG/DL Calcium Level 9.0 8.5-10.1 MG/DL Corrected Calcium 9.1 8.5-10.1 MG/DL Total Bilirubin 0.5 0.1-1.0 MG/DL Aspartate Amino Transf (AST/SGOT) 32 5-34 U/L Alanine Aminotransferase (ALT/SGPT) 19 0-55 U/L Alkaline Phosphatase 67 40-136 U/L C-Reactive Protein High Sensitivity 0.38 0.00-0.50 MG/DL Total Protein 6.9 6.4-8.2 GM/DL Albumin 3.9 3.2-4.5 GM/DL Procalcitonin 0.04 <0.10 NG/ML My Orders Orders - LAURA HATCH MD Ed Iv/Invasive Line Start (04/12/22 13:01) Cbc With Automated Diff (04/12/22 13:01) Comprehensive Metabolic Panel (04/12/22 13:01) Protime With Inr (04/12/22 13:01) Partial Thromboplastin Time (04/12/22 13:01) Fibrin Degradation Products (04/12/22 13:01) Procalcitonin (Pct) (04/12/22 13:01) Hs C Reactive Protein (04/12/22 13:01) Covid 19 Inhouse Test (04/12/22 13:01) Isolation Central Supply Req (04/12/22 13:01) Chest 1 View, Ap/Pa Only (04/12/22 13:01) Ns Iv 1000 Ml (Sodium Chloride 0.9%) (04/12/22 13:15) Fentanyl Inj (Sublimaze Injection) (04/12/22 13:15) Ns Iv 1000 Ml (Sodium Chloride 0.9%) (04/12/22 14:00) Ct Angio Chest/Abd W (04/12/22 13:57) Iohexol Injection (Omnipaque 350 Mg/Ml 1 (04/12/22 14:30) Received Contrast (Hold Metformin- Contr (04/12/22 14:30) Sodium Chloride Flush (Catheter Flush Sy (04/12/22 14:30) Ns (Ivpb) (Sodium Chloride 0.9% Ivpb Bag (04/12/22 14:30) Medications Given in ED Current Medications Medications Dose Ordered Sig/Diana Route Start Time Stop Time Status Last Admin Dose Admin Fentanyl Citrate 25 mcg ONCE ONCE IVP 04/12/22 13:15 04/12/22 13:16 DC 04/12/22 13:21 25 MCG Iohexol 100 ml ONCE ONCE IV 04/12/22 14:30 04/12/22 14:31 DC 04/12/22 14:24 100 ML Sodium Chloride 10 ml NEEDED PRN IV 04/12/22 14:30 04/12/22 14:24 10 ML Sodium Chloride 100 ml ONCE ONCE IV 04/12/22 14:30 04/12/22 14:31 DC 04/12/22 14:24 90 ML Vital Signs/I&O 04/12/22 04/12/22 12:48 12:48 Temp 37.1 Pulse 67 Resp 14 B/P (MAP) 129/80 (96) Pulse Ox 95 O2 Delivery Room Air Room Air Capillary Refill : Progress Note #1: Time: 14:01 Progress Note Had a discussion with the patient regarding monoclonal antibody therapy. I advised her of the emergency use authorization, the risks of allergic reaction immediately and for 24 hours after infusion. I advised her that she would be considered high risk for progression and severity of COVID disease. After talking to her and her daughter she has opted not to take the monoclonal antibody infusion. I did advise her that she could change her mind about the infusion over the next 5 days if she wanted to. I also spoke with her about her elevated D-dimer, relative hypoxia and her COVID infection. I advised that this would put her at risk for having a blood clot in her lungs. I advised her that the only way to determine if she has this is a CAT scan with IV dye. I recommended that we proceed with this to rule that out and also go ahead and scan her abdomen while we are giving her dye to evaluate the AAA as she is having a mild to moderate amount of low back pain. She is not having abdominal pain. Her vital signs are otherwise stable. She is not tachycardic but is on a beta-mariah, not hypotensive. I do not suspect she is having any issues with her aneurysm but we can conserve dye with doing the scan for both at this time as she is having follow-up with Dr. Huntley in about a month regarding the AAA anyway. She will be given a second liter of IV fluids after the scan to help recover her kidneys. I advised her of the risk to her kidneys and both she and her daughter would like to proceed. At this point I think she can be discharged to home there are no clinical or objective findings to warrant admission to the hospital at this time. I did not give her steroids as she is not below 90% on room air. Conservative therapy, fluids, Tylenol for headache and body aches. Return precautions provided. Progress Note #2: Time: 16:02 Progress Note Discussed with Dr. CHA who is on-call for Dr. Jackson. We both agree that she should be started on a little Eliquis until she can follow-up with Dr. Jackson. The bolus timing for the CT angio of the chest was off so pulmonary embolism is not excluded. Patient remained stable, awake alert and perky. She is not requiring oxygen supplementation at this time. I am going to send a prescription for Eliquis to her [facility] pharmacy. I have given her strict return precautions. She verbalized understanding. All questions are sought and answered. Diagnostic Imaging Diagonstic Imaging: Xray Plain Films/CT/US/NM/MRI: chest Comments [facility] [place], [place] NAME: ROSMERY CARLOS [facility] REC#: [id number] PT STATUS: REG ER : 1940 PHYSICIAN: LAURA HATCH MD ADMIT DATE: 04/12/22/ER Draft Date of Exam:04/12/22 CHEST 1 VIEW, AP/PA ONLY INDICATION: COVID symptoms. Cough, headache, weakness, shortness of breath. EXAMINATION: Chest from 04/12/2022. COMPARISON: 01/27/2017. FINDINGS: There is calcified granuloma in the right lung apex. Lungs are clear. No infiltrates, effusions, or pneumothorax. Heart and pulmonary vasculature are normal. IMPRESSION: 1. Chronic changes with no superimposed acute cardiopulmonary process. Dictated on workstation # [id number] Dict: 04/12/22 1325 Trans: 04/12/22 1333 AS6 [id number] Interpreted by: COURT GOMEZ MD Electronically signed by: Diagonstic Imaging: CT Comments [facility]. [place], [place] NAME: BREANNAROSMERY [facility] REC#: [id number] PT STATUS: REG ER : 1940 PHYSICIAN: LAURA HATCH MD ADMIT DATE: 04/12/22/ER Signed Date of Exam:04/12/22 CT ANGIO CHEST/ABD W EXAMINATION: CT of the chest with CT abdomen with contrast from 04/12/2022. TECHNIQUE: After intravenous administration of contrast, thin section axial CT angiography of the abdomen and chest were obtained. 3D MIP reformats were provided. Auto Exposure Controls were utilized during the CT exam to meet ALARA standards for radiation dose reduction. INDICATION: COVID positive. Elevated D-dimer. Low O2 saturation with history of abdominal aortic aneurysm. COMPARISON: 01/05/2021 and 01/16/2015. FINDINGS: There is diffuse atherosclerotic disease throughout the aorta with no aneurysmal dilatation appreciated. There is no dissection. Pulmonary arteries are poorly opacified with an embolus not excluded on this examination. There are calcified lymph nodes within the mediastinum and right hilum. There is no adenopathy. There is no evidence for pericardial or significant pleural effusion. Trace pleural effusions noted at the lung bases. Within the lungs, there is scattered atelectasis, most specifically at the lung bases, especially the right lung base. No infiltrates. No pneumothorax. Calcified granulomata noted in the right upper lung. There is a ddxaf-jm-wuoybzse-sized hiatal hernia. No acute osseous abnormality. IMPRESSION: 1. Atherosclerotic disease within the thoracic aorta with no aneurysmal dilatation or dissection. 2. Evidence of old granulomatous disease. Scattered areas of atelectasis bilaterally, right greater than left. 3. Hiatal hernia. CT ABDOMEN AND PELVIS: There is diffuse fatty infiltration throughout the liver. There is a prominent almost mass-like finding along the course of the IVC as it enters the right atrium. Comparison is made to a CT of the abdomen and pelvis from 11/20/2013. This is stable in appearance and appears to be contiguous with the IVC and likely due to focal dilatation. 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 The spleen is unremarkable. Pancreas is atrophied but otherwise normal. Common duct is dilated measuring approximately 1.2 to 1.3 cm in size. No obstructive process seen on this examination but if symptoms suggest an abnormality in the region, MRCP could provide further characterization as clinically warranted. The adrenal glands are normal. The kidneys are unremarkable with an extrarenal pelvis noted on the right. The thoracic aorta demonstrates aneurysmal dilatation of the infrarenal aorta. This has increased in size from previous measurement of just under 3 cm to a current measurement of 4.4 cm. No evidence for adjacent hemorrhage is seen. There is no dissection. Diffuse atherosclerotic disease is noted. 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 This has also increased in size, previously measuring approximately 1.8 cm. The SMA and celiac artery appear patent. The RAMY is patent. Renal arteries are patent. No ascites. No free air. Fat-containing umbilical hernia noted. Osseous structures are intact. IMPRESSION: 1. 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 2. Aneurysmal dilatation of the infrarenal aorta, increased in size from previous imaging with no dissection or leakage appreciated. 3. Hepatic steatosis. 4. Aneurysmal dilatation of the left common iliac artery, as visualized. Dictated by: Dictated on workstation # [id number] Dict: 04/12/22 1456 Trans: 04/12/22 153 AS6 [id number] Interpreted by: COURT GOMEZ MD Electronically signed by: COURT GOMEZ MD 04/12/221531 Departure Impression Primary Impression: COVID-19 Disposition: 01 HOME, SELF-CARE Condition: Improved Departure-Patient Inst. Decision time for Depature: 14:03 Referrals: FOREIGN JACKSON MD (PCP/Family) Primary Care Physician Patient Instructions: COVID-19 (DC) Add. Discharge Instructions: Drink plenty of fluids to stay well-hydrated. Take extra strength Tylenol 2 tablets every 6 hours as needed for headache and body aches. Monitor your oxygen levels at home, [facility] or any local pharmacy. If you have consistent numbers below 90% please come back to the emergency room for reevaluation. Continue all of your normal daily medications. Call Dr. Jackson's office tomorrow for a follow-up appointment at the end of next week, or Wednesday. You will need to quarantine at home a total of 5 days from yesterday and then after Wednesday you can go out in public wearing a mask. Return to the emergency department for any new, concerning or other emergent complaints. Scripts Apixaban (Eliquis) 2.5 Mg Tablet 2.5 MG PO BID, #30 TAB Prov: LAURA HATCH MD 04/12/22 Copy Copies To 1: FOREIGN JACKSON MD, KATHRYN M MD Apr 12, 2022 12:38
[2022-04-12] MEDS ORDERED: NS IV 1000 ML 1,000 ML IV SCH ×2 (13:15→14:00)
[2022-04-12] MEDS ORDERED: fentaNYL INJ 100 MCG/2 ML AMP IVP ONE (13:15)
[2022-04-12 13:20] LABS: BASOPHILS % (AUTO) 1 % (0-10); EOSINOPHILS % (AUTO) 1 % (0-10); HEMATOCRIT 36 % (35-52); HEMOGLOBIN 11.9 g/dL (11.5-16.0); LYMPHOCYTES # (AUTO) 1.2 10^3/uL (1.0-4.0); LYMPHOCYTES % (AUTO) 32 % (12-44); MEAN CORPUSCULAR HEMOGLOBIN 31 pg (25-34); MEAN CORPUSCULAR HGB CONC 33 g/dL (32-36); MEAN CORPUSCULAR VOLUME 95 fL (80-99); MEAN PLATELET VOLUME 9.4 fL (9.0-12.2); MONOCYTES # (AUTO) 0.6 10^3/uL (0.0-1.0); MONOCYTES % (AUTO) 17 % (0-12); NEUTROPHILS # (AUTO) 1.8 10^3/uL (1.8-7.8); NEUTROPHILS % (AUTO) 49 % (42-75); PLATELET COUNT 181 10^3/uL (130-400); WHITE BLOOD COUNT 3.6 10^3/uL (4.3-11.0)
[2022-04-12 13:30] LABS: ALBUMIN 3.9 GM/DL (3.2-4.5)
[2022-04-12 13:31] LABS: POTASSIUM 3.7 MMOL/L (3.6-5.0)
[2022-04-12 13:33] LABS: TOTAL PROTEIN 6.9 GM/DL (6.4-8.2)
--- NOTE | 2022-04-12 13:34 | Diagnostic Imaging Report ---
INDICATION: COVID symptoms. Cough, headache, weakness, shortness of breath. EXAMINATION: Chest from 04/12/2022. COMPARISON: 01/27/2017. FINDINGS: There is calcified granuloma in the right lung apex. Lungs are clear. No infiltrates, effusions, or pneumothorax. Heart and pulmonary vasculature are normal. IMPRESSION: 1. Chronic changes with no superimposed acute cardiopulmonary process. Dictated by: Dictated on workstation # [id number]
[2022-04-12 13:35] LABS: BILIRUBIN,TOTAL 0.5 MG/DL (0.1-1.0); FIBRIN DEGRADATION PRODUCTS 2.25 UG/ML (0.00-0.49); INR 1.1 (0.8-1.4); PROTHROMBIN TIME PATIENT 14.8 SEC (12.2-14.7)
[2022-04-12 13:37] LABS: CREATININE SERUM 1.23 MG/DL (0.60-1.30)
[2022-04-12] MEDS ORDERED: HOLD METFORMIN - RECEIVED CONTRAST 20 ML VIAL IV SCH (14:30)
[2022-04-12] MEDS ORDERED: IOHEXOL 350 MG/ML 100 ML (OMNIPAQUE 350) VIAL IV ONE (14:30)
[2022-04-12] MEDS ORDERED: NS 100 ML (IVPB) BAG IV ONE (14:30)
[2022-04-12] MEDS ORDERED: CATHETER FLUSH 10 ML SYR IV PRN (14:30)
--- NOTE | 2022-04-12 15:22 | Diagnostic Imaging Report ---
EXAMINATION: CT of the chest with CT abdomen with contrast from 04/12/2022. TECHNIQUE: After intravenous administration of contrast, thin section axial CT angiography of the abdomen and chest were obtained. 3D MIP reformats were provided. Auto Exposure Controls were utilized during the CT exam to meet ALARA standards for radiation dose reduction. INDICATION: COVID positive. Elevated D-dimer. Low O2 saturation with history of abdominal aortic aneurysm. COMPARISON: 01/05/2021 and 01/16/2015. FINDINGS: There is diffuse atherosclerotic disease throughout the aorta with no aneurysmal dilatation appreciated. There is no dissection. Pulmonary arteries are poorly opacified with an embolus not excluded on this examination. There are calcified lymph nodes within the mediastinum and right hilum. There is no adenopathy. There is no evidence for pericardial or significant pleural effusion. Trace pleural effusions noted at the lung bases. Within the lungs, there is scattered atelectasis, most specifically at the lung bases, especially the right lung base. No infiltrates. No pneumothorax. Calcified granulomata noted in the right upper lung. There is a mxjrv-xu-jvgsjqqv-sized hiatal hernia. No acute osseous abnormality. IMPRESSION: 1. Atherosclerotic disease within the thoracic aorta with no aneurysmal dilatation or dissection. 2. Evidence of old granulomatous disease. Scattered areas of atelectasis bilaterally, right greater than left. 3. Hiatal hernia. CT ABDOMEN AND PELVIS: There is diffuse fatty infiltration throughout the liver. There is a prominent almost mass-like finding along the course of the IVC as it enters the right atrium. Comparison is made to a CT of the abdomen and pelvis from 11/20/2013. This is stable in appearance and appears to be contiguous with the IVC and likely due to focal dilatation. 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 The spleen is unremarkable. Pancreas is atrophied but otherwise normal. Common duct is dilated measuring approximately 1.2 to 1.3 cm in size. No obstructive process seen on this examination but if symptoms suggest an abnormality in the region, MRCP could provide further characterization as clinically warranted. The adrenal glands are normal. The kidneys are unremarkable with an extrarenal pelvis noted on the right. The thoracic aorta demonstrates aneurysmal dilatation of the infrarenal aorta. This has increased in size from previous measurement of just under 3 cm to a current measurement of 4.4 cm. No evidence for adjacent hemorrhage is seen. There is no dissection. Diffuse atherosclerotic disease is noted. 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 This has also increased in size, previously measuring approximately 1.8 cm. The SMA and celiac artery appear patent. The RAMY is patent. Renal arteries are patent. No ascites. No free air. Fat-containing umbilical hernia noted. Osseous structures are intact. IMPRESSION: 1. 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 2. Aneurysmal dilatation of the infrarenal aorta, increased in size from previous imaging with no dissection or leakage appreciated. 3. Hepatic steatosis. 4. Aneurysmal dilatation of the left common iliac artery, as visualized. Dictated by: Dictated on workstation # [id number]
[2022-04-12] MEDS ORDERED: APIX2.5T PO (16:05)
[2022-04-12 16:40] VITALS: BP 141/82
== END 2022-04-12 16:40 | disposition home or self-care (01) ==
LOC: EDUNIT# 12:12 → ER 12:14
DX: U07.1 COVID-19 (principal)
CPT/HCPCS: 36415; 71045; 71275; 74175; 80053; 84145; 85025; 85379; 85610; 85730; 86141; 87636

== ENCOUNTER 2022-04-16 13:26 | Observation (INO) | payer MEDICARE ==
[~2022-04-16] VITALS: Ht 167 cm; Wt 82.0 kg
[~2022-04-16 13:26] MED LIST changes: +APIX2.5T PO
[2022-04-16] MEDS ORDERED: NS IV 500 ML 500 ML IV STA (13:52)
[2022-04-16] MEDS ORDERED: ACETAMINOPHEN 325 MG TABLET PO ONE (14:00)
--- NOTE | 2022-04-16 14:09 | ED Cough/URI ---
General Chief Complaint: COVID19 Suspect/Confirmed Stated Complaint: COVID+ DIZZINESS,WEAKNESS Nursing Triage Note: pt is covid +, tested last wednesday with s/s starting wednesdaypt refused infusion at er visit wednesday. cc of weakness and dizziness, states she feels dehydrated, denies chest pain or sob, 97% at triage on room air, on O2 at night Source: patient Exam Limitations: no limitations History of Present Illness Date Seen by Provider: Apr 16, 2022 Time Seen by Provider: 13:31 Initial Comments 81yoF with PMH of COPD on 2L O2 at night, AAA, and HTN coming in due to COVID related symptoms. Started having symptoms on Wednesday and tested positive on Wednesday here in the ER. She was started on Eliquis 2.5mg for 2 weeks. She did not want any COVID medications including Paxlovid or monoclonal antibodies. Since that day she has been feeling worse. Feeling more shaky and generally weak. She states she feels dehydrated. Denies any chest pain, SOB, abd pain, n/v/d, focal weakness, numbness, rash, or any other concerns. Allergies and Home Medications Allergies Coded Allergies: NSAIDS (Non-Steroidal Anti-Inflamma (Verified Allergy, Unknown, 03/21/09) Patient Home Medication List Home Medication List Reviewed: Yes Alendronate Sodium (Alendronate Sodium) 70 Mg Tablet, 70 MG PO DAILY, (Reported) Entered as Reported by: FRANCESCA VILLARREAL on 06/18/21 0841 Apixaban (Eliquis) 2.5 Mg Tablet, 2.5 MG PO BID Prescribed by: LAURA HATCH on 04/12/22 1605 Ezetimibe/Simvastatin (Ezetimibe-Simvastatin 10-20 mg) 1 Each Tablet, 1 EACH PO DAILY, (Reported) Entered as Reported by: SHANTI MANUEL on 11/28/18 1607 Losartan Potassium (Losartan Potassium) 100 Mg Tablet, 100 MG PO DAILY, (Reported) Entered as Reported by: FRANCESCA VILLARREAL on 06/18/21 0841 Metoprolol Succinate (Metoprolol Succinate) 50 Mg Tab.er.24h, 50 MG PO DAILY, (Reported) Entered as Reported by: BABAR MARTINEZ on 01/27/17 1026 Multivitamin (Multivitamins) 1 Each Capsule, 1 EACH PO DAILY, (Reported) Entered as Reported by: SHANTI MANUEL on 11/28/18 1607 Pantoprazole Sodium (Protonix) 40 Mg Tablet.dr, 40 MG PO DAILY Prescribed by: NANCY RODRIGUEZ on 11/29/18 1105 [place] Oil/[place]-3 Fatty Acids ([place] Oil 1,000 mg Softgel) 1 Each Capsule, 1 EACH PO DAILY, (Reported) Entered as Reported by: FRANCESCA VILLARREAL on 06/18/21 0841 Sucralfate (Carafate) 1 Gm Tablet, 1 GM PO QID Prescribed by: NANCY RODRIGUEZ on 06/24/21 0946 Tramadol HCl (Tramadol HCl) 50 Mg Tablet, 50 MG PO BID, (Reported) Entered as Reported by: SHANTI MANUEL on 11/28/18 1607 Vit C/E/Zn/Coppr/Lutein/Zeaxan (Preservision Areds 2 Softgel) 1 Each Capsule, 1 EACH PO DAILY, (Reported) Entered as Reported by: FRANCESCA VILLARREAL on 06/18/21 0841 Review of Systems Review of Systems Constitutional: No fever EENTM: No blurred vision Respiratory: cough Cardiovascular: No chest pain Gastrointestinal: No abdominal pain Genitourinary: no symptoms reported Musculoskeletal: no symptoms reported Skin: no symptoms reported Psychiatric/Neurological: No Symptoms Reported Hematologic/Lymphatic: No Symptoms Reported Immunological/Allergic: no symptoms reported All Other Systems Reviewed Negative Unless Noted: Yes Past Qqjsinu-Fzqfdl-Jfitqg Hx Patient Social History Tobacco Use?: No Substance use?: No Alcohol Use?: No Immunizations Up To Date Tetanus Booster (TDap): Unknown PED Vaccines UTD: Yes First/Initial COVID19 Vaccinat: DECEMBER 2020 Second COVID19 Vaccination Sanjeev: DECEMBER 2020 Third COVID19 Vaccination Date: DECEMBER 2020 Seasonal Allergies Seasonal Allergies: Yes Past Medical History Surgery/Hospitalization HX: COPD, ABDOMINAL ANYERISM Surgeries: Yes (knees replaced bilateral) Hysterectomy, Joint Replacement, Orthopedic, Tonsillectomy, Tubal Ligation Respiratory: Yes (hx. 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 Physical Exam Vital Signs - First Documented 04/16/22 13:47 Temp 36.4 B/P (MAP) 122/87 (99) O2 Delivery Room Air Capillary Refill : Height: 5'6.00" Weight: 167lbs. 6.0oz. 75.244914vh; 27.00 BMI Method:Stated General Appearance: WD/WN, no apparent distress Eyes: Bilateral Eye Normal Inspection HEENT: PERRL/EOMI, normal ENT inspection, pharynx normal Neck: non-tender, full range of motion, supple, normal inspection Respiratory: chest non-tender, lungs clear, normal breath sounds, no respiratory distress, no accessory muscle use Cardiovascular: regular rate, rhythm, no edema, no murmur Gastrointestinal: normal bowel sounds, non tender, soft; No rebound Extremities: normal range of motion, non-tender, normal inspection, no pedal edema, no calf tenderness, normal capillary refill Neurologic/Psychiatric: no motor/sensory deficits, alert, normal mood/affect Skin: normal color, warm/dry Lymphatic: no adenopathy Progress/Results/Core Measures Suspected Sepsis SIRS Temperature: Pulse: Respiratory Rate: Laboratory Tests 04/16/22 14:00: White Blood Count 3.6L Blood Pressure 122 /87 Mean: 99 Laboratory Tests 04/16/22 14:00: Creatinine 1.25, INR Comment 1.1, Platelet Count 187, Total Bilirubin 0.5 Results/Orders Lab Results Laboratory Tests Test 04/16/22 14:00 Range/Units White Blood Count 3.6 L 4.3-11.0 10^3/uL Red Blood Count 4.42 3.80-5.11 10^6/uL Hemoglobin 13.7 11.5-16.0 g/dL Hematocrit 41 35-52 % Mean Corpuscular Volume 93 80-99 fL Mean Corpuscular Hemoglobin 31 25-34 pg Mean Corpuscular Hemoglobin Concent 33 32-36 g/dL Red Cell Distribution Width 14.3 10.0-14.5 % Platelet Count 187 130-400 10^3/uL Mean Platelet Volume 10.0 9.0-12.2 fL Immature Granulocyte % (Auto) 0 % Neutrophils (%) (Auto) 57 42-75 % Lymphocytes (%) (Auto) 31 12-44 % Monocytes (%) (Auto) 8 0-12 % Eosinophils (%) (Auto) 3 0-10 % Basophils (%) (Auto) 0 0-10 % Neutrophils # (Auto) 2.0 1.8-7.8 10^3/uL Lymphocytes # (Auto) 1.1 1.0-4.0 10^3/uL Monocytes # (Auto) 0.3 0.0-1.0 10^3/uL Eosinophils # (Auto) 0.1 0.0-0.3 10^3/uL Basophils # (Auto) 0.0 0.0-0.1 10^3/uL Immature Granulocyte # (Auto) 0.0 0.0-0.1 10^3/uL Prothrombin Time 14.2 12.2-14.7 SEC INR Comment 1.1 0.8-1.4 Activated Partial Thromboplast Time 30 24-35 SEC Sodium Level 138 135-145 MMOL/L Potassium Level 3.2 L 3.6-5.0 MMOL/L Chloride Level 103 98-107 MMOL/L Carbon Dioxide Level 21 21-32 MMOL/L Anion Gap 14 5-14 MMOL/L Blood Urea Nitrogen 18 7-18 MG/DL Creatinine 1.25 0.60-1.30 MG/DL Estimat Glomerular Filtration Rate 43 BUN/Creatinine Ratio 14 Glucose Level 154 H 70-105 MG/DL Calcium Level 9.4 8.5-10.1 MG/DL Corrected Calcium 9.5 8.5-10.1 MG/DL Magnesium Level 1.7 1.6-2.4 MG/DL Total Bilirubin 0.5 0.1-1.0 MG/DL Aspartate Amino Transf (AST/SGOT) 28 5-34 U/L Alanine Aminotransferase (ALT/SGPT) 17 0-55 U/L Alkaline Phosphatase 67 40-136 U/L Troponin I 0.035 H <0.028 NG/ML Total Protein 7.2 6.4-8.2 GM/DL Albumin 3.9 3.2-4.5 GM/DL My Orders Orders - NEMO RAMOS MD Cbc With Automated Diff (04/16/22 13:51) Magnesium (04/16/22 13:51) Chest 1 View, Ap/Pa Only (04/16/22 13:51) Ekg Tracing (04/16/22 13:51) Comprehensive Metabolic Panel (04/16/22 13:51) Protime With Inr (04/16/22 13:51) Partial Thromboplastin Time (04/16/22 13:51) O2 (04/16/22 13:51) Monitor-Rhythm Ecg Trace Only (04/16/22 13:51) Ed Iv/Invasive Line Start (04/16/22 13:51) Troponin I Chris (04/16/22 13:51) Acetaminophen Tablet/Caplet (Tylenol T (04/16/22 14:00) Ns Iv 500 Ml (Sodium Chloride 0.9%) (04/16/22 13:52) Apixaban Tablet (Eliquis Tablet) (04/16/22 15:00) Medications Given in ED Current Medications Medications Dose Ordered Sig/Diana Route Start Time Stop Time Status Last Admin Dose Admin Acetaminophen 650 mg ONCE ONCE PO 04/16/22 14:00 04/16/22 14:01 DC 04/16/22 14:26 650 MG Vital Signs/I&O 04/16/22 04/16/22 13:47 14:26 Temp 36.4 36.4 B/P (MAP) 122/87 (99) O2 Delivery Room Air Capillary Refill : Blood Pressure Mean: 99 Progress Note : Progress Note 81-year-old female with above history coming in due to general weakness in the setting of being COVID-positive. ABCs were intact and vitals were stable on presentation. She does have new onset A. fib on the monitor so an EKG was obtained confirming this. An IV was placed and she was given a bolus of IV fluids given her general weakness and feeling dehydrated. Basic labs obtained including cardiac biomarkers and troponin is slightly positive. She is not having any chest pain at this time and EKG shows no ischemic changes. Is likely a type II NSTEMI in the setting of new demand with her COVID infection. Interestingly, the patient did present to the emergency department roughly 5 days ago and had a CTA which was timed poorly so they are unsure if she had a blood clot. This is still possible. She was given Eliquis 5 mg which she will get twice daily after discussing the case with Dr. Vasquez the noxious weeds and pest inspector on- call. The patient will be admitted to Dr. Jackson for further evaluation and management. Departure Impression Primary Impression: NSTEMI (non-ST elevated myocardial infarction) Additional Impressions: COVID-19 A-fib Qualified Codes: I48.0 - Paroxysmal atrial fibrillation Disposition: ADMITTED INPATIENT Condition: Stable Admissions Decision to Admit Reason: Admit from ER (General) Decision to Admit/Date: Apr 16, 2022 Departure-Patient Inst. Referrals: FOREING JACKSON MD (PCP/Family) Primary Care Physician NEMO RAMOS MD Apr 16, 2022 14:09
[2022-04-16 14:13] LABS: BASOPHILS % (AUTO) 0 % (0-10); EOSINOPHILS # (AUTO) 0.1 10^3/uL (0.0-0.3); EOSINOPHILS % (AUTO) 3 % (0-10); HEMATOCRIT 41 % (35-52); HEMOGLOBIN 13.7 g/dL (11.5-16.0); LYMPHOCYTES # (AUTO) 1.1 10^3/uL (1.0-4.0); LYMPHOCYTES % (AUTO) 31 % (12-44); MEAN CORPUSCULAR HEMOGLOBIN 31 pg (25-34); MEAN CORPUSCULAR HGB CONC 33 g/dL (32-36); MEAN CORPUSCULAR VOLUME 93 fL (80-99); MONOCYTES # (AUTO) 0.3 10^3/uL (0.0-1.0); MONOCYTES % (AUTO) 8 % (0-12); NEUTROPHILS % (AUTO) 57 % (42-75); PLATELET COUNT 187 10^3/uL (130-400); WHITE BLOOD COUNT 3.6 10^3/uL (4.3-11.0)
[2022-04-16 14:24] LABS: ALBUMIN 3.9 GM/DL (3.2-4.5)
[2022-04-16 14:25] LABS: INR 1.1 (0.8-1.4); POTASSIUM 3.2 MMOL/L (3.6-5.0); PROTHROMBIN TIME PATIENT 14.2 SEC (12.2-14.7)
[2022-04-16 14:26] LABS: CALCIUM 9.4 MG/DL (8.5-10.1)
[2022-04-16 14:27] LABS: TOTAL PROTEIN 7.2 GM/DL (6.4-8.2)
[2022-04-16 14:29] LABS: BILIRUBIN,TOTAL 0.5 MG/DL (0.1-1.0)
[2022-04-16 14:31] LABS: CREATININE SERUM 1.25 MG/DL (0.60-1.30)
[2022-04-16 14:34] LABS: MAGNESIUM 1.7 MG/DL (1.6-2.4)
--- NOTE | 2022-04-16 14:44 | Diagnostic Imaging Report ---
CLINICAL INDICATIONS: Patient is COVID positive. Patient with chest pain. EXAM: Portable chest x-ray upright view. COMPARISON: Chest x-ray dated 04/12/2022. FINDINGS: Lungs/pleura: Stable increased lung markings involving both lungs most pronounced in the lung bases. Stable calcified granuloma in the right lung apex. There is no interval lung infiltrate. There is no pneumothorax. There is no pleural effusion. Mediastinum: Unremarkable. Pulmonary vasculature: Unremarkable. Heart: Unremarkable. Bones/extrathoracic soft tissue: Unremarkable. IMPRESSION: Stable chest x-ray exam with no interval radiographic evidence of acute cardiopulmonary process. Dictated by: Dictated on workstation # [id number]
[2022-04-16] MEDS ORDERED: APIXABAN 5 MG (ELIQUIS) TABLET PO ONE (15:00)
[2022-04-16 16:07] VITALS: BP 118/73
[2022-04-16] MEDS ORDERED: ACETAMINOPHEN 500 MG TAB (TYLENOL) PO PRN (16:15)
[2022-04-16] MEDS ORDERED: CATHETER FLUSH 10 ML SYR IVP PRN (16:15)
[2022-04-16] MEDS ORDERED: ONDANSETRON 4 MG/2 ML (SDV) Z0FRAN IV PRN (16:15)
[2022-04-16 16:33] VITALS: BP 118/73
[2022-04-16] MEDS ORDERED: RT-ALBUTEROL/IPRATROPIUM 3 ML (DUONEB) VIAL INH PRN (16:45)
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
[2022-04-16 19:32] VITALS: BP 129/79
[2022-04-16] MEDS: APIXABAN 5 MG (ELIQUIS) TABLET PO SCH (20:48)
[2022-04-16] MEDS: CATHETER FLUSH 10 ML SYR IVP SCH (20:48)
[2022-04-16] MEDS ORDERED: KCL 20 MEQ TAB (K-DUR) PO ONE (21:45)
[2022-04-16 23:47] VITALS: BP 151/90
[2022-04-17 03:47] VITALS: BP 158/87
[2022-04-17] MEDS: CATHETER FLUSH 10 ML SYR IVP SCH (05:26)
[2022-04-17 06:15] LABS: HEMATOCRIT 35 % (35-52); HEMOGLOBIN 11.8 g/dL (11.5-16.0); MEAN CORPUSCULAR HEMOGLOBIN 31 pg (25-34); MEAN CORPUSCULAR HGB CONC 33 g/dL (32-36); MEAN CORPUSCULAR VOLUME 93 fL (80-99); PLATELET COUNT 169 10^3/uL (130-400); WHITE BLOOD COUNT 3.2 10^3/uL (4.3-11.0)
--- NOTE | 2022-04-17 06:35 | Progress Note ---
Subjective Subjective Date Seen by Provider: Apr 17, 2022 Eva Boyd is an 81y/o F being seen today for Covid-19 and atrial fibrillation. Pt was awake and alert when I entered the room this morning. She states that she has had a few episodes of palpitations but no chest pain. Denies any SOB but a cough is present. Says that she is doing alright. Denies any other concerns when asked Review of Systems General: No Chills, No Other (fever) HEENT: No Head Aches, No Visual Changes Pulmonary: No Dyspnea; Cough Cardiovascular: Palpitations; No: Chest Pain Gastrointestinal: No: Nausea, Vomiting, Abdominal Pain Genitourinary: No Dysuria, No Frequency Musculoskeletal: No: neck pain, back pain Neurological: No: Weakness, Numbness All Other Systems Reviewed All Other Systems Reviewed: Yes Objective Exam Vital Signs Vital Signs Date Time Temp Pulse Resp B/P (MAP) Pulse Ox O2 Delivery O2 Flow Rate FiO2 04/17/22 03:47 36.3 66 18 158/87 (110) 96 Room Air 04/17/22 01:00 63 04/16/22 23:47 36.3 69 18 151/90 (110) 95 Room Air 04/16/22 20:00 Room Air 04/16/22 19:32 36.8 79 18 129/79 (96) 94 Room Air 04/16/22 19:00 70 04/16/22 18:00 Room Air 04/16/22 16:57 88 04/16/22 16:33 36.4 82 98 21 04/16/22 16:07 36.4 82 20 118/73 (88) 98 Room Air 04/16/22 16:05 36.5 77 20 121/83 96 Room Air 04/16/22 14:26 36.4 04/16/22 13:47 36.4 122/87 (99) Room Air I & O 04/17/22 06:59 Intake Total 1540 ml Balance 1540 ml General Appearance: No Apparent Distress, WD/WN Eyes: Bilateral Eye Normal Inspection HEENT: PERRL/EOMI; No Photophobia Neck: Full Range of Motion, Non Tender, Supple Respiratory: Chest Non Tender, Lungs Clear, Normal Breath Sounds, No Accessory Muscle Use Cardiovascular: Regular Rate, Rhythm, Normal Peripheral Pulses Gastrointestinal: Normal Bowel Sounds, Non Tender, Soft Rectal: Deferred Extremity: Normal Capillary Refill, Non Tender, No Calf Tenderness, No Pedal Edema Neurologic/Psychiatric: Alert, Oriented x3, Normal Mood/Affect Skin: Normal Color, Warm/Dry Lymphatic: No Adenopathy Results Lab Laboratory Tests 04/16/22 14:00: White Blood Count 3.6L, Red Blood Count 4.42, Hemoglobin 13.7, Hematocrit 41, Mean Corpuscular Volume 93, Mean Corpuscular Hemoglobin 31, Mean Corpuscular Hemoglobin Concent 33, Red Cell Distribution Width 14.3, Platelet Count 187, Mean Platelet Volume 10.0, Immature Granulocyte % (Auto) 0, Neutrophils (%) (Auto) 57, Lymphocytes (%) (Auto) 31, Monocytes (%) (Auto) 8, Eosinophils (%) (Auto) 3, Basophils (%) (Auto) 0, Neutrophils # (Auto) 2.0, Lymphocytes # (Auto) 1.1, Monocytes # (Auto) 0.3, Eosinophils # (Auto) 0.1, Basophils # (Auto) 0.0, Immature Granulocyte # (Auto) 0.0, Prothrombin Time 14.2, INR Comment 1.1, Activated Partial Thromboplast Time 30, Sodium Level 138, Potassium Level 3.2L, Chloride Level 103, Carbon Dioxide Level 21, Anion Gap 14, Blood Urea Nitrogen 18, Creatinine 1.25, Estimat Glomerular Filtration Rate 43, BUN/Creatinine Ratio 14, Glucose Level 154H, Calcium Level 9.4, Corrected Calcium 9.5, Magnesium Level 1.7, Total Bilirubin 0.5, Aspartate Amino Transf (AST/SGOT) 28, Alanine Aminotransferase (ALT/SGPT) 17, Alkaline Phosphatase 67, Troponin I 0.035H, Total Protein 7.2, Albumin 3.9 04/16/22 16:55: Troponin I < 0.028 04/17/22 05:45: White Blood Count 3.2L, Red Blood Count 3.79L, Hemoglobin 11.8, Hematocrit 35, Mean Corpuscular Volume 93, Mean Corpuscular Hemoglobin 31, Mean Corpuscular Hemoglobin Concent 33, Red Cell Distribution Width 14.2, Platelet Count 169, Mean Platelet Volume 10.0 Assessment/Plan Assessment/Plan Assessment and Plan Covid 19 Pneumonia Acute onset Atrial Fibrillation Elevated Troponin Elevated D-Dimer Hypertension Hypokalemia Covid 19 Pneumonia - improved symptoms - supportive care at this point, no need for acute treatment since she has minor symptoms. Acute onset Atrial Fibrillation - pt started on Eliquis - rate controlled at this time - consult was placed to Dr. Vasquez in the ER. -echo has been ordered Elevated Troponin -latest troponin yesterday afternoon had returned to the normal range Elevated D-Dimer Hypertension - monitor pressure - can restart losartan today, HR only in the 60s this AM, hold off on restarting metoprolol Hypokalemia - replenish orally dvt prophylaxis with eliquis gi prophylaxis with ppi therapy SOSA DONAHUE Apr 17, 2022 06:35
[2022-04-17 06:36] LABS: ALBUMIN 3.6 GM/DL (3.2-4.5); BILIRUBIN,TOTAL 0.5 MG/DL (0.1-1.0); CREATININE SERUM 0.91 MG/DL (0.60-1.30); MAGNESIUM 1.7 MG/DL (1.6-2.4); POTASSIUM 3.6 MMOL/L (3.6-5.0); TOTAL PROTEIN 6.3 GM/DL (6.4-8.2)
[2022-04-17 07:25] VITALS: BP 157/94
[2022-04-17] MEDS: APIXABAN 5 MG (ELIQUIS) TABLET PO SCH (09:30)
[2022-04-17] MEDS ORDERED: APIX5TAB PO (10:58)
--- NOTE | 2022-04-17 11:00 | Discharge Inst-Simple/Standard ---
Discharge Inst-Standard Reconcile Patient Problems Problems Reviewed?: Yes Discharge Medications New, Converted or Re-Newed RX: Transmitted to Pharmacy Patient Instructions/Follow Up Plan of Care/Instructions/FU: pt to follow up with [facility] Activity as Tolerated: No (homebound until out of quarantine) Discharge Diet: Regular Diet Health Concerns: hypertension dizziness afib weakness Return to [facility] For: any concern for worsening symptoms of covid, or lifethreatining illness or injury Medication List: Active Scripts Active Eliquis (Apixaban) 5 Mg Tablet 5 Mg PO BID Carafate (Sucralfate) 1 Gm Tablet 1 Gm PO QID Protonix (Pantoprazole Sodium) 40 Mg Tablet.dr 40 Mg PO DAILY Reported [place] Oil 1,000 mg Softgel ([place] Oil/[place]-3 Fatty Acids) 1 Each Capsule 1 Each PO DAILY Preservision Areds 2 Softgel (Vit C/E/Zn/Coppr/Lutein/Zeaxan) 1 Each Capsule 1 Each PO DAILY Losartan Potassium 100 Mg Tablet 100 Mg PO DAILY Alendronate Sodium 70 Mg Tablet 70 Mg PO DAILY Tramadol HCl 50 Mg Tablet 50 Mg PO BID Ezetimibe-Simvastatin 10-20 mg (Ezetimibe/Simvastatin) 1 Each Tablet 1 Each PO DAILY Multivitamins (Multivitamin) 1 Each Capsule 1 Each PO DAILY Metoprolol Succinate 50 Mg Tab.er.24h 50 Mg PO DAILY Lab results: Laboratory Tests Test 04/16/22 14:00 04/16/22 16:55 04/17/22 05:45 Range/Units White Blood Count 3.6 L 3.2 L 4.3-11.0 10^3/uL Red Blood Count 4.42 3.79 L 3.80-5.11 10^6/uL Hemoglobin 13.7 11.8 11.5-16.0 g/dL Hematocrit 41 35 35-52 % Mean Corpuscular Volume 93 93 80-99 fL Mean Corpuscular Hemoglobin 31 31 25-34 pg Mean Corpuscular Hemoglobin Concent 33 33 32-36 g/dL Red Cell Distribution Width 14.3 14.2 10.0-14.5 % Platelet Count 187 169 130-400 10^3/uL Mean Platelet Volume 10.0 10.0 9.0-12.2 fL Immature Granulocyte % (Auto) 0 % Neutrophils (%) (Auto) 57 42-75 % Lymphocytes (%) (Auto) 31 12-44 % Monocytes (%) (Auto) 8 0-12 % Eosinophils (%) (Auto) 3 0-10 % Basophils (%) (Auto) 0 0-10 % Neutrophils # (Auto) 2.0 1.8-7.8 10^3/uL Lymphocytes # (Auto) 1.1 1.0-4.0 10^3/uL Monocytes # (Auto) 0.3 0.0-1.0 10^3/uL Eosinophils # (Auto) 0.1 0.0-0.3 10^3/uL Basophils # (Auto) 0.0 0.0-0.1 10^3/uL Immature Granulocyte # (Auto) 0.0 0.0-0.1 10^3/uL Prothrombin Time 14.2 12.2-14.7 SEC INR Comment 1.1 0.8-1.4 Activated Partial Thromboplast Time 30 24-35 SEC Sodium Level 138 143 135-145 MMOL/L Potassium Level 3.2 L 3.6 3.6-5.0 MMOL/L Chloride Level 103 108 H 98-107 MMOL/L Carbon Dioxide Level 21 21 21-32 MMOL/L Anion Gap 14 14 5-14 MMOL/L Blood Urea Nitrogen 18 14 7-18 MG/DL Creatinine 1.25 0.91 0.60-1.30 MG/DL Estimat Glomerular Filtration Rate 43 63 BUN/Creatinine Ratio 14 15 Glucose Level 154 H 105 70-105 MG/DL Calcium Level 9.4 9.0 8.5-10.1 MG/DL Corrected Calcium 9.5 9.3 8.5-10.1 MG/DL Magnesium Level 1.7 1.7 1.6-2.4 MG/DL Total Bilirubin 0.5 0.5 0.1-1.0 MG/DL Aspartate Amino Transf (AST/SGOT) 28 23 5-34 U/L Alanine Aminotransferase (ALT/SGPT) 17 18 0-55 U/L Alkaline Phosphatase 67 62 40-136 U/L Troponin I 0.035 H < 0.028 <0.028 NG/ML Total Protein 7.2 6.3 L 6.4-8.2 GM/DL Albumin 3.9 3.6 3.2-4.5 GM/DL My orders: Orders - FOREIGN MARS MD Sodium Chloride Flush (Catheter Flush Sy (04/16/22 16:15) Sodium Chloride Flush (Catheter Flush Sy (04/16/22 22:00) Apixaban Tablet (Eliquis Tablet) (04/16/22 21:00) Acetaminophen Tablet (Tylenol Tablet) (04/16/22 16:15) Ondansetron Injection (Zofran Injectio (04/16/22 16:15) Admission Order(Inpt,Obs,Sdc) (04/16/22 16:06) Code/Resuscitation (04/16/22 16:06) Ambulate 08,12,20 (04/16/22 16:06) Sequential Compression Device ONCE (04/16/22 16:06) Initiate Admission Nursing Pro .admission (04/16/22 16:06) Isolation Central Supply Req (04/16/22 16:06) Consult Cardiology (04/16/22 16:06) Initiate Admission Nursing Pro .admission (04/16/22 16:06) Mat Initiate Protocol (04/16/22 16:06) Telemetry (04/16/22 16:06) Telemetry Nursing Assessment ( (04/16/22 16:06) Vital Signs: Per Unit Policy ( 08,16,00 (04/16/22 16:06) General/Regular (04/16/22 Dinner) Oxygen-Administer 07,19 (04/16/22 16:06) Oxygen Delivery Set Up (04/16/22 16:06) Troponin I Chris (04/16/22 17:00) Albuterol/Ipra Inhalation Soln (Duoneb I (04/16/22 16:45) Svn Small Volume Nebulizer (04/16/22 16:35) Potassium Chloride (Tablet) (K Dur Table (04/16/22 21:45) Cbc No Diff (04/17/22 05:00) Comprehensive Metabolic Panel (04/17/22 05:00) Magnesium (04/17/22 05:00) Pending Discharge Order (04/17/22 10:54) FOREIGN MARS MD Apr 17, 2022 11:00
[2022-04-17 11:25] VITALS: BP 164/86
--- NOTE | 2022-04-17 13:00 | Consultation-Cardiology ---
HPI-Cardiology Cardiology Consultation: Date of Consultation 04/17/22 Date of Admission 04/16/22 Attending Physician Foreign Jackson MD Admitting Physician Admitting Physician: Foreign Jackson MD Attending Physician: Foreign Jackson MD Consulting Physician MONIQUE BENZ JR, MD HPI: Time Seen by a Provider: 13:12 Chief Complaint: REASON FOR CONSULTATION: Atrial fibrillation. I had the pleasure of seeing Eva on the medical/surgical unit at [facility] in [place], [place] today. She normally follows with one of my partners, Dr. Huntley. She is extremely hard of hearing and it was very difficult to get her to understand any of my questions. I have obtained the majority of the history from my conversation with the emergency room physician at the time of admission as well as the medical records. She had presented to the emergency room earlier this week with some dyspnea and weakness. She was diagnosed with COVID infection at that time and discharged home. However, yesterday she came back to the emergency room with ongoing shortness of breath, weakness and "liane iness". At that time, she was found to have atrial fibrillation and was admitted to the hospital for further treatment and evaluation. The patient was seen earlier today by her regular primary provider who plans to discharge the patient to home today. According to the patient's nurse, the patient has been doing reasonably well and not complaining of any significant chest discomfort or palpitations. Soon after the patient was admitted to the floor, she converted to sinus rhythm. The patient has chronic dyspnea on exertion related to her underlying chronic obstructive pulmonary disease. I was not able to obtain any additional history from the patient due to her severe hearing loss. Certain portions of this document may have been dictated utilizing voice recognition technology. Inherent to this technology, typographical and grammatical errors may exist. As much as I am diligent to identify and correct these mistakes, some errors may remain in the document. Review of Systems-Cardiology Review of Systems Other comments Not obtainable due to severe hearing loss. All Other Systems Reviewed Negative Unless Noted: Yes VAS-Ddmbld-Qumpsf Hx Patient Social History Marrital Status: Living Status: lives in [place] Employed/Student: retired Smoking Status: Never a Smoker 2nd Hand Smoke Exposure: Yes Alcohol Use?: No Pt feels they are or have been: No Immunizations Up To Date Tetanus Booster (TDap): Unknown Date of Pneumonia Vaccine: Jul 08, 2019 Date of Influenza Vaccine: Jul 03, 2019 Past Medical History PMH As described under Assessment. Family Medical History Family Medical History: Not obtainable due to severe hearing loss. Family History: Patient reports no known family medical history. Allergies and Home Medications Allergies Coded Allergies: NSAIDS (Non-Steroidal Anti-Inflamma (Verified Allergy, Unknown, 03/21/09) Patient Home Medication List Home Medication List Reviewed: Yes Alendronate Sodium (Alendronate Sodium) 70 Mg Tablet, 70 MG PO DAILY, (Reported) Entered as Reported by: FRANCESCA VILLARREAL on 06/18/21 0841 Last Action: Held Apixaban (Eliquis) 5 Mg Tablet, 5 MG PO BID Prescribed by: FOREIGN JACKSON on 04/17/22 1058 Ezetimibe/Simvastatin (Ezetimibe-Simvastatin 10-20 mg) 1 Each Tablet, 1 EACH PO DAILY, (Reported) Entered as Reported by: SHANTI MANUEL on 11/28/181606 Last Action: Held Metoprolol Succinate (Metoprolol Succinate) 50 Mg Tab.er.24h, 50 MG PO DAILY, (Reported) Entered as Reported by: BABAR MARTINEZ on 01/27/17 1026 Last Action: Reviewed Multivitamin (Multivitamins) 1 Each Capsule, 1 EACH PO DAILY, (Reported) Entered as Reported by: SHANTI MANUEL on 11/28/181606 Last Action: Held Pantoprazole Sodium (Protonix) 40 Mg Tablet.dr, 40 MG PO DAILY Prescribed by: NANCY RODRIGUEZ on 11/29/18 1105 Last Action: Reviewed [place] Oil/[place]-3 Fatty Acids ([place] Oil 1,000 mg Softgel) 1 Each Capsule, 1 EACH PO DAILY, (Reported) Entered as Reported by: FRANCESCA VILLARREAL on 06/18/21 0841 Last Action: Held Sucralfate (Carafate) 1 Gm Tablet, 1 GM PO QID Prescribed by: NANCY RODRIGUEZ on 06/24/21 0946 Last Action: Held Tramadol HCl (Tramadol HCl) 50 Mg Tablet, 50 MG PO BID, (Reported) Entered as Reported by: SHANTI MANUEL on 11/28/18 160 Last Action: Held Vit C/E/Zn/Coppr/Lutein/Zeaxan (Preservision Areds 2 Softgel) 1 Each Capsule, 1 EACH PO DAILY, (Reported) Entered as Reported by: FRANCESCA VILLARREAL on 06/18/21840 Last Action: Held Discontinued Medications Apixaban (Eliquis) 2.5 Mg Tablet, 2.5 MG PO BID Prescribed by: LAURA HATCH on 04/12/22 1605 Last Action: Discontinued Losartan Potassium (Losartan Potassium) 100 Mg Tablet, 100 MG PO DAILY, (Reported) Entered as Reported by: FRANCESCA VILLARREAL on 06/18/21840 Last Action: Held Exam Vital Signs Vital Signs Date Time Temp Pulse Resp B/P (MAP) Pulse Ox O2 Delivery O2 Flow Rate FiO2 04/17/22 14:16 36.4 71 16 164/86 96 Room Air 04/16/22 16:33 21 Physical Exam Due to the patient's COVID status, I viewed the patient from the doorway. She is extremely hard of hearing. General: The patient is not on a ventilator. HENT: Normocephalic. Atraumatic. Skin: There is no pallor. Neurologic: Cranial nerves III through XII grossly intact. Moving all 4 extremities. Psychiatric: Appears cooperative. Labs Laboratory Tests Test 04/16/22 16:55 04/17/22 05:45 Range/Units Troponin I < 0.028 <0.028 NG/ML White Blood Count 3.2 L 4.3-11.0 10^3/uL Red Blood Count 3.79 L 3.80-5.11 10^6/uL Hemoglobin 11.8 11.5-16.0 g/dL Hematocrit 35 35-52 % Mean Corpuscular Volume 93 80-99 fL Mean Corpuscular Hemoglobin 31 25-34 pg Mean Corpuscular Hemoglobin Concent 33 32-36 g/dL Red Cell Distribution Width 14.2 10.0-14.5 % Platelet Count 169 130-400 10^3/uL Mean Platelet Volume 10.0 9.0-12.2 fL Sodium Level 143 135-145 MMOL/L Potassium Level 3.6 3.6-5.0 MMOL/L Chloride Level 108 H 98-107 MMOL/L Carbon Dioxide Level 21 21-32 MMOL/L Anion Gap 14 5-14 MMOL/L Blood Urea Nitrogen 14 7-18 MG/DL Creatinine 0.91 0.60-1.30 MG/DL Estimat Glomerular Filtration Rate 63 BUN/Creatinine Ratio 15 Glucose Level 105 70-105 MG/DL Calcium Level 9.0 8.5-10.1 MG/DL Corrected Calcium 9.3 8.5-10.1 MG/DL Magnesium Level 1.7 1.6-2.4 MG/DL Total Bilirubin 0.5 0.1-1.0 MG/DL Aspartate Amino Transf (AST/SGOT) 23 5-34 U/L Alanine Aminotransferase (ALT/SGPT) 18 0-55 U/L Alkaline Phosphatase 62 40-136 U/L Total Protein 6.3 L 6.4-8.2 GM/DL Albumin 3.6 3.2-4.5 GM/DL Radiology ECHOCARDIOGRAM (04/17/2022): 1. Left ventricle: The cavity size is normal. There is mild concentric hypertrophy. Systolic function is normal. The estimated ejection fraction is 55- 60%. There were no regional wall motion abnormalities identified. Left ventricular diastolic function parameters are normal. 2. Left atrium: The left atrium is mildly dilated with a volume index of 41 mL/m. 3. Right atrium: The right atrium is mildly dilated with an area of 22 cm. 4. Mitral valve: There is mild regurgitation. 5. Aortic valve: There is mild aortic valve sclerosis. 6. Tricuspid valve: There is mild tricuspid regurgitation. 7. Pulmonary arteries: The estimated pulmonary artery systolic pressure is 31 mmHg assuming a right atrial pressure of 5 mmHg. 8. When compared to the report of the study performed on 08/05/2020, there are no significant changes. ECG Impression ECG Comment Electrocardiogram from the emergency room on 04/16 shows atrial fibrillation with a ventricular rate of 77 bpm with early transition and nonspecific ST-T wave changes. Electrocardiogram from this morning on 04/17 shows sinus rhythm with early transition and nonspecific ST-T wave changes. Diagnosis/Problems Diagnosis/Problems (1) Paroxysmal atrial fibrillation Assessment & Plan: She had atrial fibrillation in the emergency room but by the time she was admitted to the floor she had converted to sinus rhythm and remains in sinus rhythm overnight. Her echocardiogram does show biatrial dilatation which suggest that she may be having some intermittent atrial fibrillation at home. I recommend she continue metoprolol which she was already taking at home for hypertension. She has been started on apixaban for stroke prophylaxis. She will need to follow-up with Dr. Huntley following discharge. From a cardiac standpoint, she can be discharged to home. (2) Troponin level elevated Assessment & Plan: She had minimal elevation of the troponin level at the time of discharge which later became undetectable. She may have had a very tiny non- ST elevation myocardial infarction due to supply/demand mismatch from tachycardia caused by the atrial fibrillation. She is not having any angina. Beta-mariah and statin medication have been resumed. There is no indication for an ischemic evaluation at this time. Since she will be on apixaban, we may want to consider holding aspirin especially in light of her advanced age. This will help reduce the risk of hemorrhagic side effects from dual pathway inhibition. (3) Coronary artery disease without angina pectoris Assessment & Plan: As above, she is not having any angina. She had a previous catheterization that reportedly showed mild disease and she has not required revascularization. She should continue on metoprolol and statin medication. As above, no aspirin since she will be taking apixaban for the newly diagnosed atrial fibrillation. (4) Primary hypertension Assessment & Plan: Resume outpatient antihypertensive medication. (5) Mixed hyperlipidemia Assessment & Plan: Continue statin medication. (6) Abdominal aortic aneurysm Assessment & Plan: She reportedly has an abdominal aortic aneurysm which is being followed by Dr. Huntley. MONIQUE BENZ JR, MD Apr 17, 2022 13:00
[2022-04-17 14:16] VITALS: BP 164/86
== END 2022-04-17 13:35 | disposition home or self-care (01) ==
LOC: EDUNIT# 13:26 → ER 13:28 → 4TH 14:53 → UNDOADMOB 14:53 → 4TH 16:05 → UNDODISOB 04-17 14:18
PROVIDERS: ADMIT Family Medicine; ATTEND Family Medicine
DX: U07.1 COVID-19 (principal); I48.0 Paroxysmal atrial fibrillation; R77.8 Other specified abnormalities of plasma proteins; I10 Essential (primary) hypertension; E87.6 Hypokalemia; I25.10 Atherosclerotic heart disease of native coronary artery without angina pectoris; E78.2 Mixed hyperlipidemia; I71.4 Abdominal aortic aneurysm, without rupture; I21.4 Non-ST elevation (NSTEMI) myocardial infarction
CPT/HCPCS: 36415; 71045; 80053; 83735; 84484; 85025; 85027; 85610; 85730; 93005; 93041; 93306; 96375; G0378

== ENCOUNTER → 2022-10-26 | Outpatient (CLI) | payer MEDICARE ==
[~2022-10-26] VITALS: Ht 167 cm; Wt 80.0 kg
[~2022-10-26] MED LIST changes: +ALBU8.5H6 IH; +APIX5TAB PO; +REGADENOSON 0.4 MG/5 ML SYR (LEXISCAN) IV ONE; -RT-ALBUINH IH
[2022-10-26] MEDS: CATHETER FLUSH 10 ML SYR IVP PRN ×2 (10:57→11:42)
[2022-10-26 11:45] VITALS: BP 142/87
--- NOTE | 2022-10-26 16:25 | Cardiology Stress Test Report ---
Stress Test Report Date of Procedure/Referring: Date of Procedure: Oct 26, 2022 PCP Foreign Jackson MD Admitting Physician Admitting Physician: Attending Physician: Evita Myrick Indications: CP Baseline Heart Rate: 71 Baseline Blood Pressure: Blood Pressure Systolic: 142 Blood Pressure Diastolic: 87 Baseline Vitals Vital Signs Date Time Temp Pulse Resp B/P (MAP) Pulse Ox O2 Delivery O2 Flow Rate FiO2 10/26/22 11:45 78 20 142/87 (105) 98 Room Air Baseline EKG: Baseline EKG: NSR Summary After explaining the procedure to the patient, she signed a consent and then brought to the stress nuclear laboratory. Patient received 0.4 mg Lexiscan for stress test, ECG, heart rate and blood pressure were monitored continuously. Resting and stress dose of radio tracer were injected, imaging was acquired and reviewed in short axis, horizontal long axis and vertical long axis views. TID: 1.01 SSS: 13 SDS: 13 EF: 79 1. Patient tolerated Lexiscan well 2. Breast attenuation with motion artifact and reversible ischemia involving the mid to apical anterior septum and mid to apical anterior lateral wall 3. Normal left ventricular size, ejection fraction 79% Copy Copies To 1: FOREIGN JACKSON MD, BASHAR J MD Oct 26, 2022 16:24
== END ==
LOC: CARD 10:19
PROVIDERS: ATTEND Physician Assistant
DX: I25.89 Other forms of chronic ischemic heart disease (principal); N64.89 Other specified disorders of breast
CPT/HCPCS: 78452; 93017; A9502

== ENCOUNTER → 2022-11-05 | Outpatient (CLI) | payer MEDICARE ==
[~2022-11-05] MED LIST changes: -REGADENOSON 0.4 MG/5 ML SYR (LEXISCAN) IV ONE
--- NOTE | 2022-11-05 09:22 | Diagnostic Imaging Report ---
Indication: Aortic aneurysm screening, hypertension Proximal abdominal aorta measures 1.9 x 2.4 cm. Mid abdominal aorta measures 2.4 x 2.8 cm. Distal abdominal aorta measures 4.4 x 5.2 cm. Right iliac artery measures 1.1 x 1.9 cm. Left iliac measures 1.8 x 2.9 cm. IMPRESSION: There is an infrarenal abdominal aortic aneurysm measuring 5.2 cm in diameter and 6.4 cm in length and extending into the left common iliac artery. Dictated by: Dictated on workstation # [id number]
== END ==
LOC: RAD 08:18
PROVIDERS: ATTEND Physician Assistant
DX: I71.43 Infrarenal abdominal aortic aneurysm, without rupture (principal); I10 Essential (primary) hypertension; I25.10 Atherosclerotic heart disease of native coronary artery without angina pectoris; I48.0 Paroxysmal atrial fibrillation
CPT/HCPCS: 76775; C8929 ×2; 93306

== ENCOUNTER 2022-11-11 11:25 | Day surgery (SDC) | payer MEDICARE ==
[2022-11-11] VITALS (9 sets, daily range): BP systolic 114–173; BP diastolic 69–113
[~2022-11-11] VITALS: Ht 167.6 cm; Wt 80.7 kg
[2022-11-11] MEDS ORDERED: NS IV 1000 ML 1,000 ML ONE (11:39)
[2022-11-11] MEDS ORDERED: LIDOCAINE 1% INJ 20 ML VIAL ONE (11:39)
[2022-11-11] MEDS ORDERED: HEParin (CATH LAB) 2,000 ML IV ONE (11:39)
[2022-11-11] MEDS ORDERED: NS IV 1000 ML 1,000 ML IV ONE (11:45)
[2022-11-11 12:03] LABS: HEMATOCRIT 37 % (35-52); HEMOGLOBIN 12.1 g/dL (11.5-16.0); MEAN CORPUSCULAR HEMOGLOBIN 31 pg (25-34); MEAN CORPUSCULAR HGB CONC 33 g/dL (32-36); MEAN CORPUSCULAR VOLUME 93 fL (80-99); MEAN PLATELET VOLUME 9.5 fL (9.0-12.2); PLATELET COUNT 239 10^3/uL (130-400); WHITE BLOOD COUNT 6.2 10^3/uL (4.3-11.0)
[2022-11-11 12:04] LABS: BILIRUBIN,URINE NEGATIVE (NEGATIVE); CLARITY,URINE CLEAR; COLOR,URINE YELLOW; GLUCOSE, URINE (UA) NEGATIVE (NEGATIVE); KETONES,URINE NEGATIVE (NEGATIVE); LEUKOCYTE ESTERASE ,URINE 2+ (NEGATIVE); NITRITE,URINE NEGATIVE (NEGATIVE); PROTEIN,URINE TRACE (NEGATIVE)
[2022-11-11 12:15] LABS: BACTERIA,URINE FEW /HPF; RENAL EPITHELIAL CELLS,URINE 0-2 /HPF
--- NOTE | 2022-11-11 12:18 | Diagnostic Imaging Report ---
INDICATION: Coronary artery disease. COMPARISON: 04/16/2022. FINDINGS: Lungs are clear. No failure, effusion, or pneumothorax. IMPRESSION: Normal frontal chest. Dictated by: Dictated on workstation # [id number]
[2022-11-11 12:22] LABS: INR 1.2 (0.8-1.4); PROTHROMBIN TIME PATIENT 15.7 SEC (12.2-14.7)
[2022-11-11] MEDS ORDERED: POLY30DR6 OP (12:30)
[2022-11-11] MEDS ORDERED: LOSA25TA41 PO (12:30)
[2022-11-11] MEDS ORDERED: SUCR1TAB PO (12:30)
[2022-11-11] MEDS ORDERED: CALC-250 PO (12:30)
[2022-11-11] MEDS ORDERED: MULT-1136 PO (12:30)
[2022-11-11] MEDS ORDERED: FISH1CAP15 PO (12:30)
[2022-11-11] MEDS ORDERED: MTP25TSR PO (12:30)
[2022-11-11] MEDS ORDERED: PANT40TA52 PO (12:30)
[2022-11-11 12:32] LABS: BILIRUBIN,TOTAL 0.5 MG/DL (0.1-1.0); CALCIUM 9.2 MG/DL (8.5-10.1); CREATININE SERUM 1.01 MG/DL (0.60-1.30); POTASSIUM 3.6 MMOL/L (3.6-5.0); TOTAL PROTEIN 7.6 GM/DL (6.4-8.2)
[2022-11-11] MEDS ORDERED: RIVA20TA PO (12:33)
[2022-11-11] MEDS ORDERED: HEParin 1000 UNIT/ML (10ML VIAL) FOR BOLUS ONE (12:45)
[2022-11-11] MEDS ORDERED: fentaNYL INJ 100 MCG/2 ML AMP ONE (12:45)
[2022-11-11] MEDS ORDERED: VERAPAMIL 5 MG/2 ML (CALAN) VIAL IV ONE (12:45)
[2022-11-11] MEDS ORDERED: MIDAZOLAM 5 MG/5 ML (VERSED) VIAL ONE (12:45)
[2022-11-11] MEDS ORDERED: NITRO DRIP 25000 MCG/D5W 250 ML IV ONE (12:45)
--- NOTE | 2022-11-11 13:21 | Discharge Inst-Post CATH ---
Discharge Inst-CATH/EP Problems Reviewed?: Yes Post Cardiac Cath/EP D/C Inst Follow Up/Plan Appointment with Dr. Huntley's office in 2 to 4 weeks <b>CARDIAC CATH/EP PROCEDURE DISCHARGE INSTRUCTIONS</b> ACTIVITY * Go Home directly and rest. * Limit activity of the leg (or wrist if it was used) for 7 days including aer obics, swimming, jogging, bicycling, etc. * Restrict stair-climbing for 7 days if possible, if not, climb up with your non-cath leg, then bring together on the same step. * Avoid lifting, pushing, pulling or excessive movement of the affected extremi ty for 7 days. * Customary sexual activity may be resumed after 2 days-use caution not to use a position that strains or causes pain to the affected extremity. * No driving for 24 hours. * NO SMOKING. * Avoid straining for bowel movements for 7 days. * Gentle walking on level ground is allowed. * Returning to work will depend on the type of procedure and the results. Your doctor will discuss this with you. CALL YOUR DOCTOR FOR ANY OF THE FOLLOWING: *If bleeding from the puncture site occurs- Apply gentle pressure to site with clean cloth and call your doctor or EMS. * If a knot or lump forms under the skin, increases in size, or causes pain. * If bruising appears to be worsening or moving further down your leg instead of disappearing. * Temperature above 101 F. CARE OF YOUR GROIN INCISION; * Bruising or purple discoloration of the skin near the puncture site is common. * You may shower only, no bathtub bathing for 5 days. Be careful to avoid slipping as your leg may feel stiff. * If a closure device was used on your femoral artery, please see the attached guide regarding care of the device and your leg. * Leave dressing on FOR 24 hours. CARE OF YOUR WRIST INCISION; * Bruising or purple discoloration of the skin near the puncture site is common. * You may shower. * DO NOT submerge wrist. * Leave dressing on FOR 24 hours. KEATON HUNTLEY MD Nov 11, 2022 13:21
[2022-11-11] MEDS ORDERED: NS IV 1000 ML 1,000 ML IV SCH (13:30)
--- NOTE | 2022-11-11 14:13 | Cardiac Cath Report ---
Cardiac Cath Report Physician (s)/Signs And Displays Salesperson (s) Physician KEATON SIDDIQUI MD Pre-Procedure Diagnosis Pre-Procedure Diagnosis: Coronary artery disease Post-Procedure Note Procedure Start Date: Nov 11, 2022 Name of Procedure: Left heart catheterization Aortic arch angiogram Findings/Procedure Note PROCEDURE NOTE: 82-year-old lady with a history of coronary artery disease, had an abnormal stress test, has history of abdominal aortic aneurysm, scheduled for cardiac catheterization possible PTCA and possible abdominal aortic angiogram. After explaining the procedure to the patient, all pros and cons were explained, all questions were answered. The patient signed the consent and then she was placed in the cardiac catheterization laboratory. Groin was prepped in SL fashion local anesthesia was used. Sheath placed in the right radial artery, [place] catheter was advanced to the left ventricular cavity, pressure was measured, pullback LV to aorta was done, engage the right and left coronary system. I was unable to advance the wire in the descending aorta. I placed the catheter in the aortic arch and aortic arch angiogram was done. It appeared that the insertion of the brachiocephalic artery is coming mainly in the ascending aorta which made it impossible to remove the wire and the catheter through the R to the descending aorta. At the end of the procedure the catheter was removed At the end of the procedure the sheath was removed. Vascular band was used FINDINGS: Hemodynamics LV 127/11, end-diastolic pressure of 11 Aorta 116/66 mean of 89 ANATOMY: Left Main is free of obstructive disease Left Anterior Descending slightly tortuous with no obstructive disease 40% stenosis of the mid LAD Left Circumflex has mild disease nonobstructive disease Right Coronary Artery has mild disease nonobstructive disease LV Gram was not done, pressure was measured Aorta evaluation done with aortic arch angiogram which showed bovine arch with the low insertion of the brachiocephalic artery coming from in the middle of the ascending aorta. No dissection or aneurysm CONCLUSION: 1. Mild coronary artery disease nonobstructive disease 2. Normal left ventricular end-diastolic pressure 3. 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 I was unable to evaluate the abdominal aorta DISCUSSION AND RECOMMENDATION: Medical therapy is recommended no intervention is needed Anesthesia Type: Conscious Sedation Estimated blood loss (mL): 10 ml Contrast Amount: 32 ml Total Radiation Dose: 246 mGy Post-Procedure Diagnosis Post-operative diagnosis: Coronary artery disease Hypertension Hyperlipidemia Abdominal aortic aneurysm KEATON SIDDIQUI MD Nov 11, 2022 14:13
== END 2022-11-11 16:15 | disposition home or self-care (01) ==
LOC: CATH 11:25 → SDC 13:28 → CATH 16:15
PROVIDERS: ATTEND Internal Medicine Cardiovascular Disease
DX: I25.10 Atherosclerotic heart disease of native coronary artery without angina pectoris (principal); I11.0 Hypertensive heart disease with heart failure; E78.5 Hyperlipidemia, unspecified; I71.40 Abdominal aortic aneurysm, without rupture, unspecified; E66.9 Obesity, unspecified; I50.32 Chronic diastolic (congestive) heart failure; I48.0 Paroxysmal atrial fibrillation; J44.9 Chronic obstructive pulmonary disease, unspecified; E78.2 Mixed hyperlipidemia; K21.9 Gastro-esophageal reflux disease without esophagitis; M48.00 Spinal stenosis, site unspecified; I65.23 Occlusion and stenosis of bilateral carotid arteries; Z79.01 Long term (current) use of anticoagulants; Z86.16 Personal history of COVID-19; Z77.22 Contact with and (suspected) exposure to environmental tobacco smoke (acute) (chronic); Z79.899 Other long term (current) drug therapy; Z68.28 Body mass index [BMI] 28.0-28.9, adult
CPT/HCPCS: 36221; 71045; 80053; 80061; 81000; 85027; 85610; 85730; 87077; 87081; 87088; 87186; 93005; 93458; 93567; C1894; 36415

== ENCOUNTER 2023-01-07 18:14 | Emergency (ER) | payer MEDICARE ==
[~2023-01-07] VITALS: Ht 162.4 cm; Wt 77.1 kg
[~2023-01-07 18:14] MED LIST changes: +CALC-250 PO; +FISH1CAP15 PO; +MTP25TSR PO; +MULT-1136 PO; +PANT40TA52 PO; +POLY30DR6 OP; +RIVA20TA PO; +SUCR1TAB PO
--- NOTE | 2023-01-07 18:24 | ED General ---
General Chief Complaint: General Problems/Pain Stated Complaint: POSS UTI History of Present Illness Date Seen by Provider: Jan 07, 2023 Time Seen by Provider: 18:20 Initial Comments 82-year-old female presents because she just has not felt well for couple days. She reports she has had some dry heaves. Pain with urination, fever. Thinks that she has a urinary tract infection. They are also concerned because she has a 5.2 cm infrarenal aortic aneurysm per ultrasound that I reviewed this was found back on November 05.. She does have an appointment on 01/13/2023 with vascular surgery. Allergies and Home Medications Allergies Coded Allergies: NSAIDS (Non-Steroidal Anti-Inflamma (Verified Allergy, Unknown, 03/21/09) Patient Home Medication List Home Medication List Reviewed: Yes Alendronate Sodium (Alendronate Sodium) 70 Mg Tablet, 70 MG PO WEDNESDAY, (Reported) Entered as Reported by: FRANCESCA VILLARREAL on 06/18/21 0841 Cephalexin (Cephalexin) 500 Mg Tablet, 500 MG PO QID Prescribed by: KEERTHI HASSAN on 01/07/23 193 Cholecalciferol (Vitamin D3) (Vitamin D3) 125 Mcg (5000 Unit) Tablet, 125 MCG PO HS, (Reported) Entered as Reported by: BRIAN MAURO on 11/11/22 1230 Fish Oil/Dha/Epa (Fish Oil 1,200 mg Fish Oil) 1,200 Mg-144 Mg-216 Mg Capsule, 1 EACH PO HS, (Reported) Entered as Reported by: BRIAN MAURO on 11/11/22 1230 Losartan Potassium (Losartan Potassium) 25 Mg Tablet, 25 MG PO DAILY, (Reported) Entered as Reported by: BRIAN MAURO on 11/11/22 1230 Metoprolol Succinate (Metoprolol Succinate) 25 Mg Tab.er.24h, 25 MG PO HS, (Reported) Entered as Reported by: BRIAN MAURO on 11/11/22 1230 Multivitamin (Multivitamin) 1 Each Tablet, 1 EACH PO DAILY, (Reported) Entered as Reported by: BRIAN MAURO on 11/11/22 1230 Pantoprazole Sodium (Pantoprazole Sodium) 40 Mg Tablet.dr, 40 MG PO BID, (Reported) Entered as Reported by: BRIAN MAURO on 11/11/22 1230 Polyethylene Glycol 400 (Visine Dry Eye Relief) 1 % Drops, 1 DROP OP DAILY PRN for DRY EYES, (Reported) Entered as Reported by: BRIAN MAURO on 11/11/22 1230 Rivaroxaban (Xarelto) 20 Mg Tablet, 20 MG PO DAILY, (Reported) Entered as Reported by: BRIAN MAURO on 11/11/22 1233 Sucralfate (Sucralfate) 1 Gram Tablet, 1 GM PO HS, (Reported) Entered as Reported by: BRIAN MAURO on 11/11/22 1230 Tramadol HCl (Tramadol HCl) 50 Mg Tablet, 50 MG PO BID, (Reported) Entered as Reported by: SHANTI MANUEL on 11/28/18 1607 Review of Systems Review of Systems Constitutional: chills, fever, malaise Respiratory: No cough, No short of breath Cardiovascular: no symptoms reported Gastrointestinal: see HPI, nausea, vomiting Genitourinary: dysuria, frequency Musculoskeletal: no symptoms reported Skin: no symptoms reported Psychiatric/Neurological: No Symptoms Reported Hematologic/Lymphatic: No Symptoms Reported Past Yhakhhw-Ryvhho-Teowbf Hx Immunizations Up To Date Tetanus Booster (TDap): Unknown PED Vaccines UTD: Yes First/Initial COVID19 Vaccinat: DECEMBER 2020 Second COVID19 Vaccination Sanjeev: DECEMBER 2020 Third COVID19 Vaccination Date: DECEMBER 2020 Seasonal Allergies Seasonal Allergies: Yes Past Medical History Surgery/Hospitalization HX: COPD, ABDOMINAL ANYERISM Surgeries: Yes (knees replaced bilateral) Hysterectomy, Joint Replacement, Orthopedic, Tonsillectomy, Tubal Ligation Respiratory: Yes (hx. 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 Heart Disease, Hypertension Physical Exam Vital Signs Vital Signs - First Documented 01/07/23 01/07/23 01/07/23 18:20 20:24 20:38 Temp 38.2 Pulse 81 Resp 20 B/P (MAP) 147/77 (100) Pulse Ox 97 O2 Delivery Nasal Cannula O2 Flow Rate 3.00 Capillary Refill : Height, Weight, BMI Height: 5'6.00" Weight: 167lbs. 6.0oz. 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 Norm as Tested Skin: Normal Color, Warm/Dry Progress/Results/Core Measures Suspected Sepsis SIRS Temperature: Pulse: Respiratory Rate: Laboratory Tests 01/07/23 18:27: White Blood Count 14.5H Blood Pressure / Mean: Laboratory Tests 01/07/23 18:27: Creatinine 1.23, Platelet Count 188, Total Bilirubin 1.2H Results/Orders Lab Results Laboratory Tests Test 01/07/23 18:27 01/07/23 19:03 Range/Units White Blood Count 14.5 H 4.3-11.0 10^3/uL Red Blood Count 3.82 3.80-5.11 10^6/uL Hemoglobin 11.6 11.5-16.0 g/dL Hematocrit 35 35-52 % Mean Corpuscular Volume 91 80-99 fL Mean Corpuscular Hemoglobin 30 25-34 pg Mean Corpuscular Hemoglobin Concent 33 32-36 g/dL Red Cell Distribution Width 14.7 H 10.0-14.5 % Platelet Count 188 130-400 10^3/uL Mean Platelet Volume 9.7 9.0-12.2 fL Immature Granulocyte % (Auto) 1 % Neutrophils (%) (Auto) 88 H 42-75 % Lymphocytes (%) (Auto) 5 L 12-44 % Monocytes (%) (Auto) 6 0-12 % Eosinophils (%) (Auto) 0 0-10 % Basophils (%) (Auto) 0 0-10 % Neutrophils # (Auto) 12.7 H 1.8-7.8 10^3/uL Lymphocytes # (Auto) 0.7 L 1.0-4.0 10^3/uL Monocytes # (Auto) 0.9 0.0-1.0 10^3/uL Eosinophils # (Auto) 0.1 0.0-0.3 10^3/uL Basophils # (Auto) 0.0 0.0-0.1 10^3/uL Immature Granulocyte # (Auto) 0.1 0.0-0.1 10^3/uL Neutrophils % (Manual) 96 % Lymphocytes % (Manual) 1 % Monocytes % (Manual) 3 % Hypersegmented Neutrophils SLIGHT Blood Morphology Comment NORMAL Sodium Level 138 135-145 MMOL/L Potassium Level 3.7 3.6-5.0 MMOL/L Chloride Level 103 98-107 MMOL/L Carbon Dioxide Level 20 L 21-32 MMOL/L Anion Gap 15 H 5-14 MMOL/L Blood Urea Nitrogen 20 H 7-18 MG/DL Creatinine 1.23 0.60-1.30 MG/DL Estimat Glomerular Filtration Rate 43 BUN/Creatinine Ratio 16 Glucose Level 127 H 70-105 MG/DL Calcium Level 9.0 8.5-10.1 MG/DL Corrected Calcium 9.4 8.5-10.1 MG/DL Total Bilirubin 1.2 H 0.1-1.0 MG/DL Aspartate Amino Transf (AST/SGOT) 22 5-34 U/L Alanine Aminotransferase (ALT/SGPT) 13 0-55 U/L Alkaline Phosphatase 84 40-136 U/L Total Protein 7.2 6.4-8.2 GM/DL Albumin 3.5 3.2-4.5 GM/DL Urine Color ORANGE Urine Clarity SL CLOUDY Urine pH 6.0 5-9 Urine Specific [place] >=1.030 1.016-1.022 Urine Protein 3+ H NEGATIVE Urine Glucose (UA) NEGATIVE NEGATIVE Urine Ketones 1+ H NEGATIVE Urine Nitrite NEGATIVE NEGATIVE Urine Bilirubin 1+ H NEGATIVE Urine Urobilinogen 1.0 < = 1.0 MG/DL Urine Leukocyte Esterase 3+ H NEGATIVE Urine RBC (Auto) 3+ H NEGATIVE Urine RBC 10-25 H /HPF Urine WBC >100 H /HPF Urine Squamous Epithelial Cells >50 H /HPF Urine Crystals NONE /LPF Urine Bacteria MODERATE H /HPF Urine Casts NONE /LPF Urine Mucus NEGATIVE /LPF Urine Culture Indicated YES My Orders Orders - NEELAM HASSANVOR L DO Cbc With Automated Diff (01/07/23 18:24) Comprehensive Metabolic Panel (01/07/23 18:24) Ua Culture If Indicated (01/07/23 18:24) Ondansetron Injection (Zofran Injectio (01/07/23 18:30) Manual Differential (01/07/23 18:27) Urine Culture (01/07/23 19:03) Ceftriaxone Inj (Rocephin Inj) (01/07/23 19:30) Acetaminophen Tablet (Tylenol Tablet) (01/07/23 20:30) Medications Given in ED Current Medications Medications Dose Ordered Sig/Diana Route Start Time Stop Time Status Last Admin Dose Admin Acetaminophen 1,000 mg ONCE ONCE PO 01/07/23 20:30 01/07/23 20:31 DC 01/07/23 20:31 1,000 MG Ceftriaxone Sodium 2000 mg/ Sodium Chloride 50 ml @ 240 mls/hr ONCE ONCE IV 01/07/23 19:30 01/07/23 19:42 DC 01/07/23 19:36 240 MLS/HR Ondansetron HCl 4 mg ONCE ONCE IVP 01/07/23 18:30 01/07/23 18:31 DC 01/07/23 18:43 4 MG Vital Signs/I&O 01/07/23 01/07/23 01/07/23 01/07/23 18:20 20:24 20:31 20:38 Temp 38.2 38.2 38.2 Pulse 81 77 Resp 20 B/P (MAP) 147/77 (100) 120/72 Pulse Ox 97 97 O2 Delivery Nasal Cannula Nasal Cannula O2 Flow Rate 3.00 3.00 3.00 01/08/23 00:00 Intake Total 50 ml Balance 50 ml Capillary Refill : Progress Note : Progress Note Patient's diagnostic studies were ordered reviewed and interpreted by me. She does have a slight elevated white count consistent with a urinary tract infection. She does have a significant urinalysis for infection. She has an appointment on 01/13/2023 to meet with a vascular surgeon concerning treatment for her known aortic aneurysm. This time do not feel she needs to be admitted. I will give her 2 g of IV Rocephin in the ER and start her on Keflex tomorrow in case is starting to ascend towards her kidneys. She should return to the ER with any concerns or worsening of her symptoms. I did discuss findings with both her and her son. I also reviewed her previous imaging regarding her concern for infrarenal aortic aneurysm. Patient was stable and discharged home Departure Impression Primary Impression: Urinary tract infection Qualified Codes: N39.0 - Urinary tract infection, site not specified; R31.9 - Hematuria, unspecified Additional Impression: Abdominal aortic aneurysm Qualified Codes: I71.43 - Infrarenal abdominal aortic aneurysm, without rupture Disposition: 01 HOME, SELF-CARE Condition: Stable Departure-Patient Inst. Referrals: FOREIGN MARS MD (PCP/Family) Primary Care Physician Patient Instructions: Urinary Tract Infections in Adults Add. Discharge Instructions: Please return to the ER with any concerns or worsening of symptoms. Please keep your appointment on 01/13/2023 with your vascular surgeon. All discharge instructions reviewed with patient and/or family. Voiced understanding. Scripts Cephalexin (Cephalexin) 500 Mg Tablet 500 MG PO QID, #20 TAB 0 Refills Prov: KEERTHI HASSAN DO 01/07/23 KEERTHI HASSAN DO Jan 07, 2023 18:24
[2023-01-07] MEDS ORDERED: ONDANSETRON 4 MG/2 ML (SDV) Z0FRAN IVP ONE (18:30)
[2023-01-07 18:42] LABS: BASOPHILS % (AUTO) 0 % (0-10); EOSINOPHILS # (AUTO) 0.1 10^3/uL (0.0-0.3); EOSINOPHILS % (AUTO) 0 % (0-10); HEMATOCRIT 35 % (35-52); HEMOGLOBIN 11.6 g/dL (11.5-16.0); LYMPHOCYTES # (AUTO) 0.7 10^3/uL (1.0-4.0); LYMPHOCYTES % (AUTO) 5 % (12-44); MEAN CORPUSCULAR HEMOGLOBIN 30 pg (25-34); MEAN CORPUSCULAR HGB CONC 33 g/dL (32-36); MEAN CORPUSCULAR VOLUME 91 fL (80-99); MEAN PLATELET VOLUME 9.7 fL (9.0-12.2); MONOCYTES # (AUTO) 0.9 10^3/uL (0.0-1.0); MONOCYTES % (AUTO) 6 % (0-12); NEUTROPHILS # (AUTO) 12.7 10^3/uL (1.8-7.8); NEUTROPHILS % (AUTO) 88 % (42-75); PLATELET COUNT 188 10^3/uL (130-400); WHITE BLOOD COUNT 14.5 10^3/uL (4.3-11.0)
[2023-01-07 18:52] LABS: ALBUMIN 3.5 GM/DL (3.2-4.5)
[2023-01-07 18:53] LABS: POTASSIUM 3.7 MMOL/L (3.6-5.0)
[2023-01-07 18:55] LABS: TOTAL PROTEIN 7.2 GM/DL (6.4-8.2)
[2023-01-07 18:57] LABS: BILIRUBIN,TOTAL 1.2 MG/DL (0.1-1.0)
[2023-01-07 18:58] LABS: CREATININE SERUM 1.23 MG/DL (0.60-1.30); LYMPHOCYTES % (MANUAL) 1 %; MONOCYTES % (MANUAL) 3 %; NEUTROPHILS % (MANUAL) 96 %
[2023-01-07 18:59] LABS: HYPERSEGMENTED NEUT SLIGHT; RBC MORPH NORMAL
[2023-01-07 19:12] LABS: BILIRUBIN,URINE 1+ (NEGATIVE); CLARITY,URINE SL CLOUDY; COLOR,URINE ORANGE; GLUCOSE, URINE (UA) NEGATIVE (NEGATIVE); KETONES,URINE 1+ (NEGATIVE); LEUKOCYTE ESTERASE ,URINE 3+ (NEGATIVE); NITRITE,URINE NEGATIVE (NEGATIVE); PROTEIN,URINE 3+ (NEGATIVE)
[2023-01-07 19:19] LABS: SQUAMOUS EPITHELIAL CELL,UR >50 /HPF
[2023-01-07 19:20] LABS: WBC,URINE >100 /HPF
[2023-01-07 19:21] LABS: BACTERIA,URINE MODERATE /HPF
[2023-01-07] MEDS ORDERED: cefTRIAXone INJ 2,000 MG in NS (IVPB) 50 ML IV ONE (19:30)
[2023-01-07] MEDS ORDERED: CEPH500T PO (19:33)
[2023-01-07] MEDS ORDERED: ACETAMINOPHEN 500 MG TAB (TYLENOL) PO ONE (20:30)
[2023-01-07 20:38] VITALS: BP 120/72
== END 2023-01-07 20:43 | disposition home or self-care (01) ==
LOC: EDUNIT# 18:14 → ER 18:15
DX: N39.0 Urinary tract infection, site not specified (principal); I71.43 Infrarenal abdominal aortic aneurysm, without rupture
CPT/HCPCS: 36415; 80053; 81000; 85007; 85027; 87040; 87077; 87088; 87186

== ENCOUNTER → 2023-01-15 | Outpatient (CLI) | payer MEDICARE ==
[~2023-01-15] MED LIST changes: +CEPH500T PO
[2023-01-15 08:03] LABS: HEMATOCRIT 32 % (35-52); HEMOGLOBIN 10.3 g/dL (11.5-16.0); MEAN CORPUSCULAR HEMOGLOBIN 30 pg (25-34); MEAN CORPUSCULAR HGB CONC 33 g/dL (32-36); MEAN CORPUSCULAR VOLUME 93 fL (80-99); MEAN PLATELET VOLUME 8.7 fL (9.0-12.2); PLATELET COUNT 359 10^3/uL (130-400); WHITE BLOOD COUNT 7.1 10^3/uL (4.3-11.0)
[2023-01-15 08:12] LABS: BILIRUBIN,URINE NEGATIVE (NEGATIVE); CLARITY,URINE CLEAR; COLOR,URINE YELLOW; GLUCOSE, URINE (UA) NEGATIVE (NEGATIVE); KETONES,URINE NEGATIVE (NEGATIVE); LEUKOCYTE ESTERASE ,URINE TRACE (NEGATIVE); NITRITE,URINE NEGATIVE (NEGATIVE); PROTEIN,URINE 1+ (NEGATIVE)
[2023-01-15 08:19] LABS: ALBUMIN 3.4 GM/DL (3.2-4.5); POTASSIUM 2.9 MMOL/L (3.6-5.0)
[2023-01-15 08:24] LABS: BILIRUBIN,TOTAL 0.6 MG/DL (0.1-1.0)
[2023-01-15 08:26] LABS: CREATININE SERUM 1.3 MG/DL (0.60-1.30)
[2023-01-15 08:27] LABS: BACTERIA,URINE FEW /HPF; SQUAMOUS EPITHELIAL CELL,UR >50 /HPF
--- NOTE | 2023-01-15 15:56 | Diagnostic Imaging Report ---
CHEST PA/LAT (2 VIEW) Indication: Long-term drug therapy. Her cardiorespiratory vascular surgery Comparison: 11/11/2022 Findings: No pulmonary mass or consolidation. 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 No pleural effusion or pneumothorax. Normal heart size and mediastinal contours. Impression: No acute cardiopulmonary process. Dictated by: Dictated on workstation # [id number]
== END ==
LOC: CARD 07:42
PROVIDERS: ATTEND Nurse Practitioner
DX: Z01.810 Encounter for preprocedural cardiovascular examination (principal); I71.43 Infrarenal abdominal aortic aneurysm, without rupture; Z79.899 Other long term (current) drug therapy
CPT/HCPCS: 36415; 71046; 80053; 81000; 83036; 85027; 93005

== ENCOUNTER 2023-01-19 18:08 | Inpatient (IN) | payer MEDICARE ==
[~2023-01-19] VITALS: Ht 164 cm; Wt 80.0 kg
[2023-01-19] MEDS ORDERED: LACTATED RINGERS 1,000 ML IV STA (18:16)
--- NOTE | 2023-01-19 18:22 | ED General ---
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 PT HAS NOT TAKEN ANYTHING FOR FEVER SHE HAS HAD CHILLS O2 SAT AT HOME BY FAMILY 87% ON ROOM AIR. NO HOME O2 PT DENIES FEELING SHORT OF BREATH DENIES COUGH DENIES CHEST PAIN DENIES PAIN ON URINATION, STATES SHE ALWAYS URINATES FREQUENTLY, AND NO CHANGE IN THE FREQUENCY SHE ATE EARLIER TODAY, AND WAS ABLE TO TAKE HER REGULAR MEDICATIONS TODAY BP ELEVATED AT HOME, 194/109 BY EMS. PT IS SCHEDULED TO HAVE SURGERY ON WEDNESDAY AT [place], FOR ABDOMINAL AORTIC ANEURYSM. PT IS ON XARELTO PT WAS SEEN HERE 01/07/23 AND DX WITH UTI. GIVEN RX FOR KEFLEX BLOOD CULTURES FROM THAT VISIT WERE + FOR E.COLI. PT STATES SHE HAS NOT SEEN ANYONE SINCE THAT VISIT. SHE HAS NOT SEEN DR. MARS FOR A COUPLE OF MONTHS. SHE STATES SHE GOT STARTED ON 2 NEW MEDICATIONS TODAY--MACROBID AND KCL, PER MED RECONCILIATION. PCP: DR. MARS Allergies and Home Medications Allergies Coded Allergies: NSAIDS (Non-Steroidal Anti-Inflamma (Verified Allergy, Unknown, 03/21/09) Patient Home Medication List Home Medication List Reviewed: Yes Alendronate Sodium (Alendronate Sodium) 70 Mg Tablet, 70 MG PO WEDNESDAY, (Repo rted) Entered as Reported by: FRANCESCA VILLARREAL on 06/18/21 0841 Cephalexin (Cephalexin) 500 Mg Tablet, 500 MG PO QID Prescribed by: KEERTHI HASSAN on 01/07/23 1933 Cholecalciferol (Vitamin D3) (Vitamin D3) 125 Mcg (5000 Unit) Tablet, 125 MCG PO HS, (Reported) Entered as Reported by: BRIAN MAURO on 11/11/22 1230 Fish Oil/Dha/Epa (Fish Oil 1,200 mg Fish Oil) 1,200 Mg-144 Mg-216 Mg Capsule, 1 EACH PO HS, (Reported) Entered as Reported by: BRIAN MAURO on 11/11/22 1230 Losartan Potassium (Losartan Potassium) 25 Mg Tablet, 25 MG PO DAILY, (Reported) Entered as Reported by: BRIAN MAURO on 11/11/22 123 Metoprolol Succinate (Metoprolol Succinate) 25 Mg Tab.er.24h, 25 MG PO HS, (Reported) Entered as Reported by: BRIAN MAURO on 11/11/22 123 Multivitamin (Multivitamin) 1 Each Tablet, 1 EACH PO DAILY, (Reported) Entered as Reported by: BRIAN MAURO on 11/11/22 123 Pantoprazole Sodium (Pantoprazole Sodium) 40 Mg Tablet.dr, 40 MG PO BID, (Reported) Entered as Reported by: BRIAN MAURO on 11/11/22 123 Polyethylene Glycol 400 (Visine Dry Eye Relief) 1 % Drops, 1 DROP OP DAILY PRN for DRY EYES, (Reported) Entered as Reported by: BRIAN MAURO on 11/11/22 123 Rivaroxaban (Xarelto) 20 Mg Tablet, 20 MG PO DAILY, (Reported) Entered as Reported by: BRIAN MAURO on 11/11/22 123 Sucralfate (Sucralfate) 1 Gram Tablet, 1 GM PO HS, (Reported) Entered as Reported by: BRIAN MAURO on 11/11/22 123 Tramadol HCl (Tramadol HCl) 50 Mg Tablet, 50 MG PO BID, (Reported) Entered as Reported by: SHANTI MANUEL on 11/28/18 1607 Review of Systems Review of Systems Constitutional: see HPI, chills, fever, malaise, weakness EENTM: no symptoms reported Respiratory: no symptoms reported; No cough, No short of breath Cardiovascular: no symptoms reported Gastrointestinal: see HPI; No abdominal pain; loss of appetite, nausea, vomiting Genitourinary: see HPI, frequency Musculoskeletal: no symptoms reported Skin: no symptoms reported Psychiatric/Neurological: No Symptoms Reported Hematologic/Lymphatic: No Symptoms Reported Immunological/Allergic: no symptoms reported Past Dhqdpcz-Kkxelc-Owunut Hx Patient Social History Tobacco Use?: No Substance use?: No Alcohol Use?: No Immunizations Up To Date Tetanus Booster (TDap): Unknown PED Vaccines UTD: Yes First/Initial COVID19 Vaccinat: DECEMBER 2020 Second COVID19 Vaccination Sanjeev: DECEMBER 2020 Third COVID19 Vaccination Date: DECEMBER 2020 Seasonal Allergies Seasonal Allergies: Yes Past Medical History Surgery/Hospitalization HX: COPD, ABDOMINAL ANYERISM Surgeries: Yes (BILATERAL KNEE REPLACEMENT) Hysterectomy, Joint Replacement, Orthopedic, Tonsillectomy, Tubal Ligation Respiratory: Yes (hx. 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 Heart Disease, Hypertension ADMITTED 03/2022 AND DX WITH COVID-19 INFECTION AND NEW ONSET OF ATRIAL FIBRILLATION, AND NSTEMI. CARDIAC CATH 11/11/[address] SIDDIQUI: CONCLUSION: 1. Mild coronary artery disease nonobstructive disease 2. Normal left ventricular end-diastolic pressure 3. 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 I was unable to evaluate the abdominal aorta DISCUSSION AND RECOMMENDATION: Medical therapy is recommended no intervention is needed Physical Exam Vital Signs Vital Signs - First Documented Capillary Refill : Height, Weight, BMI Height: 5'6.00" Weight: 167lbs. 6.0oz. 75.753820es; 29.00 BMI Method:Stated General Appearance: WD/WN, Other (SOMEWHAT LETHARGIC, CURRENTLY DRY HEAVING. ) HEENT: PERRL/EOMI Neck: Normal Inspection Respiratory: Normal Breath Sounds, No Accessory Muscle Use, No Respiratory Distress Cardiovascular: Regular Rate, Rhythm, No Edema, No JVD, No Murmur Gastrointestinal: Non Tender, Soft, Abnormal Bowel Sounds (DECREASED) Back: No CVA Tenderness Extremity: Normal Capillary Refill, Normal Inspection, No Pedal Edema Neurologic/Psychiatric: Alert, Oriented x3, No Motor/Sensory Deficits Skin: Normal Color, Warm/Dry Focused Exam Sepsis Stage: Sepsis Possible Source: Unknown Lactate Level 01/19/23 18:25: Lactic Acid Level 1.99 Time of Focused Exam: 19:45 Respiratory: Normal Breath Sounds, No Accessory Muscle Use, No Respiratory Distress Cardiovascular: Regular Rate, Rhythm, No JVD, No Murmur Capillary Refill: Less Than 3 Seconds Skin: normal color, warm/dry Lactic Acid Level Laboratory Tests Test 01/19/23 18:25 Lactic Acid Level 1.99 MMOL/L (0.50-2.00) Within 3hrs of presentation: Admin fluids, Admin ABX, Blood cultures prior to ABX's, Focus exam, Lactate level Progress/Results/Core Measures Suspected Sepsis SIRS Temperature: Pulse: Respiratory Rate: Laboratory Tests 01/19/23 18:25: White Blood Count 12.6H Blood Pressure / Mean: 01/19/23 18:25: Lactic Acid Level 1.99 Laboratory Tests 01/19/23 18:25: Creatinine 1.26, INR Comment 2.7H, Platelet Count 442H, Total Bilirubin 0.4 Results/Orders Lab Results Laboratory Tests Test 01/19/23 18:25 01/19/23 18:43 01/19/23 19:54 Range/Units White Blood Count 12.6 H 4.3-11.0 10^3/uL Red Blood Count 3.77 L 3.80-5.11 10^6/uL Hemoglobin 11.3 L 11.5-16.0 g/dL Hematocrit 34 L 35-52 % Mean Corpuscular Volume 91 80-99 fL Mean Corpuscular Hemoglobin 30 25-34 pg Mean Corpuscular Hemoglobin Concent 33 32-36 g/dL Red Cell Distribution Width 14.5 10.0-14.5 % Platelet Count 442 H 130-400 10^3/uL Mean Platelet Volume 9.0 9.0-12.2 fL Immature Granulocyte % (Auto) 1 % Neutrophils (%) (Auto) 92 H 42-75 % Lymphocytes (%) (Auto) 4 L 12-44 % Monocytes (%) (Auto) 3 0-12 % Eosinophils (%) (Auto) 1 0-10 % Basophils (%) (Auto) 0 0-10 % Neutrophils # (Auto) 11.7 H 1.8-7.8 10^3/uL Lymphocytes # (Auto) 0.4 L 1.0-4.0 10^3/uL Monocytes # (Auto) 0.3 0.0-1.0 10^3/uL Eosinophils # (Auto) 0.1 0.0-0.3 10^3/uL Basophils # (Auto) 0.0 0.0-0.1 10^3/uL Immature Granulocyte # (Auto) 0.1 0.0-0.1 10^3/uL Neutrophils % (Manual) 91 % Lymphocytes % (Manual) 7 % Monocytes % (Manual) 1 % Eosinophils % (Manual) 1 % Blood Morphology Comment NORMAL Erythrocyte Sedimentation Rate 45 H 0-30 MM/HR Prothrombin Time 28.9 H 12.2-14.7 SEC INR Comment 2.7 H 0.8-1.4 Activated Partial Thromboplast Time 47 H 24-35 SEC Sodium Level 141 135-145 MMOL/L Potassium Level 4.4 3.6-5.0 MMOL/L Chloride Level 103 98-107 MMOL/L Carbon Dioxide Level 23 21-32 MMOL/L Anion Gap 15 H 5-14 MMOL/L Blood Urea Nitrogen 14 7-18 MG/DL Creatinine 1.26 0.60-1.30 MG/DL Estimat Glomerular Filtration Rate 42 BUN/Creatinine Ratio 11 Glucose Level 111 H 70-105 MG/DL Lactic Acid Level 1.99 0.50-2.00 MMOL/L Calcium Level 9.7 8.5-10.1 MG/DL Corrected Calcium 9.9 8.5-10.1 MG/DL Magnesium Level 1.6 1.6-2.4 MG/DL Total Bilirubin 0.4 0.1-1.0 MG/DL Aspartate Amino Transf (AST/SGOT) 24 5-34 U/L Alanine Aminotransferase (ALT/SGPT) 11 0-55 U/L Alkaline Phosphatase 94 40-136 U/L Total Creatine Kinase 41 29-168 U/L Creatine Kinase MB 0.9 <6.6 NG/ML Troponin I < 0.028 <0.028 NG/ML C-Reactive Protein High Sensitivity 1.89 H 0.00-0.50 MG/DL B-Type Natriuretic Peptide 205.2 H <100.0 PG/ML Total Protein 7.6 6.4-8.2 GM/DL Albumin 3.7 3.2-4.5 GM/DL Amylase Level 58 25-125 U/L Lipase 47 8-78 U/L Urine Color YELLOW Urine Clarity CLEAR Urine pH 6.0 5-9 Urine Specific [place] 1.010 L 1.016-1.022 Urine Protein TRACE H NEGATIVE Urine Glucose (UA) NEGATIVE NEGATIVE Urine Ketones NEGATIVE NEGATIVE Urine Nitrite NEGATIVE NEGATIVE Urine Bilirubin NEGATIVE NEGATIVE Urine Urobilinogen 0.2 < = 1.0 MG/DL Urine Leukocyte Esterase NEGATIVE NEGATIVE Urine RBC (Auto) 1+ H NEGATIVE Urine RBC 5-10 H /HPF Urine WBC 0-2 /HPF Urine Squamous Epithelial Cells 0-2 /HPF Urine Crystals NONE /LPF Urine Bacteria TRACE /HPF Urine Casts PRESENT /LPF Urine Hyaline Casts RARE /LPF Urine Mucus SMALL H /LPF Urine Culture Indicated NO Influenza Type A (RT-PCR) Not Detected Not Detecte Influenza Type B (RT-PCR) Not Detected Not Detecte SARS-CoV-2 RNA (RT-PCR) Not Detected Not Detecte My Orders Orders - SIERRA MARADIAGA DO Ed Iv/Invasive Line Start (01/19/23 18:16) Ekg Tracing (01/19/23 18:16) Catheter(Urinary) Insert & Ass 03,15 (01/19/23 18:16) O2 (01/19/23 18:16) Monitor-Rhythm Ecg Trace Only (01/19/23 18:16) Ondansetron Injection (Zofran Injectio (01/19/23 18:30) Lactated Ringers (Lr 1000 Ml Iv Solution (01/19/23 18:16) Amylase (01/19/23 18:16) Cbc With Automated Diff (01/19/23 18:16) Comprehensive Metabolic Panel (01/19/23 18:16) Lipase (01/19/23 18:16) Magnesium (01/19/23 18:16) Protime With Inr (01/19/23 18:16) Partial Thromboplastin Time (01/19/23 18:16) Covid 19 Inhouse Test (01/19/23 18:16) Blood Culture (01/19/23 18:16) Sputum Culture (01/19/23 18:16) Urinalysis (01/19/23 18:16) Urine Culture (01/19/23 18:16) Chest 1 View, Ap/Pa Only (01/19/23 18:16) Acetaminophen Tablet (Tylenol Tablet) (01/19/23 18:30) Ed Iv/Invasive Line Start (01/19/23 18:16) Ed Iv/Invasive Line Start (01/19/23 18:16) Ekg Tracing (01/19/23 18:16) Vital Signs Adult Sepsis Patie Q15M (01/19/23 18:16) O2 (01/19/23 18:16) Remove Rings In Anticipation O (01/19/23 18:16) Lactic Acid Analyzer (01/19/23 18:16) Cefepime Injection (Maxipime Injection) (01/19/23 18:30) Lidocaine 2% (Urojet) (Xylocaine Urojet) (01/19/23 18:30) Influenza A And B By Pcr (01/19/23 18:16) Isolation Central Supply Req (01/19/23 18:16) Bnp Chris (01/19/23 18:16) Creatine Kinase (01/19/23 18:16) Creatine Kinase Mb (01/19/23 18:16) Hs C Reactive Protein (01/19/23 18:16) Erythrocyte Sedimentation Rate (01/19/23 18:16) Troponin I Chris (01/19/23 18:16) Manual Differential (01/19/23 18:25) Ct Chest/Abdomen/Pelvis Wo (01/19/23 19:17) Ondansetron Injection (Zofran Injectio (01/19/23 19:30) Ed Iv/Invasive Line Start (01/19/23 20:16) Lactated Ringers (Lr 1000 Ml Iv Solution (01/19/23 20:30) Ed Iv/Invasive Line Start (01/19/23 20:49) Lactated Ringers (Lr 1000 Ml Iv Solution (01/19/23 21:00) Medications Given in ED Current Medications Medications Dose Ordered Sig/Diana Route Start Time Stop Time Status Last Admin Dose Admin Acetaminophen 1,000 mg ONCE PRN PO 01/19/23 18:30 01/19/23 19:08 DC 01/19/23 19:08 1,000 MG Cefepime HCl 1000 mg/Sodium Chloride 50 ml @ 100 mls/hr ONCE ONCE IV 01/19/23 18:30 01/19/23 18:59 DC 01/19/23 19:07 100 MLS/HR Lactated Ringer's 1,000 ml @ 0 mls/hr Q0M ONCE IV 01/19/23 20:30 01/19/23 20:31 DC 01/19/23 20:46 1,000 MLS/HR Lidocaine HCl 10 ml ONCE ONCE TOP 01/19/23 18:30 01/19/23 18:31 DC 01/19/23 18:28 10 ML Ondansetron HCl 4 mg ONCE ONCE IVP 01/19/23 18:30 01/19/23 18:31 DC 01/19/23 18:26 4 MG Ondansetron HCl 4 mg ONCE ONCE IVP 01/19/23 19:30 01/19/23 19:31 DC 01/19/23 19:25 4 MG Vital Signs/I&O 01/19/23 01/19/23 01/19/23 01/19/23 18:15 18:15 18:15 19:08 Temp 38.7 38.7 38.7 Pulse 86 86 Resp 20 20 B/P (MAP) 163/93 (116) 163/93 Pulse Ox 96 96 96 O2 Delivery Nasal Cannula Nasal Cannula O2 Flow Rate 2.00 2.00 2.00 01/19/23 01/19/23 01/19/23 01/19/23 19:49 20:00 20:15 20:30 Temp 38.6 B/P (MAP) 136/72 (93) 142/80 (100) 123/68 (86) 01/19/23 20:45 B/P (MAP) 116/62 (80) Capillary Refill : Progress Note : Progress Note PPE WORN COVID AND FLU TESTING DONE SEPSIS PROTOCOL INITIATED GIVEN: -IV FLUIDS -ZOFRAN -CEFEPIME -TYLENOL FOR FEVER NO DETERIORATION IN PT'S CONDITION DURING ER STAY NO HYPOTENSION OR TACHYCARDIA NAUSEA RESOLVED WITH ZOFRAN TEMP DOWN WITH TYLENOL BP DOWN NAUSEA IMPROVED. PT STATES SHE FEELS BETTER AT TIME OF ADMIT. REVIEWED PRIOR RECORDS, INCLUDING ER VISITS, ADMITS/H&P'S / CONSULTS / DISCHARGE SUMMARIES, TESTS/PROCEDURES DISCUSSED TEST RESULTS WITH PT AND DAUGHTERS, NEED FOR ADMIT AND PT AGREES TO PLAN DISCUSSED CODE STATUS WITH PT, WITH DAUGHTERS PRESENT, AND PT WISHES TO BE A FULL CODE. ECG Initial ECG Impression Date: Jan 19, 2023 Initial ECG Impression Time: 19:26 Initial ECG Rate: 82 Initial ECG Rhythm: Normal Sinus Initial ECG Intervals MS 144 QRS 92 QT/QTC 423/494 Initial ECG Impression: Nonspecific Changes Diagnostic Imaging Comments CXR--PER RADIOLOGIST REPORT AT 1855 FINDINGS: The heart size is normal. The pulmonary vascularity is unremarkable. The lungs are clear. No infiltrate, effusion or pneumothorax is detected. IMPRESSION: No acute cardiopulmonary process is detected. CT CHEST/ABDOMEN/PELVIS--PER RADIOLOGIST REPORT AT 2002 CT CHEST: No pericardial or pleural effusion is identified. Mediastinal evaluation is limited without intravenous contrast. There are some calcified nodes in the mediastinum consistent with prior granulomatous disease. Patient does have a moderate-sized hiatal hernia. There is some minimal infiltrate or atelectasis in the right lower lobe. A rounded mass in the medial aspect of the right lower lobe adjacent to the right atrium is stable. No other masses are seen. CT abdomen and pelvis: The liver and gallbladder are unremarkable. Pancreas and spleen are unremarkable. No adrenal mass is detected. No renal calculi or hydronephrosis is identified. The infrarenal abdominal aortic aneurysm measures approximate 4.8 cm AP compared with 4.5 cm on prior. There is some mild aneurysmal dilatation of the left common iliac artery as well. There is no evidence of rupture or leakage. Bowel loops are nonobstructed. There is diverticulosis of the sigmoid and descending colon but no evidence of acute articularis. There is no ascites. Bladder is decompressed by a Bateman catheter. IMPRESSION: 1. Stable noncontrast CT of the chest. No acute feature is identified. 2. Minimally increase in size of the infrarenal abdominal aortic aneurysm since examination from March 2022. There is no evidence of leakage or rupture. No acute feature in abdomen or pelvis is identified. 3. Uncomplicated diverticulosis. Reviewed: Reviewed by Me Departure Communication (Admissions) 2004--SPOKE WITH DR. MARS FAMILY NOW STATES THEY WANT PT TRANSFERRED TO [facility] HER CV SURGEON IS THERE. 2009--CALLED [facility], THEY DO NOT HAVE ANY BEDS-AT CAPACITY, INFORMED FAMILY OF THIS AND THEY ARE AGREEABLE TO PT STAYING HERE, HER CURRENT PROBLEM DOES NOT APPEAR TO BE RELATED TO HER ANEURYSM 2012--CALLED DR. MARS BACK. SHE ACCEPTS PT FOR ADMIT Impression Primary Impression: Sepsis Additional Impressions: Recent urinary tract infection AAA (abdominal aortic aneurysm) without rupture Disposition: ADMITTED INPATIENT Condition: Improved Admissions Decision to Admit Reason: Admit from ER (General) Decision to Admit/Date: Jan 19, 2023 Time/Decision to Admit Time: 20:15 Departure-Patient Inst. Referrals: FOREIGN MARS MD (PCP/Family) Primary Care Physician SIERRA MARADIAGA DO Jan 19, 2023 18:22
[2023-01-19] MEDS ORDERED: ONDANSETRON 4 MG/2 ML (SDV) Z0FRAN IVP ONE ×2 (18:30→19:30)
[2023-01-19] MEDS ORDERED: ACETAMINOPHEN 500 MG TAB (TYLENOL) PO PRN ×2 (18:30→22:45)
[2023-01-19] MEDS ORDERED: LIDOCAINE UROJET 2% GEL 10 ML PKG TOP ONE (18:30)
[2023-01-19] MEDS ORDERED: CEFEPIME INJECTION 1,000 MG in NS (IVPB) 50 ML IV ONE (18:30)
[2023-01-19 18:38] LABS: BASOPHILS % (AUTO) 0 % (0-10); EOSINOPHILS # (AUTO) 0.1 10^3/uL (0.0-0.3); EOSINOPHILS % (AUTO) 1 % (0-10); HEMATOCRIT 34 % (35-52); HEMOGLOBIN 11.3 g/dL (11.5-16.0); LYMPHOCYTES # (AUTO) 0.4 10^3/uL (1.0-4.0); LYMPHOCYTES % (AUTO) 4 % (12-44); MEAN CORPUSCULAR HEMOGLOBIN 30 pg (25-34); MEAN CORPUSCULAR HGB CONC 33 g/dL (32-36); MEAN CORPUSCULAR VOLUME 91 fL (80-99); MONOCYTES # (AUTO) 0.3 10^3/uL (0.0-1.0); MONOCYTES % (AUTO) 3 % (0-12); NEUTROPHILS # (AUTO) 11.7 10^3/uL (1.8-7.8); NEUTROPHILS % (AUTO) 92 % (42-75); PLATELET COUNT 442 10^3/uL (130-400); WHITE BLOOD COUNT 12.6 10^3/uL (4.3-11.0)
--- NOTE | 2023-01-19 18:45 | Diagnostic Imaging Report ---
INDICATION: Fever and elevated blood pressure. Time of Exam: 6:35 PM Correlation is made with prior chest of 11/11/2022. FINDINGS: The heart size is normal. The pulmonary vascularity is unremarkable. The lungs are clear. No infiltrate, effusion or pneumothorax is detected. IMPRESSION: No acute cardiopulmonary process is detected. Dictated by: Dictated on workstation # [id number]
[2023-01-19 18:53] LABS: BILIRUBIN,URINE NEGATIVE (NEGATIVE); CLARITY,URINE CLEAR; COLOR,URINE YELLOW; GLUCOSE, URINE (UA) NEGATIVE (NEGATIVE); KETONES,URINE NEGATIVE (NEGATIVE); LEUKOCYTE ESTERASE ,URINE NEGATIVE (NEGATIVE); NITRITE,URINE NEGATIVE (NEGATIVE); PROTEIN,URINE TRACE (NEGATIVE)
[2023-01-19 18:55] LABS: ALBUMIN 3.7 GM/DL (3.2-4.5); CHLORIDE 103 MMOL/L (98-107); POTASSIUM 4.4 MMOL/L (3.6-5.0); SODIUM 141 MMOL/L (135-145)
[2023-01-19 18:57] LABS: AMYLASE 58 U/L (25-125); CALCIUM 9.7 MG/DL (8.5-10.1)
[2023-01-19 18:58] LABS: GLUCOSE 111 MG/DL (70-105); TOTAL PROTEIN 7.6 GM/DL (6.4-8.2)
[2023-01-19 18:59] LABS: CARBON DIOXIDE 23 MMOL/L (21-32); ERYTHROCYTE SEDIMENTATION RATE 45 MM/HR (0-30)
[2023-01-19 19:00] LABS: BILIRUBIN,TOTAL 0.4 MG/DL (0.1-1.0)
[2023-01-19 19:01] LABS: ALKALINE PHOSPHATASE 94 U/L (40-136); CREATININE SERUM 1.26 MG/DL (0.60-1.30); GFR ESTIMATED 42
[2023-01-19 19:03] LABS: BUN/CREATININE RATIO 11
[2023-01-19 19:04] LABS: ALANINE AMINOTRANSFERASE 11 U/L (0-55); MAGNESIUM 1.6 MG/DL (1.6-2.4)
[2023-01-19 19:05] LABS: LIPASE 47 U/L (8-78)
[2023-01-19 19:06] LABS: BACTERIA,URINE TRACE /HPF; HYALINE CASTS, URINE RARE /LPF; SQUAMOUS EPITHELIAL CELL,UR 0-2 /HPF; WBC,URINE 0-2 /HPF
[2023-01-19 19:06] LABS: CREATINE KINASE 41 U/L (29-168)
[2023-01-19 19:09] LABS: INR 2.7 (0.8-1.4); PROTHROMBIN TIME PATIENT 28.9 SEC (12.2-14.7)
[2023-01-19 19:11] LABS: CREATINE KINASE MB 0.9 NG/ML (<6.6)
[2023-01-19 19:40] LABS: LYMPHOCYTES % (MANUAL) 7 %; NEUTROPHILS % (MANUAL) 91 %
[2023-01-19 19:41] LABS: EOSINOPHILS % (MANUAL) 1 %; MONOCYTES % (MANUAL) 1 %; RBC MORPH NORMAL
--- NOTE | 2023-01-19 20:01 | Diagnostic Imaging Report ---
PROCEDURE: CT chest, abdomen, and pelvis without contrast. TECHNIQUE: Multiple contiguous axial images were obtained through the chest, abdomen, and pelvis without the use of intravenous contrast. Auto Exposure Controls were utilized during the CT exam to meet ALARA standards for radiation dose reduction. INDICATION: Fever. Patient has known abdominal aortic aneurysm. Comparison is made with prior CT from 04/12/2022. CT CHEST: No pericardial or pleural effusion is identified. Mediastinal evaluation is limited without intravenous contrast. There are some calcified nodes in the mediastinum consistent with prior granulomatous disease. Patient does have a moderate-sized hiatal hernia. There is some minimal infiltrate or atelectasis in the right lower lobe. A rounded mass in the medial aspect of the right lower lobe adjacent to the right atrium is stable. No other masses are seen. CT abdomen and pelvis: The liver and gallbladder are unremarkable. Pancreas and spleen are unremarkable. No adrenal mass is detected. No renal calculi or hydronephrosis is identified. The infrarenal abdominal aortic aneurysm measures approximate 4.8 cm AP compared with 4.5 cm on prior. There is some mild aneurysmal dilatation of the left common iliac artery as well. There is no evidence of rupture or leakage. Bowel loops are nonobstructed. There is diverticulosis of the sigmoid and descending colon but no evidence of acute articularis. There is no ascites. Bladder is decompressed by a Bateman catheter. IMPRESSION: 1. Stable noncontrast CT of the chest. No acute feature is identified. 2. Minimally increase in size of the infrarenal abdominal aortic aneurysm since examination from March 2022. There is no evidence of leakage or rupture. No acute feature in abdomen or pelvis is identified. 3. Uncomplicated diverticulosis. Dictated by: Dictated on workstation # [id number]
[2023-01-19] MEDS ORDERED: LACTATED RINGERS 1,000 ML IV ONE ×2 (20:30→21:00)
[2023-01-19 22:10] VITALS: BP 145/65
[2023-01-19 22:11] VITALS: BP 145/65
[2023-01-19] MEDS ORDERED: ONDANSETRON 4 MG/2 ML (SDV) Z0FRAN IV PRN (22:45)
[2023-01-20] VITALS (10 sets, daily range): BP systolic 109–156; BP diastolic 58–83
[2023-01-20] MEDS: LACTATED RINGERS 1,000 ML IV SCH ×4 (02:58→18:31)
[2023-01-20] MEDS: CEFEPIME 1,000 MG/NS 50 ML IVPB IV SCH ×6 (02:58→18:31)
[2023-01-20 06:29] LABS: BASOPHILS % (AUTO) 0 % (0-10); EOSINOPHILS # (AUTO) 0.2 10^3/uL (0.0-0.3); EOSINOPHILS % (AUTO) 2 % (0-10); HEMATOCRIT 34 % (35-52); LYMPHOCYTES # (AUTO) 0.3 10^3/uL (1.0-4.0); LYMPHOCYTES % (AUTO) 3 % (12-44); MEAN CORPUSCULAR HEMOGLOBIN 30 pg (25-34); MEAN CORPUSCULAR HGB CONC 32 g/dL (32-36); MEAN CORPUSCULAR VOLUME 92 fL (80-99); MEAN PLATELET VOLUME 9.2 fL (9.0-12.2); MONOCYTES # (AUTO) 0.4 10^3/uL (0.0-1.0); MONOCYTES % (AUTO) 3 % (0-12); NEUTROPHILS # (AUTO) 11.3 10^3/uL (1.8-7.8); NEUTROPHILS % (AUTO) 92 % (42-75); PLATELET COUNT 375 10^3/uL (130-400); WHITE BLOOD COUNT 12.3 10^3/uL (4.3-11.0)
[2023-01-20 06:45] LABS: ALBUMIN 3.3 GM/DL (3.2-4.5)
[2023-01-20 06:46] LABS: CALCIUM 9.2 MG/DL (8.5-10.1)
[2023-01-20 06:47] LABS: TOTAL PROTEIN 6.7 GM/DL (6.4-8.2)
[2023-01-20 06:49] LABS: BILIRUBIN,TOTAL 0.7 MG/DL (0.1-1.0)
[2023-01-20 06:51] LABS: CREATININE SERUM 1.06 MG/DL (0.60-1.30)
[2023-01-20 06:54] LABS: EOSINOPHILS % (MANUAL) 1 %; LYMPHOCYTES % (MANUAL) 2 %; MONOCYTES % (MANUAL) 1 %; NEUTROPHILS % (MANUAL) 96 %; RBC MORPH NORMAL
--- NOTE | 2023-01-20 08:22 | Diagnostic Imaging Report ---
INDICATION: Fever. TECHNIQUE: Single view chest 5:12 AM. CORRELATION STUDY: 01/19/2023 FINDINGS: Heart size normal. Slight prominence of the central hilar structures may reflect underlying pulmonary hypertension. The lungs are clear with no consolidating infiltrate. Calcified granuloma right upper lobe. There is no significant effusion or pneumothorax. IMPRESSION: 1. Negative for acute abnormality of the chest. Dictated by: Dictated on workstation # [id number]
--- NOTE | 2023-01-20 08:43 | History & Physical ---
History of Present Illness History of Present Illness Reason for visit/HPI Pt presented to the ER after having an acute episode of fever and chills. She reports that she was feeling well, had a usual day on Wednesday, had been out with her DTR, went home, had a nap and when she awakened from her nap got up to use the restroom and was acutely ill feeling. She notes having a fever, feeling chilled, and she reported this to her DTR who brought her out to the ER. Eva has an abdominal aneurysm for which she was to have surgery this Wednesday. She apparently had pre-op labs which showed a UTI and she was started on macrodantin on Wednesday morning, she had one dose prior to her feeling acutely worse. Date of Admission Jan 19, 2023 at 21:32 Date Seen by a Provider: Jan 20, 2023 Time Seen by a Provider: 08:30 Attending Physician Foreign Jackson MD Admitting Physician Admitting Physician: Foreign Jackson MD Attending Physician: Foreign Jackson MD Consult Allergies and Home Medications Allergies Coded Allergies: NSAIDS (Non-Steroidal Anti-Inflamma (Verified Allergy, Unknown, 03/21/09) Patient Home Medication List Home Medication List Reviewed: Yes Alendronate Sodium (Alendronate Sodium) 70 Mg Tablet, 70 MG PO WED, (Reported) Entered as Reported by: FRANCESCA VILLARREAL on 06/18/21 0841 Last Action: Held Atorvastatin Calcium (Atorvastatin Calcium) 10 Mg Tablet, 10 MG PO DAILY, (Reported) Entered as Reported by: CHARLIE WATT on 01/20/23 1059 Last Action: Held Cholecalciferol (Vitamin D3) (Vitamin D3) 125 Mcg (5000 Unit) Tablet, 125 MCG PO HS, (Reported) Entered as Reported by: BRIAN MAURO on 11/11/22 1230 Last Action: Held Losartan Potassium (Losartan Potassium) 50 Mg Tablet, 50 MG PO DAILY, (Reported) Entered as Reported by: CHARLIE WATT on 01/20/23 1102 Last Action: Continued Metoprolol Succinate (Metoprolol Succinate) 50 Mg Tab.er.24h, 50 MG PO HS, (Reported) Entered as Reported by: CHARLIE WATT on 01/20/23 1059 Last Action: Continued Nitrofurantoin Monohyd/M-Cryst (Nitrofurantoin [place]-Mcr 100 mg) 100 Mg Capsule, 100 MG PO BID, (Reported) Entered as Reported by: CHARLIE WATT on 01/20/23 1059 Last Action: Held Pantoprazole Sodium (Pantoprazole Sodium) 40 Mg Tablet.dr, 40 MG PO BID, (Reported) Entered as Reported by: BRIAN MAURO on 11/11/22 123 Last Action: Continued Potassium Chloride (Potassium Chloride) 20 Meq Tablet.er, 40 MEQ PO BID, (Repo rted) Entered as Reported by: CHARLIE WATT on 01/20/23 1106 Last Action: Converted Rivaroxaban (Xarelto) 20 Mg Tablet, 20 MG PO DAILY, (Reported) Entered as Reported by: BRIAN MAURO on 11/11/22 123 Last Action: Continued Sucralfate (Sucralfate) 1 Gram Tablet, 1 GM PO HS, (Reported) Entered as Reported by: BRIAN MAURO on 11/11/221229 Last Action: Continued Tramadol HCl (Tramadol HCl) 50 Mg Tablet, 50 MG PO HS, (Reported) Entered as Reported by: SHANTI MANUEL on 11/28/18 1607 Last Action: Continued Discontinued Medications Cephalexin (Cephalexin) 500 Mg Tablet, 500 MG PO QID Discontinued Reason: No Longer Taking Prescribed by: KEERTHI HASSAN on 01/07/23 193 Last Action: Discontinued Fish Oil/Dha/Epa (Fish Oil 1,200 mg Fish Oil) 1,200 Mg-144 Mg-216 Mg Capsule, 1 EACH PO HS, (Reported) Discontinued Reason: No Longer Taking Entered as Reported by: BRIAN MAURO on 11/11/22 123 Last Action: Discontinued Losartan Potassium (Losartan Potassium) 25 Mg Tablet, 25 MG PO DAILY, (Reported) Discontinued Reason: Duplicate Order Entered as Reported by: BRIAN MAURO on 11/11/22 123 Last Action: Discontinued Metoprolol Succinate (Metoprolol Succinate) 25 Mg Tab.er.24h, 25 MG PO HS, (Reported) Discontinued Reason: Duplicate Order Entered as Reported by: BRIAN MAURO on 11/11/22 123 Last Action: Discontinued Multivitamin (Multivitamin) 1 Each Tablet, 1 EACH PO DAILY, (Reported) Discontinued Reason: No Longer Taking Entered as Reported by: BRIAN MAURO on 11/11/22 1230 Last Action: Discontinued Polyethylene Glycol 400 (Visine Dry Eye Relief) 1 % Drops, 1 DROP OP DAILY PRN for DRY EYES, (Reported) Discontinued Reason: No Longer Taking Entered as Reported by: BRIAN MAURO on 11/11/22 1230 Last Action: Discontinued Past [id number] Hx Patient Social History Marrital Status: Living Status: lives with her dtr Employed/Student: retired Tobacco Use?: No Use of E-Cig and/or Vaping dev: No Substance use?: No Alcohol Use?: No Pt feels they are or have been: No Immunizations Up To Date Date of Influenza Vaccine: Jul 03, 2019 First/Initial COVID19 Vaccinat: DECEMBER 2020 Second COVID19 Vaccination Sanjeev: DECEMBER 2020 Tetanus Booster (TDap): Unknown PED Vaccines UTD: Yes Date of Pneumonia Vaccine: Jul 08, 2019 Seasonal Allergies Seasonal Allergies: Yes Current Status status: No status: No Advance Directives: Unable to obtain Communicates: Verbally Primary Language: Sudanese Preferred Spoken Language: Sudanese Is interpretation needed?: No Sensory deficits: Vision impairment, Hearing impairment Implanted or Applied Medical D: None Past Medical History Surgeries: Hysterectomy, Joint Replacement, Orthopedic, Tonsillectomy, Tubal Ligation Asthma Currently Using CPAP: No Currently Using BIPAP: No Aneurysm, Atrial Fibrillation, Coronary Artery Disease, Heart Attack, High Cholesterol, 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 Heart Disease, Hypertension ADMITTED 03/2022 AND DX WITH COVID-19 INFECTION AND NEW ONSET OF ATRIAL FIBRILLATION, AND NSTEMI. CARDIAC CATH 11/11/[address] SIDDIQUI: CONCLUSION: 1. Mild coronary artery disease nonobstructive disease 2. Normal left ventricular end-diastolic pressure 3. 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 I was unable to evaluate the abdominal aorta DISCUSSION AND RECOMMENDATION: Medical therapy is recommended no intervention is needed Review of Systems Constitutional: No chills, No diaphoresis, No fever, No malaise; weakness EENTM: No throat pain Respiratory: No cough, No dyspnea on exertion, No short of breath Cardiovascular: No chest pain, No edema, No palpitations Gastrointestinal: No abdominal pain, No constipation, No diarrhea, No nausea (was nauseated on admission), No vomiting Genitourinary: other (corrales in place) Musculoskeletal: no symptoms reported Skin: no symptoms reported Psychiatric/Neurological: Denies Anxiety, Denies Depressed All Other Systems Reviewed Negative Unless Noted: Yes Physical Exam Vital Signs Vital Signs - First Documented Capillary Refill : Less Than 3 Seconds Height, Weight, BMI Height: 5'6.00" Weight: 167lbs. 6.0oz. [id number]; 29.74 BMI Method:Stated General Appearance: No Apparent Distress, WD/WN HEENT: PERRL/EOMI, Pharynx Normal Neck: Full Range of Motion, Normal Inspection, Non Tender, Supple Respiratory: Chest Non Tender, Lungs Clear, Normal Breath Sounds, No Accessory Muscle Use, No Respiratory Distress Cardiovascular: Regular Rate, Rhythm, Systolic Murmur Gastrointestinal: Normal Bowel Sounds, Non Tender, Soft Rectal: Deferred Back: Normal Inspection, No Vertebral Tenderness Extremity: Normal Capillary Refill, Non Tender, No Calf Tenderness, No Pedal Edema Neurologic/Psychiatric: Alert, Oriented x3, No Motor/Sensory Deficits, Normal Mood/Affect Skin: Normal Color, Warm/Dry Lymphatic: No Adenopathy Assessment/Plan Assessment and Plan Sepsis without lactic acidosis Urinary tract infection Hypertension Chronic Anemia Atrial fibrillation Chronic anticoagulation Leukocytosis GERD Lower Abdominal Aneurysm Sepsis without lactic acidosis due to Urinary tract infection - pt on IV cefepime - will continue with this antibiotic, may decrease later pending outpatient labs/culture report and current blood culture is pending. Hypertension - currently hypotensive - slightly - monitor pressure, may restart home meds once reconciled if bp is elevated. Chronic Anemia - may consider checking iron panel if hgb drops further Atrial fibrillation - rate controlled on xarelto - will restart Leukocytosis - should improve with iv antibiotics. GERD - restart ppi therapy dvt prophylaxis with scd's and xarelto gi prophylaxis with ppi therapy Lower Abdominal Anerysm - family to call and cancel her procedure for now. Admission Diagnosis Sepsis without lactic acidosis Urinary tract infection Hypertension Chronic Anemia Atrial fibrillation Chronic anticoagulation Leukocytosis GERD Lower Abdominal Aneurysm Admission Status: Inpatient Order (span 2 midnights) Reason for Inpatient Admission: inpatient admission for sepsis FOREIGN JACKSON MD Jan 20, 2023 08:43
[2023-01-20] MEDS ORDERED: METO50TA7 PO (10:59)
[2023-01-20] MEDS ORDERED: NITR100C10 PO (10:59)
[2023-01-20] MEDS ORDERED: ATOR10TA66 PO (10:59)
[2023-01-20] MEDS ORDERED: LOSA50TA63 PO (11:02)
[2023-01-20] MEDS ORDERED: POTA-51 PO (11:06)
[2023-01-21] MEDS: LACTATED RINGERS 1,000 ML IV SCH ×5 (00:57→23:02)
[2023-01-21 03:11] VITALS: BP 147/75
[2023-01-21] MEDS: CEFEPIME 1,000 MG/NS 50 ML IVPB IV SCH ×6 (03:11→18:22)
[2023-01-21 05:30] LABS: HEMATOCRIT 30 % (35-52); HEMOGLOBIN 9.7 g/dL (11.5-16.0); MEAN CORPUSCULAR HEMOGLOBIN 30 pg (25-34); MEAN CORPUSCULAR HGB CONC 33 g/dL (32-36); MEAN CORPUSCULAR VOLUME 91 fL (80-99); MEAN PLATELET VOLUME 9.4 fL (9.0-12.2); PLATELET COUNT 310 10^3/uL (130-400); WHITE BLOOD COUNT 7.4 10^3/uL (4.3-11.0)
[2023-01-21 05:54] LABS: ALBUMIN 2.8 GM/DL (3.2-4.5); POTASSIUM 3.1 MMOL/L (3.6-5.0)
[2023-01-21 05:56] LABS: CALCIUM 8.6 MG/DL (8.5-10.1)
[2023-01-21 05:57] LABS: TOTAL PROTEIN 5.9 GM/DL (6.4-8.2)
[2023-01-21 05:59] LABS: BILIRUBIN,TOTAL 0.4 MG/DL (0.1-1.0)
[2023-01-21 06:00] LABS: CREATININE SERUM 0.94 MG/DL (0.60-1.30)
[2023-01-21 07:10] VITALS: BP 137/84
--- NOTE | 2023-01-21 08:45 | Progress Note ---
Subjective Subjective Date Seen by Provider: Jan 21, 2023 Time Seen by Provider: 08:25 Pt was sleeping on eval - she reports that she had a rough night due to excessive urination, she feels like she has to urinate every few minutes. Review of Systems General: No Chills; Fatigue, Malaise HEENT: No Head Aches Pulmonary: Dyspnea; No Cough Cardiovascular: No: Chest Pain, Palpitations Gastrointestinal: No: Nausea, Vomiting Genitourinary: No Dysuria; Frequency Neurological: Weakness; No: Confusion All Other Systems Reviewed All Other Systems Reviewed: Yes Objective Exam Vital Signs Vital Signs Date Time Temp Pulse Resp B/P (MAP) Pulse Ox O2 Delivery O2 Flow Rate FiO2 01/21/23 07:39 85 01/21/23 07:10 36.6 76 18 137/84 (101) 94 Nasal Cannula 2.00 01/21/23 03:11 36.7 75 16 147/75 (99) 95 Nasal Cannula 1.00 01/21/23 01:00 86 01/20/23 23:55 36.6 94 18 135/83 (100) 94 Nasal Cannula 1.00 01/20/23 20:45 Nasal Cannula 3.00 01/20/23 20:02 Nasal Cannula 1.00 01/20/23 19:21 37.0 80 18 113/72 (86) 92 Nasal Cannula 1.00 01/20/23 19:20 37.0 80 18 113/72 (86) 92 Nasal Cannula 1.00 01/20/23 19:00 97 01/20/23 15:33 36.9 69 18 132/71 (91) 95 Nasal Cannula 1.00 01/20/23 12:58 71 01/20/23 11:35 36.4 73 20 109/60 (76) 92 Nasal Cannula 1.00 01/20/23 11:35 36.4 73 20 109/60 (76) 92 Nasal Cannula 1.00 I & O 01/21/23 07:00 Intake Total 2225 ml Output Total 2825 ml Balance -600 ml General Appearance: No Apparent Distress, WD/WN HEENT: PERRL/EOMI, Pharynx Normal Neck: Full Range of Motion, Normal Inspection, Non Tender, Supple Respiratory: Chest Non Tender, Lungs Clear, Normal Breath Sounds, No Accessory Muscle Use, No Respiratory Distress Cardiovascular: Regular Rate, Rhythm, Systolic Murmur Gastrointestinal: Normal Bowel Sounds, Non Tender, Soft Rectal: Deferred Back: Normal Inspection, No Vertebral Tenderness Extremity: Normal Capillary Refill, Non Tender, No Calf Tenderness, Pedal Edema (trace) Neurologic/Psychiatric: Alert, Oriented x3, No Motor/Sensory Deficits, Normal Mood/Affect Skin: Normal Color, Warm/Dry Lymphatic: No Adenopathy Results Lab Laboratory Tests 01/21/23 05:00: White Blood Count 7.4, Red Blood Count 3.24L, Hemoglobin 9.7L, Hematocrit 30L, Mean Corpuscular Volume 91, Mean Corpuscular Hemoglobin 30, Mean Corpuscular Hemoglobin Concent 33, Red Cell Distribution Width 14.6H, Platelet Count 310, Mean Platelet Volume 9.4, Sodium Level 141, Potassium Level 3.1L, Chloride Level 104, Carbon Dioxide Level 25, Anion Gap 12, Blood Urea Nitrogen 8, Creatinine 0.94, Estimat Glomerular Filtration Rate 60, BUN/Creatinine Ratio 9, Glucose Level 116H, Calcium Level 8.6, Corrected Calcium 9.6, Total Bilirubin 0.4, Aspartate Amino Transf (AST/SGOT) 19, Alanine Aminotransferase (ALT/SGPT) 9, Alkaline Phosphatase 72, Total Protein 5.9L, Albumin 2.8L Microbiology 01/19/23 Blood Culture - Preliminary, Resulted No growth 01/19/23 Urine Culture - Final, Complete NO GROWTH Assessment/Plan Assessment/Plan Admission Dx Sepsis without lactic acidosis Urinary tract infection Hypertension Chronic Anemia Atrial fibrillation Chronic anticoagulation Leukocytosis GERD Lower Abdominal Aneurysm Assessment and Plan Sepsis without lactic acidosis Urinary tract infection Hypertension Chronic Anemia Atrial fibrillation Chronic anticoagulation Leukocytosis GERD Lower Abdominal Aneurysm Sepsis without lactic acidosis due to Urinary tract infection - pt on IV cefepime - will continue with this antibiotic, may decrease later pending outpatient labs/culture report and current blood culture is pending. Hypertension - increasing pressure over night - restart home regimen Chronic Anemia - plan on checking iron panel Atrial fibrillation - rate controlled on xarelto - restarted Leukocytosis - should improve with iv antibiotics. GERD - restart ppi therapy dvt prophylaxis with scd's and xarelto gi prophylaxis with ppi therapy Lower Abdominal Anerysm - family to call and cancel her procedure for now. Admission Dx Sepsis without lactic acidosis Urinary tract infection Hypertension Chronic Anemia Atrial fibrillation Chronic anticoagulation Leukocytosis GERD Lower Abdominal Aneurysm Clinical Quality Measures Admission Status Admission Dx Sepsis without lactic acidosis Urinary tract infection Hypertension Chronic Anemia Atrial fibrillation Chronic anticoagulation Leukocytosis GERD Lower Abdominal Aneurysm FOREIGN MARS MD Jan 21, 2023 08:45
[2023-01-21] MEDS ORDERED: KCL 20 MEQ TAB (K-DUR) PO NR (09:00)
[2023-01-21] MEDS: LOSARTAN 50 MG (COZAAR) TAB PO SCH (09:16)
[2023-01-21] MEDS: KCL 20 MEQ TAB (K-DUR) PO SCH ×2 (09:16→20:55)
[2023-01-21] MEDS: PANTOPRAZOLE 40 MG (PROTONIX) TAB PO SCH ×2 (09:16→20:55)
[2023-01-21] MEDS: OXYBUTYNIN (DITROPAN) 5 MG TAB PO SCH ×2 (09:17→20:55)
[2023-01-21] MEDS: RIVAROXABAN 20 MG TABLET (XARELTO) PO SCH (09:17)
[2023-01-21 12:05] VITALS: BP 126/72
[2023-01-21 15:18] VITALS: BP 154/75
[2023-01-21 19:18] VITALS: BP 124/79
[2023-01-21] MEDS: meTOproloL SUCCINATE 50 MG (TOPROL XL) TAB PO SCH (20:57)
[2023-01-21] MEDS: SUCRALFATE 1 GM (CARAFATE) TAB PO SCH (20:57)
[2023-01-21 23:04] VITALS: BP 142/88
[2023-01-22] MEDS: CEFEPIME 1,000 MG/NS 50 ML IVPB IV SCH ×6 (02:28→18:01)
[2023-01-22 03:29] VITALS: BP 152/84
[2023-01-22 06:22] LABS: CALCIUM 8.9 MG/DL (8.5-10.1); POTASSIUM 3.9 MMOL/L (3.6-5.0)
[2023-01-22 07:46] VITALS: BP 156/96
[2023-01-22] MEDS: OXYBUTYNIN (DITROPAN) 5 MG TAB PO SCH ×2 (08:29→20:24)
[2023-01-22] MEDS: LOSARTAN 50 MG (COZAAR) TAB PO SCH (08:29)
[2023-01-22] MEDS: KCL 20 MEQ TAB (K-DUR) PO SCH ×2 (08:29→20:24)
[2023-01-22] MEDS: RIVAROXABAN 20 MG TABLET (XARELTO) PO SCH (08:29)
[2023-01-22] MEDS: PANTOPRAZOLE 40 MG (PROTONIX) TAB PO SCH ×2 (08:29→20:24)
--- NOTE | 2023-01-22 08:39 | Progress Note ---
Subjective Subjective Date Seen by Provider: Jan 22, 2023 Time Seen by Provider: 08:45 Pt reports that she is feeling better - she reports that she is urinating frequently, but does not have any pain with urination. She denies chest pain, shortness of breath. Review of Systems General: No Chills; Fatigue, Malaise HEENT: No Head Aches Pulmonary: Dyspnea; No Cough Cardiovascular: No: Chest Pain, Palpitations Gastrointestinal: No: Nausea, Vomiting Genitourinary: No Dysuria; Frequency Neurological: Weakness; No: Confusion All Other Systems Reviewed All Other Systems Reviewed: Yes Objective Exam Vital Signs Vital Signs Date Time Temp Pulse Resp B/P (MAP) Pulse Ox O2 Delivery O2 Flow Rate FiO2 01/22/23 07:46 36.4 83 16 156/96 (116) 93 Nasal Cannula 1.00 01/22/23 07:00 76 01/22/23 03:29 36.6 79 20 152/84 (106) 94 Room Air 01/22/23 01:26 92 01/21/23 23:04 36.3 98 18 142/88 (106) 95 Room Air 01/21/23 20:50 Nasal Cannula 1.00 01/21/23 19:40 74 01/21/23 19:18 36.6 79 18 124/79 (94) 94 Room Air 01/21/23 15:18 37.0 86 17 154/75 (101) 94 Nasal Cannula 1.00 01/21/23 12:48 89 01/21/23 12:05 36.2 81 18 126/72 (90) 94 Nasal Cannula 2.00 I & O 01/22/23 07:00 Intake Total 2660 ml Output Total 2800 ml Balance -140 ml General Appearance: No Apparent Distress, WD/WN HEENT: PERRL/EOMI, Pharynx Normal Neck: Full Range of Motion, Normal Inspection, Non Tender, Supple Respiratory: Chest Non Tender, Lungs Clear, Normal Breath Sounds, No Accessory Muscle Use, No Respiratory Distress Cardiovascular: Regular Rate, Rhythm, Systolic Murmur Gastrointestinal: Normal Bowel Sounds, Non Tender, Soft Rectal: Deferred Back: Normal Inspection, No Vertebral Tenderness Extremity: Normal Capillary Refill, Non Tender, No Calf Tenderness, Pedal Edema (trace) Neurologic/Psychiatric: Alert, Oriented x3, No Motor/Sensory Deficits, Normal Mood/Affect Skin: Normal Color, Warm/Dry Lymphatic: No Adenopathy Results Lab Laboratory Tests 01/22/23 05:04: Sodium Level 142, Potassium Level 3.9, Chloride Level 105, Carbon Dioxide Level 29, Anion Gap 8, Blood Urea Nitrogen 9, Creatinine 1.00, Estimat Glomerular Filtration Rate 56, BUN/Creatinine Ratio 9, Glucose Level 114H, Calcium Level 8.9 Microbiology 01/19/23 Blood Culture - Preliminary, Resulted No growth 01/19/23 Urine Culture - Final, Complete NO GROWTH Assessment/Plan Assessment/Plan Admission Dx Sepsis without lactic acidosis Urinary tract infection Hypertension Chronic Anemia Atrial fibrillation Chronic anticoagulation Leukocytosis GERD Lower Abdominal Aneurysm Assessment and Plan Sepsis without lactic acidosis Urinary tract infection Hypertension Chronic Anemia Atrial fibrillation Chronic anticoagulation Leukocytosis GERD Lower Abdominal Aneurysm Sepsis without lactic acidosis due to Urinary tract infection - pt on IV cefepime - will continue with this antibiotic. Hypertension - improved on home regimen Chronic Anemia - Iron panel stable, does not need IV iron right now Atrial fibrillation - rate controlled and pt is on xarelto Leukocytosis - improved on IV antibiotics. GERD - restarted ppi therapy dvt prophylaxis with scd's and xarelto gi prophylaxis with ppi therapy Lower Abdominal Aneurysm - family to call and cancel her procedure for now. Admission Dx Sepsis without lactic acidosis Urinary tract infection Hypertension Chronic Anemia Atrial fibrillation Chronic anticoagulation Leukocytosis GERD Lower Abdominal Aneurysm Clinical Quality Measures Admission Status Admission Dx Sepsis without lactic acidosis Urinary tract infection Hypertension Chronic Anemia Atrial fibrillation Chronic anticoagulation Leukocytosis GERD Lower Abdominal Aneurysm FOREIGN MARS MD Jan 22, 2023 08:39
[2023-01-22 12:00] VITALS: BP 129/93
[2023-01-22 15:56] VITALS: BP 141/99
[2023-01-22 19:45] VITALS: BP 130/81
[2023-01-22] MEDS: meTOproloL SUCCINATE 50 MG (TOPROL XL) TAB PO SCH (20:24)
[2023-01-22] MEDS: SUCRALFATE 1 GM (CARAFATE) TAB PO SCH (20:24)
[2023-01-23] VITALS: BP 127/74
[2023-01-23] MEDS: CEFEPIME 1,000 MG/NS 50 ML IVPB IV SCH ×4 (03:28→10:08)
[2023-01-23 03:45] VITALS: BP 124/83
[2023-01-23 06:05] LABS: HEMATOCRIT 31 % (35-52); HEMOGLOBIN 10.1 g/dL (11.5-16.0); MEAN CORPUSCULAR HEMOGLOBIN 30 pg (25-34); MEAN CORPUSCULAR HGB CONC 33 g/dL (32-36); MEAN CORPUSCULAR VOLUME 93 fL (80-99); MEAN PLATELET VOLUME 9.5 fL (9.0-12.2); PLATELET COUNT 300 10^3/uL (130-400); WHITE BLOOD COUNT 5.4 10^3/uL (4.3-11.0)
[2023-01-23 06:27] LABS: CALCIUM 9.3 MG/DL (8.5-10.1); CREATININE SERUM 1.08 MG/DL (0.60-1.30); POTASSIUM 4.5 MMOL/L (3.6-5.0)
[2023-01-23 08:01] VITALS: BP 103/57
--- NOTE | 2023-01-23 08:41 | Discharge Summary ---
Diagnosis/Chief Complaint Date of Admission Jan 19, 2023 at 21:32 Date of Discharge 01/23/23 Discharge Date: Jan 23, 2023 Discharge Time: 10:00 Admission Diagnosis Admission Diagnosis Sepsis without lactic acidosis Urinary tract infection Hypertension Chronic Anemia Atrial fibrillation Chronic anticoagulation Leukocytosis GERD Lower Abdominal Aneurysm Discharge Diagnosis Sepsis without lactic acidosis Urinary tract infection Hypertension Chronic Anemia Atrial fibrillation Chronic anticoagulation Leukocytosis GERD Lower Abdominal Aneurysm Reason Hospital Visit Pt presented to the ER after having an acute episode of fever and chills. She reports that she was feeling well, had a usual day on Wednesday, had been out with her DTR, went home, had a nap and when she awakened from her nap got up to use the restroom and was acutely ill feeling. She notes having a fever, feeling chilled, and she reported this to her DTR who brought her out to the ER. Eva has an abdominal aneurysm for which she was to have surgery this Wednesday. She apparently had pre-op labs which showed a UTI and she was started on macrodantin on Wednesday morning, she had one dose prior to her feeling acutely worse. Discharge Summary Discharge Physical Examination Allergies: Coded Allergies: NSAIDS (Non-Steroidal Anti-Inflamma (Verified Allergy, Unknown, 03/21/09) Vitals & I&Os Vital Signs Date Time Temp Pulse Resp B/P (MAP) Pulse Ox O2 Delivery O2 Flow Rate FiO2 01/23/23 08:01 36.1 80 20 103/57 (72) 96 Nasal Cannula 1.00 General Appearance: Alert, Oriented X3, Cooperative, No Acute Distress HEENT: Atraumatic, PERRLA, Mucous Memb Moist/[place] Respiratory: Clear to Auscultation, Normal Air Movement Cardiovascular: Regular Rate Abdominal: Normal Bowel Sounds, Soft, No Tenderness Extremities: No Clubbing, No Cyanosis Skin: No Breakdown Neuro: Normal Speech Psych/Mental Status: Mental Status NL, Mood NL Hospital Course Sepsis without lactic acidosis Urinary tract infection Hypertension Chronic Anemia Atrial fibrillation Chronic anticoagulation Leukocytosis GERD Lower Abdominal Aneurysm Sepsis without lactic acidosis due to Urinary tract infection - pt on IV cefepime - changed to augmentin on discharge Hypertension - improved on home regimen Chronic Anemia - Iron panel stable, does not need IV iron right now Atrial fibrillation - rate controlled and pt is on xarelto Leukocytosis - improved on IV antibiotics. - GERD - restarted ppi therapy dvt prophylaxis with scd's and xarelto gi prophylaxis with ppi therapy Lower Abdominal Aneurysm - family to call and cancel her procedure for now. Pending Labs Laboratory Tests 01/23/23 05:15: White Blood Count 5.4, Red Blood Count 3.34, Hemoglobin 10.1, Hematocrit 31, Mean Corpuscular Volume 93, Mean Corpuscular Hemoglobin 30, Mean Corpuscular Hemoglobin Concent 33, Red Cell Distribution Width 14.8, Platelet Count 300, Mean Platelet Volume 9.5, Sodium Level 143, Potassium Level 4.5, Chloride Level 107, Carbon Dioxide Level 28, Anion Gap 8, Blood Urea Nitrogen 13, Creatinine 1.08, Estimat Glomerular Filtration Rate 51, BUN/Creatinine Ratio 12, Glucose Level 107, Calcium Level 9.3 Discharge Condition at discharge improved Instructions to patient/family Please see electronic discharge instructions given to patient. Discharge Medications Reviewed and agree with Discharge Medication list on patient's Discharge Instruction sheet FOREIGN MARS MD Jan 23, 2023 08:40
[2023-01-23] MEDS ORDERED: AMOX-355 PO (08:48)
[2023-01-23] MEDS ORDERED: L.AC1CAP6 PO (08:48)
[2023-01-23] MEDS ORDERED: OXYB5TAB13 PO (08:48)
[2023-01-23] MEDS: RIVAROXABAN 20 MG TABLET (XARELTO) PO SCH (08:50)
[2023-01-23] MEDS: OXYBUTYNIN (DITROPAN) 5 MG TAB PO SCH (08:50)
[2023-01-23] MEDS: KCL 20 MEQ TAB (K-DUR) PO SCH (08:50)
[2023-01-23] MEDS: LOSARTAN 50 MG (COZAAR) TAB PO SCH (08:50)
[2023-01-23] MEDS: PANTOPRAZOLE 40 MG (PROTONIX) TAB PO SCH (08:50)
--- NOTE | 2023-01-23 08:54 | Discharge Inst-Simple/Standard ---
Discharge Inst-Standard Reconcile Patient Problems Problems Reviewed?: Yes Discharge Medications New, Converted or Re-Newed RX: Transmitted to Pharmacy Patient Instructions/Follow Up Plan of Care/Instructions/FU: 1-2 WEEKS WITH [facility] CALL TO DR. MERCADO'S OFFICE WEDNESDAY TO RESCHEDULE YOUR APPT FOR SURGERY Activity as Tolerated: Yes Discharge Diet: Regular Diet Health Concerns: URINARY TRACT INFECTION AORTIC ANEURYSM HYPERTESION WEAKNESS Return to The Hospital For: ANY CONCERN FOR WORSENING ILLNESS, RECURRENT UTI, OR OTHER LIFETHREATENING ILLNESSES OR INJURIES Medication List: Active Scripts Active Probiotic (L.acidoph & Paracasei,B.lactis) 10 Billion Cell Capsule 1 Each PO TID Augmentin 500-125 Tablet (Amoxicillin/Potassium Clav) 500 Mg-125 Mg Tablet 1 Each PO TID 7 Days Oxybutynin Chloride 5 Mg Tablet 5 Mg PO BID Reported Potassium Chloride 20 Meq Tablet.er 40 Meq PO BID FILLED 01-19-2023 #30/6 DAY SUPPLY TAKES 2 (20MEQ) TWICE DAILY X 2 DAYS Losartan Potassium 50 Mg Tablet 50 Mg PO DAILY Atorvastatin Calcium 10 Mg Tablet 10 Mg PO DAILY Metoprolol Succinate 50 Mg Tab.er.24h 50 Mg PO HS Nitrofurantoin [place]-Mcr 100 mg (Nitrofurantoin Monohyd/M-Cryst) 100 Mg Capsule 100 Mg PO BID FILLED 01-19-2023 #14/7 DAY SUPPLY Xarelto (Rivaroxaban) 20 Mg Tablet 20 Mg PO DAILY Pantoprazole Sodium 40 Mg Tablet.dr 40 Mg PO BID Vitamin D3 (Cholecalciferol (Vitamin D3)) 125 Mcg (5000 Unit) Tablet 125 Mcg PO HS Sucralfate 1 Gram Tablet 1 Gm PO HS Alendronate Sodium 70 Mg Tablet 70 Mg PO FRI Tramadol HCl 50 Mg Tablet 50 Mg PO HS Lab results: Laboratory Tests Test 01/23/23 05:15 Range/Units White Blood Count 5.4 4.3-11.0 10^3/uL Red Blood Count 3.34 L 3.80-5.11 10^6/uL Hemoglobin 10.1 L 11.5-16.0 g/dL Hematocrit 31 L 35-52 % Mean Corpuscular Volume 93 80-99 fL Mean Corpuscular Hemoglobin 30 25-34 pg Mean Corpuscular Hemoglobin Concent 33 32-36 g/dL Red Cell Distribution Width 14.8 H 10.0-14.5 % Platelet Count 300 130-400 10^3/uL Mean Platelet Volume 9.5 9.0-12.2 fL Sodium Level 143 135-145 MMOL/L Potassium Level 4.5 3.6-5.0 MMOL/L Chloride Level 107 98-107 MMOL/L Carbon Dioxide Level 28 21-32 MMOL/L Anion Gap 8 5-14 MMOL/L Blood Urea Nitrogen 13 7-18 MG/DL Creatinine 1.08 0.60-1.30 MG/DL Estimat Glomerular Filtration Rate 51 BUN/Creatinine Ratio 12 Glucose Level 107 H 70-105 MG/DL Calcium Level 9.3 8.5-10.1 MG/DL My orders: Orders - FOREIGN MARS MD Attending Discharge Inpt/Inobs (01/23/23 08:41) FOREIGN MARS MD Jan 23, 2023 08:54
[2023-01-23 10:30] VITALS: BP 103/57
== END 2023-01-23 10:50 | disposition home or self-care (01) | DRG 872 ==
LOC: EDUNIT# 18:08 → ER 18:10 → 4TH 21:32
PROVIDERS: ADMIT Family Medicine; ATTEND Family Medicine
DX: A41.9 Sepsis, unspecified organism (principal); N39.0 Urinary tract infection, site not specified; I10 Essential (primary) hypertension; D64.9 Anemia, unspecified; I48.91 Unspecified atrial fibrillation; K21.9 Gastro-esophageal reflux disease without esophagitis; I71.40 Abdominal aortic aneurysm, without rupture, unspecified; I25.10 Atherosclerotic heart disease of native coronary artery without angina pectoris; I25.2 Old myocardial infarction; E78.00 Pure hypercholesterolemia, unspecified; Z79.899 Other long term (current) drug therapy; Z79.01 Long term (current) use of anticoagulants; Z86.16 Personal history of COVID-19; Z20.822 Contact with and (suspected) exposure to COVID-19
CPT/HCPCS: 36415; 51702; 71045; 71250; 74176; 80048; 80053; 81000; 82150; 82550; 82553; 82728; 83540; 83550; 83605; 83690; 83735; 83880; 84484; 85007; 85027; 85610; 85652; 85730; 86141; 87040; 87088; 87636; 93005; 93041; 94760

== ENCOUNTER 2023-02-01 15:37 | Emergency (ER) | payer MEDICARE ==
[~2023-02-01] VITALS: Ht 162.6 cm; Wt 78.0 kg
[~2023-02-01 15:37] MED LIST changes: +AMOX-355 PO; +ATOR10TA66 PO; +L.AC1CAP6 PO; +NITR100C10 PO; +OXYB5TAB13 PO; +POTA-51 PO
[2023-02-01 16:28] LABS: BASOPHILS % (AUTO) 1 % (0-10); EOSINOPHILS % (AUTO) 14 % (0-10); HEMATOCRIT 34 % (35-52); LYMPHOCYTES # (AUTO) 2.3 10^3/uL (1.0-4.0); LYMPHOCYTES % (AUTO) 30 % (12-44); MEAN CORPUSCULAR HEMOGLOBIN 30 pg (25-34); MEAN CORPUSCULAR HGB CONC 32 g/dL (32-36); MEAN CORPUSCULAR VOLUME 93 fL (80-99); MEAN PLATELET VOLUME 10.1 fL (9.0-12.2); MONOCYTES # (AUTO) 0.6 10^3/uL (0.0-1.0); MONOCYTES % (AUTO) 8 % (0-12); NEUTROPHILS # (AUTO) 3.6 10^3/uL (1.8-7.8); NEUTROPHILS % (AUTO) 47 % (42-75); PLATELET COUNT 253 10^3/uL (130-400); WHITE BLOOD COUNT 7.5 10^3/uL (4.3-11.0)
[2023-02-01 16:29] LABS: POTASSIUM 4.3 MMOL/L (3.6-5.0)
[2023-02-01 16:30] LABS: CALCIUM 9.4 MG/DL (8.5-10.1)
[2023-02-01 16:35] LABS: CREATININE SERUM 1.24 MG/DL (0.60-1.30)
--- NOTE | 2023-02-01 16:41 | Diagnostic Imaging Report ---
INDICATION: Shortness of breath and cough. Frontal chest obtained at 4:17 p.m. and compared to 01/20/2023. FINDINGS: Heart and mediastinal silhouette are normal in appearance except for incidental hiatal hernia. There is no focal infiltrate or pneumothorax or pleural fluid. Calcified granuloma in right upper lobe is stable. IMPRESSION: Moderate-sized hiatal hernia. No focal infiltrate or pneumothorax or pleural fluid. Dictated by: Dictated on workstation # [id number]
--- NOTE | 2023-02-01 16:53 | ED Respiratory ---
General Chief Complaint: Respiratory Problems Stated Complaint: IRR HEART RATE/SOA Nursing Triage Note: PT AMB TO ED BY POV WITH DAUGHTER WITH C/O SOB, COUGH AND WEAKNESS BEGINNING WEDNESDAY. PT DENIES CP, FEVER, N/V/D, OR ANY URINARY SX AT THIS TIME. Source: patient, family Exam Limitations: no limitations History of Present Illness Date Seen by Provider: February 01, 2023 Time Seen by Provider: 16:10 Initial Comments Patient is a 82-year-old female who presents to the emergency room with a chief complaint of feeling short of breath having a mild cough and feeling generally weak and not able to get out of bed over the weekend. Patient states that she feels a little bit better today. She has had no chest pain or abdominal pain. No fever. No nausea, vomiting or diarrhea. She is concerned that she had sepsis from a urinary tract infection about 2 weeks ago and is afraid that the infection may be back. She denies dysuria, urgency or frequency. No wounds. No headache. No runny nose or congestion. She states she took all of her antibiotics as directed. She is patiently waiting repair of abdominal aortic aneurysm in 1 to 2 weeks. Patient wears oxygen at night only but her daughter states that she had to wear it during the day on Wednesday and Wednesday. Timing/Duration: other (2-3 days) Severity: moderate Modifying Factors: Improves With Albuterol Inhaler Associated Symptoms: cough, shortness of breath, wheezing, other (weakness) Allergies and Home Medications Allergies Coded Allergies: NSAIDS (Non-Steroidal Anti-Inflamma (Verified Allergy, Unknown, 03/21/09) Patient Home Medication List Home Medication List Reviewed: Yes Alendronate Sodium (Alendronate Sodium) 70 Mg Tablet, 70 MG PO WED, (Reported) Entered as Reported by: FRANCESCA VILLARREAL on 06/18/21 0841 Amoxicillin/Potassium Clav (Augmentin 500-125 Tablet) 500 Mg-125 Mg Tablet, 1 EACH PO TID Prescribed by: FOREIGN MARS on 01/23/23 0848 Atorvastatin Calcium (Atorvastatin Calcium) 10 Mg Tablet, 10 MG PO DAILY, (Reported) Entered as Reported by: CHARLIE WATT on 01/20/23 1059 Cholecalciferol (Vitamin D3) (Vitamin D3) 125 Mcg (5000 Unit) Tablet, 125 MCG PO HS, (Reported) Entered as Reported by: BRIAN MAURO on 11/11/22 1230 L.acidoph & Paracasei,B.lactis (Probiotic) 10 Billion Cell Capsule, 1 EACH PO TID Prescribed by: FOREIGN MARS on 01/23/23 0848 Losartan Potassium (Losartan Potassium) 50 Mg Tablet, 50 MG PO DAILY, (Reported) Entered as Reported by: CHALRIE WATT on 01/20/23 1102 Metoprolol Succinate (Metoprolol Succinate) 50 Mg Tab.er.24h, 50 MG PO HS, (Reported) Entered as Reported by: CHARLIE WATT on 01/20/23 1059 Oxybutynin Chloride (Oxybutynin Chloride) 5 Mg Tablet, 5 MG PO BID Prescribed by: FOREIGN MARS on 01/23/23 0848 Pantoprazole Sodium (Pantoprazole Sodium) 40 Mg Tablet.dr, 40 MG PO BID, (Reported) Entered as Reported by: BRIAN MAURO on 11/11/22 1230 Potassium Chloride (Potassium Chloride) 20 Meq Tablet.er, 40 MEQ PO BID, (Reported) Entered as Reported by: CHARLIE WATT on 01/20/23 1106 Rivaroxaban (Xarelto) 20 Mg Tablet, 20 MG PO DAILY, (Reported) Entered as Reported by: BRIAN MAURO on 11/11/22 1233 Sucralfate (Sucralfate) 1 Gram Tablet, 1 GM PO HS, (Reported) Entered as Reported by: BRIAN MAURO on 11/11/22 1230 Tramadol HCl (Tramadol HCl) 50 Mg Tablet, 50 MG PO HS, (Reported) Entered as Reported by: SHANTI MANUEL on 11/28/18 1607 Review of Systems Review of Systems Constitutional: see HPI EENTM: no symptoms reported Respiratory: cough, short of breath Cardiovascular: no symptoms reported Gastrointestinal: no symptoms reported Genitourinary: no symptoms reported Musculoskeletal: no symptoms reported Skin: no symptoms reported Psychiatric/Neurological: Weakness Past Exvudmn-Cdxhis-Sifvlx Hx Patient Social History Tobacco Use?: No Use of E-Cig and/or Vaping dev: No Substance use?: No Alcohol Use?: No Pt feels they are or have been: No Immunizations Up To Date Tetanus Booster (TDap): Unknown PED Vaccines UTD: Yes Influenza Vaccine Up-to-Date: No; Not Current First/Initial COVID19 Vaccinat: DECEMBER 2020 Second COVID19 Vaccination Sanjeev: DECEMBER 2020 Third COVID19 Vaccination Date: DECEMBER 2020 Seasonal Allergies Seasonal Allergies: Yes Past Medical History Surgery/Hospitalization HX: HTN, A FIB, GERD, ANEURYSM, BILAT TKR Surgeries: Yes (BILATERAL KNEE REPLACEMENT) Hysterectomy, Joint Replacement, Orthopedic, Tonsillectomy, Tubal Ligation Respiratory: Yes (hx. of asthma yrs ago.; wears 02@1-2 at nite, COUGH) Asthma Currently Using CPAP: No Currently Using BIPAP: No Cardiac: Yes (CARDIAC CATH 11/11/22-MILD NON-OBSTRUCTIVE DISEASE; AAA ; ) Aneurysm, Atrial Fibrillation, Coronary Artery Disease, Heart Attack, High Cholesterol, Hypertension Neurological: No Reproductive Disorders: No LOGGER ALL ROUND History: Tubal Ligation, Menopausal Sexually Transmitted Disease: No HIV/AIDS: No Genitourinary: No Gastrointestinal: Yes (CHRONIC NAUSEA) Gastroesophageal Reflux, Diverticulosis, Hiatal Hernia, Ulcer Musculoskeletal: Yes (LEFT SHOULDER PAIN, CHRONIC GENERALIZED PAIN/CHRONIC NECK PAIN;BILAT TKR) Arthritis, Chronic Back Pain Endocrine: No HEENT: Yes (GLASSES, UPPER DENTURES) Loss of Vision: Denies Hearing Impairment: Denies Cancer: No Psychosocial: No Integumentary: No Blood Disorders: No Adverse Reaction/Blood Tranf: No (N/A) Family Medical History Patient reports no known family medical history. Heart Disease, Hypertension ADMITTED 03/2022 AND DX WITH COVID-19 INFECTION AND NEW ONSET OF ATRIAL FIBRILLATION, AND NSTEMI. CARDIAC CATH 11/11/[address] SIDDIQUI: CONCLUSION: 1. Mild coronary artery disease nonobstructive disease 2. Normal left ventricular end-diastolic pressure 3. 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 I was unable to evaluate the abdominal aorta DISCUSSION AND RECOMMENDATION: Medical therapy is recommended no intervention is needed Physical Exam Vital Signs - First Documented 02/01/23 15:48 Temp 36.9 Pulse 64 Resp 14 B/P (MAP) 126/76 (93) Pulse Ox 94 O2 Delivery Room Air Capillary Refill : Less Than 3 Seconds Height: 5'6.00" Weight: 167lbs. 6.0oz. 75.334369ho; 29.00 BMI Method:Stated General Appearance: WD/WN, no apparent distress Eyes: Bilateral Eye Normal Inspection, Bilateral Eye PERRL, Bilateral Eye EOMI HEENT: PERRL/EOMI Respiratory: crackles (occ crackle left posterior base); No wheezing Cardiovascular: regular rate, rhythm Gastrointestinal: normal bowel sounds, non tender, soft Extremities: normal range of motion, normal inspection, no pedal edema Neurologic/Psychiatric: alert, normal mood/affect, oriented x 3 Skin: normal color, warm/dry Progress/Results/Core Measures Suspected Sepsis SIRS Temperature: Pulse: 64 Respiratory Rate: 14 Laboratory Tests 02/01/23 15:54: White Blood Count 7.5 Blood Pressure 126 /76 Mean: 93 Laboratory Tests 02/01/23 15:54: Creatinine 1.24, Platelet Count 253 Results/Orders Lab Results Laboratory Tests Test 02/01/23 15:54 02/01/23 16:45 Range/Units White Blood Count 7.5 4.3-11.0 10^3/uL Red Blood Count 3.64 L 3.80-5.11 10^6/uL Hemoglobin 11.0 L 11.5-16.0 g/dL Hematocrit 34 L 35-52 % Mean Corpuscular Volume 93 80-99 fL Mean Corpuscular Hemoglobin 30 25-34 pg Mean Corpuscular Hemoglobin Concent 32 32-36 g/dL Red Cell Distribution Width 15.2 H 10.0-14.5 % Platelet Count 253 130-400 10^3/uL Mean Platelet Volume 10.1 9.0-12.2 fL Immature Granulocyte % (Auto) 0 % Neutrophils (%) (Auto) 47 42-75 % Lymphocytes (%) (Auto) 30 12-44 % Monocytes (%) (Auto) 8 0-12 % Eosinophils (%) (Auto) 14 H 0-10 % Basophils (%) (Auto) 1 0-10 % Neutrophils # (Auto) 3.6 1.8-7.8 10^3/uL Lymphocytes # (Auto) 2.3 1.0-4.0 10^3/uL Monocytes # (Auto) 0.6 0.0-1.0 10^3/uL Eosinophils # (Auto) 1.0 H 0.0-0.3 10^3/uL Basophils # (Auto) 0.0 0.0-0.1 10^3/uL Immature Granulocyte # (Auto) 0.0 0.0-0.1 10^3/uL Neutrophils % (Manual) 45 % Lymphocytes % (Manual) 42 % Monocytes % (Manual) 3 % Eosinophils % (Manual) 10 % Blood Morphology Comment NORMAL Sodium Level 140 135-145 MMOL/L Potassium Level 4.3 3.6-5.0 MMOL/L Chloride Level 107 98-107 MMOL/L Carbon Dioxide Level 22 21-32 MMOL/L Anion Gap 11 5-14 MMOL/L Blood Urea Nitrogen 17 7-18 MG/DL Creatinine 1.24 0.60-1.30 MG/DL Estimat Glomerular Filtration Rate 43 BUN/Creatinine Ratio 14 Glucose Level 115 H 70-105 MG/DL Calcium Level 9.4 8.5-10.1 MG/DL Urine Color YELLOW Urine Clarity CLEAR Urine pH 6.0 5-9 Urine Specific [place] 1.010 L 1.016-1.022 Urine Protein NEGATIVE NEGATIVE Urine Glucose (UA) NEGATIVE NEGATIVE Urine Ketones NEGATIVE NEGATIVE Urine Nitrite NEGATIVE NEGATIVE Urine Bilirubin NEGATIVE NEGATIVE Urine Urobilinogen 0.2 < = 1.0 MG/DL Urine Leukocyte Esterase TRACE H NEGATIVE Urine RBC (Auto) NEGATIVE NEGATIVE Urine RBC NONE /HPF Urine WBC RARE /HPF Urine Squamous Epithelial Cells 2-5 /HPF Urine Crystals NONE /LPF Urine Bacteria TRACE /HPF Urine Casts NONE /LPF Urine Mucus NEGATIVE /LPF Urine Culture Indicated NO My Orders Orders - LAURA HATCH MD Ed Iv/Invasive Line Start (02/01/23 16:20) Basic Metabolic Panel (02/01/23 16:20) Cbc With Automated Diff (02/01/23 16:20) Chest 1 View, Ap/Pa Only (02/01/23 16:20) Ua Culture If Indicated (02/01/23 16:20) Manual Differential (02/01/23 15:54) Vital Signs/I&O 02/01/23 02/01/23 15:48 15:48 Temp 36.9 Pulse 64 Resp 14 B/P (MAP) 126/76 (93) Pulse Ox 94 O2 Delivery Room Air Room Air Capillary Refill : Less Than 3 Seconds Blood Pressure Mean: 93 Progress Note : Time: 17:27 Progress Note Patient seen and evaluated by me. Evaluation today includes physical exam, CBC, basic metabolic panel, urinalysis. Pertinent physical exam includes well- developed well-nourished elderly female in no acute distress. Abdomen is soft and nontender, bowel sounds are present. No significant lower extremity edema. Heart is regular, lungs demonstrate very mild crackles versus quiet expiratory wheeze in the left base.. Room air oxygen saturations are 94% no increased work of breathing or respiratory distress/tachypnea. Differential diagnosis based on history and physical, bronchitis, pneumonia. Labs reviewed by me, CBC is normal, basic metabolic panel is normal and urinalysis does not demonstrate any sign of infection. Patient is monitored in the emergency department. No deterioration in condition during her stay. I have reviewed the labs with the patient and her daughter who is at the bedside. No indication at this time for antibiotics. Patient will be discharged home with follow-up with her primary care and her cardiothoracic surgeon as scheduled. Return precautions provided in both verbal and written format. Departure Impression Primary Impression: Cough Qualified Codes: R05.9 - Cough, unspecified Disposition: 01 HOME, SELF-CARE Condition: Stable Departure-Patient Inst. Decision time for Depature: 17:30 Referrals: FOREIGN MARS MD (PCP/Family) Primary Care Physician Patient Instructions: Cough in Adults Add. Discharge Instructions: Continue your daily medications as prescribed. You can use [id number] Mucinex or Robitussin as needed for cough/phlegm/congestion. If you develop a fever, worsening cough or shortness of breath, please return to the emergency department for reevaluation. Copy Copies To 1: FOREIGN MARS MD, KATHRYN M MD February 01, 2023 16:53
[2023-02-01 16:56] LABS: BILIRUBIN,URINE NEGATIVE (NEGATIVE); CLARITY,URINE CLEAR; COLOR,URINE YELLOW; GLUCOSE, URINE (UA) NEGATIVE (NEGATIVE); KETONES,URINE NEGATIVE (NEGATIVE); LEUKOCYTE ESTERASE ,URINE TRACE (NEGATIVE); NITRITE,URINE NEGATIVE (NEGATIVE); PROTEIN,URINE NEGATIVE (NEGATIVE)
[2023-02-01 17:04] LABS: WBC,URINE RARE /HPF
[2023-02-01 17:05] LABS: BACTERIA,URINE TRACE /HPF
[2023-02-01 17:12] LABS: EOSINOPHILS % (MANUAL) 10 %; LYMPHOCYTES % (MANUAL) 42 %; MONOCYTES % (MANUAL) 3 %; NEUTROPHILS % (MANUAL) 45 %; RBC MORPH NORMAL
[2023-02-01 17:37] VITALS: BP 122/69
== END 2023-02-01 17:37 | disposition home or self-care (01) ==
LOC: EDUNIT# 15:37 → ER 15:40
DX: R05.9 Cough, unspecified (principal); J45.909 Unspecified asthma, uncomplicated; Z99.81 Dependence on supplemental oxygen; Z86.16 Personal history of COVID-19
CPT/HCPCS: 36415; 71045; 80048; 81000; 85007; 85027

== ENCOUNTER → 2023-02-22 | Outpatient (CLI) | payer MEDICARE ==
[2023-02-22 09:07] LABS: BILIRUBIN,URINE NEGATIVE (NEGATIVE); CLARITY,URINE CLOUDY; COLOR,URINE YELLOW; GLUCOSE, URINE (UA) NEGATIVE (NEGATIVE); KETONES,URINE NEGATIVE (NEGATIVE); LEUKOCYTE ESTERASE ,URINE 1+ (NEGATIVE); NITRITE,URINE NEGATIVE (NEGATIVE); PROTEIN,URINE NEGATIVE (NEGATIVE)
[2023-02-22 09:15] LABS: BACTERIA,URINE FEW /HPF
== END ==
LOC: LAB 08:50
PROVIDERS: ATTEND Thoracic Surgery (Cardiothoracic Vascular Surgery)
DX: Z01.810 Encounter for preprocedural cardiovascular examination (principal); N39.0 Urinary tract infection, site not specified; I71.43 Infrarenal abdominal aortic aneurysm, without rupture
CPT/HCPCS: 81000; 87077; 87088

== ENCOUNTER 2023-02-26 15:05 | Emergency (ER) | payer MEDICARE ==
[~2023-02-26] VITALS: Ht 167 cm; Wt 80.0 kg
--- NOTE | 2023-02-26 15:27 | ED Fever ---
History of Present Illness General Chief Complaint: Post OP Complications/Pain Stated Complaint: FEVER Nursing Triage Note: PT TO [facility] BY [facility] WITH C/O FEVER AND NAUSEA. PT HAD AAA REPAIR AT [facility] LAST WEDNESDAY Source: patient, family, EMS Exam Limitations: no limitations History of Present Illness Date Seen by Provider: Feb 26, 2023 Time Seen by Provider: 15:06 Initial Comments 82-year-old female with a PMH of afib on Xarelto (she did take her meds today) that had a AAA repair done at [facility] on 02/24 coming in via EMS due to fever. Her temperature was 100.7 per EMS on their thermometer. Fever for her started this morning. Her pain in her abdomen has been good. She had a very small bowel movement today, not passing much flatus. Started having nausea and vomiting on arrival to our ER. She denies any real chest pain, significant shortness of breath, or any other concerns. Allergies and Home Medications Allergies Coded Allergies: NSAIDS (Non-Steroidal Anti-Inflamma (Verified Allergy, Unknown, 03/21/09) Patient Home Medication List Home Medication List Reviewed: Yes Alendronate Sodium (Alendronate Sodium) 70 Mg Tablet, 70 MG PO WED, (Reported) Entered as Reported by: FRANCESCA VILLARREAL on 06/18/21 0841 Amoxicillin/Potassium Clav (Augmentin 500-125 Tablet) 500 Mg-125 Mg Tablet, 1 EA CH PO TID Prescribed by: FOREIGN MARS on 01/23/23 0848 Atorvastatin Calcium (Atorvastatin Calcium) 10 Mg Tablet, 10 MG PO DAILY, (Reported) Entered as Reported by: CHARLIE WATT on 01/20/23 1059 Cholecalciferol (Vitamin D3) (Vitamin D3) 125 Mcg (5000 Unit) Tablet, 125 MCG PO HS, (Reported) Entered as Reported by: BRIAN MAURO on 11/11/22 1230 L.acidoph & Paracasei,B.lactis (Probiotic) 10 Billion Cell Capsule, 1 EACH PO TID Prescribed by: FOREIGN MARS on 01/23/23 0848 Losartan Potassium (Losartan Potassium) 50 Mg Tablet, 50 MG PO DAILY, (Reported) Entered as Reported by: CHARLIE WATT on 01/20/23 1102 Metoprolol Succinate (Metoprolol Succinate) 50 Mg Tab.er.24h, 50 MG PO HS, (Reported) Entered as Reported by: CHARLIE WATT on 01/20/23 1059 Oxybutynin Chloride (Oxybutynin Chloride) 5 Mg Tablet, 5 MG PO BID Prescribed by: FOREIGN MARS on 01/23/23 0848 Pantoprazole Sodium (Pantoprazole Sodium) 40 Mg Tablet.dr, 40 MG PO BID, (Reported) Entered as Reported by: BRIAN MAURO on 11/11/22 1230 Potassium Chloride (Potassium Chloride) 20 Meq Tablet.er, 40 MEQ PO BID, (Reported) Entered as Reported by: CHARLIE WATT on 01/20/23 1106 Rivaroxaban (Xarelto) 20 Mg Tablet, 20 MG PO DAILY, (Reported) Entered as Reported by: BRIAN MAURO on 11/11/22 1233 Sucralfate (Sucralfate) 1 Gram Tablet, 1 GM PO HS, (Reported) Entered as Reported by: BRIAN MAURO on 11/11/22 1230 Tramadol HCl (Tramadol HCl) 50 Mg Tablet, 50 MG PO HS, (Reported) Entered as Reported by: SHANTI MANUEL on 11/28/18 1607 Review of Systems Review of Systems Constitutional: fever EENTM: no symptoms reported Respiratory: No cough Cardiovascular: No chest pain Gastrointestinal: see HPI Genitourinary: no symptoms reported Musculoskeletal: no symptoms reported Skin: no symptoms reported Psychiatric/Neurological: No Symptoms Reported Past Ipnioof-Dcalii-Ellhzu Hx Patient Social History Tobacco Use?: No Use of E-Cig and/or Vaping dev: No Substance use?: No Alcohol Use?: No Pt feels they are or have been: No Immunizations Up To Date Tetanus Booster (TDap): Unknown PED Vaccines UTD: Yes First/Initial COVID19 Vaccinat: DECEMBER 2020 Second COVID19 Vaccination Sanjeev: DECEMBER 2020 Third COVID19 Vaccination Date: DECEMBER 2020 Seasonal Allergies Seasonal Allergies: Yes Past Medical History Surgery/Hospitalization HX: HTN, A FIB, GERD, ANEURYSM, BILAT TKR AAA REPAIR Surgeries: Yes (BILATERAL KNEE REPLACEMENT) Hysterectomy, Joint Replacement, Orthopedic, Tonsillectomy, Tubal Ligation Respiratory: Yes (hx. 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 Heart Disease, Hypertension ADMITTED 03/2022 AND DX WITH COVID-19 INFECTION AND NEW ONSET OF ATRIAL FIBRILLATION, AND NSTEMI. CARDIAC CATH 11/11/[address] SIDDIQUI: CONCLUSION: 1. Mild coronary artery disease nonobstructive disease 2. Normal left ventricular end-diastolic pressure 3. 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 I was unable to evaluate the abdominal aorta DISCUSSION AND RECOMMENDATION: Medical therapy is recommended no intervention is needed Physical Exam Vital Signs - First Documented 02/26/23 15:15 Temp 37.9 Pulse 151 Resp 25 B/P (MAP) 128/84 (99) Pulse Ox 93 O2 Delivery Room Air Capillary Refill : Less Than 3 Seconds Height: 5'6.00" Weight: 167lbs. 6.0oz. 75.749338lh; 28.00 BMI Method:Stated General Appearance: WD/WN, mild distress, other (Actively dry heaving) Eyes: Bilateral Eye Normal Inspection HEENT: PERRL/EOMI, normal ENT inspection, pharynx normal Neck: non-tender, full range of motion, supple, normal inspection Respiratory: chest non-tender, lungs clear, normal breath sounds, no respiratory distress, no accessory muscle use Cardiovascular: no edema, tachycardia, irregularly irregular Gastrointestinal: normal bowel sounds, non tender, soft; No distended, No guarding, No rebound; other (Groin wounds appear clean, dry, intact, no obvious infection) Extremities: normal range of motion, non-tender, normal inspection, no pedal edema, no calf tenderness, normal capillary refill Neurologic/Psychiatric: no motor/sensory deficits, alert, normal mood/affect Skin: normal color, warm/dry Focused Exam Lactate Level 02/26/23 15:20: Lactic Acid Level 3.43*H Lactic Acid Level Laboratory Tests Test 02/26/23 15:20 Lactic Acid Level 3.43 MMOL/L (0.50-2.00) *H Progress/Results/Core Measures Suspected Sepsis SIRS Temperature: Pulse: 151 Respiratory Rate: 25 Laboratory Tests 02/26/23 15:20: White Blood Count 9.3 Blood Pressure 145 /107 Mean: 120 02/26/23 15:20: Lactic Acid Level 3.43*H Laboratory Tests 02/26/23 15:20: Creatinine 1.02, INR Comment 3.7H, Platelet Count 181, Total Bilirubin 1.1H Results/Orders Lab Results Laboratory Tests Test 02/26/23 15:20 02/26/23 15:40 Range/Units White Blood Count 9.3 4.3-11.0 10^3/uL Red Blood Count 3.90 3.80-5.11 10^6/uL Hemoglobin 11.9 11.5-16.0 g/dL Hematocrit 37 35-52 % Mean Corpuscular Volume 95 80-99 fL Mean Corpuscular Hemoglobin 31 25-34 pg Mean Corpuscular Hemoglobin Concent 32 32-36 g/dL Red Cell Distribution Width 15.9 H 10.0-14.5 % Platelet Count 181 130-400 10^3/uL Mean Platelet Volume 10.3 9.0-12.2 fL Immature Granulocyte % (Auto) 0 % Neutrophils (%) (Auto) 89 H 42-75 % Lymphocytes (%) (Auto) 8 L 12-44 % Monocytes (%) (Auto) 1 0-12 % Eosinophils (%) (Auto) 2 0-10 % Basophils (%) (Auto) 0 0-10 % Neutrophils # (Auto) 8.2 H 1.8-7.8 10^3/uL Lymphocytes # (Auto) 0.7 L 1.0-4.0 10^3/uL Monocytes # (Auto) 0.1 0.0-1.0 10^3/uL Eosinophils # (Auto) 0.2 0.0-0.3 10^3/uL Basophils # (Auto) 0.0 0.0-0.1 10^3/uL Immature Granulocyte # (Auto) 0.0 0.0-0.1 10^3/uL Neutrophils % (Manual) 82 % Lymphocytes % (Manual) 11 % Monocytes % (Manual) 2 % Eosinophils % (Manual) 3 % Basophils % (Manual) 0 % Band Neutrophils 2 % Anisocytosis SLIGHT Blood Morphology Comment Prothrombin Time 35.9 H 12.2-14.7 SEC INR Comment 3.7 H 0.8-1.4 Activated Partial Thromboplast Time 51 H 24-35 SEC Sodium Level 138 135-145 MMOL/L Potassium Level 4.1 3.6-5.0 MMOL/L Chloride Level 102 98-107 MMOL/L Carbon Dioxide Level 22 21-32 MMOL/L Anion Gap 14 5-14 MMOL/L Blood Urea Nitrogen 13 7-18 MG/DL Creatinine 1.02 0.60-1.30 MG/DL Estimat Glomerular Filtration Rate 54 BUN/Creatinine Ratio 13 Glucose Level 107 H 70-105 MG/DL Lactic Acid Level 3.43 *H 0.50-2.00 MMOL/L Calcium Level 9.1 8.5-10.1 MG/DL Corrected Calcium 9.2 8.5-10.1 MG/DL Total Bilirubin 1.1 H 0.1-1.0 MG/DL Aspartate Amino Transf (AST/SGOT) 27 5-34 U/L Alanine Aminotransferase (ALT/SGPT) 12 0-55 U/L Alkaline Phosphatase 84 40-136 U/L Troponin I < 0.028 <0.028 NG/ML B-Type Natriuretic Peptide 311.6 H <100.0 PG/ML Total Protein 7.8 6.4-8.2 GM/DL Albumin 3.9 3.2-4.5 GM/DL Urine Color YELLOW Urine Clarity CLEAR Urine pH 6.0 5-9 Urine Specific [place] <=1.005 1.016-1.022 Urine Protein TRACE H NEGATIVE Urine Glucose (UA) NEGATIVE NEGATIVE Urine Ketones NEGATIVE NEGATIVE Urine Nitrite NEGATIVE NEGATIVE Urine Bilirubin NEGATIVE NEGATIVE Urine Urobilinogen 0.2 < = 1.0 MG/DL Urine Leukocyte Esterase NEGATIVE NEGATIVE Urine RBC (Auto) TRACE-I H NEGATIVE Urine RBC 0-2 /HPF Urine WBC NONE /HPF Urine Squamous Epithelial Cells 0-2 /HPF Urine Crystals NONE /LPF Urine Bacteria NEGATIVE /HPF Urine Casts NONE /LPF Urine Mucus NEGATIVE /LPF Urine Culture Indicated NO My Orders Orders - NEMO RAMOS MD Cbc With Automated Diff (02/26/23 15:18) Comprehensive Metabolic Panel (02/26/23 15:18) Blood Culture (02/26/23 15:18) Sputum Culture (02/26/23 15:18) Urinalysis (02/26/23 15:18) Urine Culture (02/26/23 15:18) Protime With Inr (02/26/23 15:18) Partial Thromboplastin Time (02/26/23 15:18) Ed Iv/Invasive Line Start (02/26/23 15:18) Ed Iv/Invasive Line Start (02/26/23 15:18) Ekg Tracing (02/26/23 15:18) Troponin I Chris (02/26/23 15:18) Vital Signs Adult Sepsis Patie Q15M (02/26/23 15:18) O2 (02/26/23 15:18) Remove Rings In Anticipation O (02/26/23 15:18) Lactic Acid Analyzer (02/26/23 15:18) Ns Iv 1000 Ml (Sodium Chloride 0.9%) (02/26/23 15:30) Cefepime Injection (Maxipime Injection) (02/26/23 15:30) Bnp Greer (02/26/23 15:18) Ondansetron Injection (Zofran Injectio (02/26/23 15:30) Chest 1 View, Ap/Pa Only (02/26/23 15:23) Ct Ang Chst/N-Ang Abd/Pel W/Wo (02/26/23 15:18) Acetaminophen Tablet (Tylenol Tablet) (02/26/23 15:30) Manual Differential (02/26/23 15:20) Promethazine Injection (Phenergan Injec (02/26/23 16:00) Iohexol Injection (Omnipaque 350 Mg/Ml 1 (02/26/23 16:15) Received Contrast (Hold Metformin- Contr (02/26/23 16:15) Ns (Ivpb) (Sodium Chloride 0.9% Ivpb Bag (02/26/23 16:15) Promethazine Injection (Phenergan Injec (02/26/23 16:03) Medications Given in ED Current Medications Medications Dose Ordered Sig/Diana Route Start Time Stop Time Status Last Admin Dose Admin Acetaminophen 1,000 mg ONCE ONCE PO 02/26/23 15:30 02/26/23 15:31 DC 02/26/23 15:43 1,000 MG Cefepime HCl 1000 mg/Sodium Chloride 50 ml @ 100 mls/hr ONCE ONCE IV 02/26/23 15:30 02/26/23 15:59 DC 02/26/23 15:29 100 MLS/HR Iohexol 100 ml ONCE ONCE IV 02/26/23 16:15 02/26/23 16:16 DC 02/26/23 16:36 71 ML Ondansetron HCl 4 mg ONCE ONCE IVP 02/26/23 15:30 02/26/23 15:31 DC 02/26/23 15:28 4 MG Promethazine HCl 25 mg ONCE ONCE IVP 02/26/23 16:00 02/26/23 16:01 DC 02/26/23 16:04 25 MG Sodium Chloride 100 ml ONCE ONCE IV 02/26/23 16:15 02/26/23 16:16 DC 02/26/23 16:36 80 ML Vital Signs/I&O 02/26/23 02/26/23 15:15 15:43 Temp 37.9 38.2 Pulse 151 Resp 25 B/P (MAP) 128/84 (99) Pulse Ox 93 O2 Delivery Room Air Capillary Refill : Less Than 3 Seconds Blood Pressure Mean: 120 Progress Note : Progress Note 82-year-old female presenting for fever. The patient was tachycardic in A-fib with RVR rates 150s to 170s on arrival. Blood pressure 120s systolic. She was febrile here, initially 100.7, later greater than 101. Attempted to give her Tylenol, but she is vomiting. She was given initially Zofran followed by Phenergan. She was also given IV fluids as well as antibiotics due to concerns for infection. Her white blood cell count is normal, creatinine normal, troponin negative, lactic acid slightly elevated. EKG on my interpretation with A-fib with RVR with no acute ischemic changes. CTA chest with no obvious PE. 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 In regards to her A-fib with RVR, I am unclear what the exact causes, likely infectious. I do not want to immediately give her any type of beta-mariah or calcium channel mariah as it may cause her to decompensate. I contacted [facility] who will admit the patient for further evaluation and management. Discussed the case with Dr. Ron ECG Initial ECG Impression Date: Feb 26, 2023 Initial ECG Impression Time: 15:31 Initial ECG Rate: 147 Initial ECG Rhythm: A Fib/Flutter Comment Narrow QRS, normal axis, subtle ST depression in the high lateral leads, no STEMI Diagnostic Imaging Diagonstic Imaging: Xray (chest), CT (CTA chest/CT abd pelvis with) Comments [facility], [place] NAME: ROSMERY CARLOS [facility] REC#: [id number] PT STATUS: REG ER : 1940 PHYSICIAN: NEMO RAMOS MD ADMIT DATE: 02/26/23/ER Draft Date of Exam:02/26/23 CHEST 1 VIEW, AP/PA ONLY INDICATION: fever, SOB COMPARISON: 02/01/2023. FINDINGS: Single frontal view of the chest demonstrates normal heart size and pulmonary vascularity. The lungs are well aerated and clear. No large pleural effusion or pneumothorax is seen. The visualized osseous structures show no acute abnormalities. IMPRESSION: 1. No acute cardiopulmonary process. Dictated on workstation # [id number] Dict: 02/26/23 1532 Trans: 02/26/23 1533 [id number] Interpreted by: MARLEN MG MD Electronically signed by: NAME: ROSMERY CARLOS [facility] REC#: [id number] PT STATUS: REG ER : 1940 PHYSICIAN: NEMO RAMOS MD ADMIT DATE: 02/26/23/ER Draft Date of Exam:02/26/23 CT ANG CHST/N-ANG ABD/PEL W/WO INDICATION: Abdominal aortic aneurysm repair, follow-up. EXAMINATION: CTA chest, abdomen, and pelvis. TECHNIQUE: Thin axial sections through the chest, abdomen, and pelvis are obtained before and after contrast enhancement. Multiplanar MIP images were reconstructed and reviewed on the postcontrast images. All CT scans use one or more of the following dose optimizing techniques: Automated exposure control, MA and/or KvP adjustment based on patient size and exam type or iterative reconstruction. CTA CHEST: FINDINGS: There is minimal right basilar atelectasis. Lungs are otherwise clear. There are no effusions or pneumothoraces. There is some calcific atherosclerosis of the thoracic aorta, but no aneurysm or dissection. There are no pulmonary emboli. There is no right ventricular strain. There is no hilar or mediastinal lymphadenopathy. There is a calcified granuloma in the right apex. IMPRESSION: No acute abnormalities in the chest. CTA ABDOMEN AND PELVIS: FINDINGS: There are postoperative changes from stent graft repair of the abdominal aorta. This is a bifurcated stent graft that extends from the infrarenal abdominal aorta where there is good apposition of the patent lumen of the aneurysm neck. The celiac, superior mesenteric, and both renal arteries appear to be widely patent. Both limbs of the stent graft are patent. Both terminate in the internal iliac arteries above the iliac bifurcations. There appears to be good apposition of the graft at the termination point. There is a residual aneurysm sac that measures 5.2 x 4.9 cm in the abdominal aorta. This is unchanged in size from a preop noncontrast CT abdomen dated 01/19/2023. There does appear to be an endoleak involving the aneurysm sac. This may be a type III endoleak. There is a sliding hiatal hernia. Liver appears normal. There is some sludge or contrast in the dependent portion of the gallbladder. Pancreas is normal. There are calcified granulomas in the spleen. Adrenals are normal. Kidneys are unremarkable. There is colonic diverticulosis. Small bowel is not dilated. Urinary bladder is decompressed with a Bateman catheter. 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 Dictated on workstation # [id number] Dict: 02/26/23 1647 Trans: 02/26/23 1705 [id number] Interpreted by: AISSATOU MARIANO MD Electronically signed by: Departure Impression Primary Impression: Postoperative fever Additional Impressions: Lactic acidosis Atrial fibrillation with RVR Disposition: [facility] HOSP Condition: Stable Admissions Decision to Admit/Date: Feb 26, 2023 Time/Decision to Admit Time: 16:10 Transfer Transfer Reason: Exceeds level of care (needs thoracic surgery and continuity of care) Transfer Facility: [facility] to Dr. Ron. Method of Transfer: EMS Departure-Patient Inst. Referrals: FOREIGN MARS MD (PCP/Family) Primary Care Physician NEMO RAMOS MD Feb 26, 2023 15:27
[2023-02-26] MEDS ORDERED: ONDANSETRON 4 MG/2 ML (SDV) Z0FRAN IVP ONE (15:30)
[2023-02-26] MEDS ORDERED: CEFEPIME INJECTION 1,000 MG in NS (IVPB) 50 ML IV ONE (15:30)
[2023-02-26] MEDS ORDERED: ACETAMINOPHEN 500 MG TAB (TYLENOL) PO ONE (15:30)
[2023-02-26] MEDS ORDERED: NS IV 1000 ML 1,000 ML IV SCH (15:30)
--- NOTE | 2023-02-26 15:34 | Diagnostic Imaging Report ---
INDICATION: fever, SOB COMPARISON: 02/01/2023. FINDINGS: Single frontal view of the chest demonstrates normal heart size and pulmonary vascularity. The lungs are well aerated and clear. No large pleural effusion or pneumothorax is seen. The visualized osseous structures show no acute abnormalities. IMPRESSION: 1. No acute cardiopulmonary process. Dictated by: Dictated on workstation # [id number]
[2023-02-26 15:36] LABS: BASOPHILS % (AUTO) 0 % (0-10); EOSINOPHILS # (AUTO) 0.2 10^3/uL (0.0-0.3); EOSINOPHILS % (AUTO) 2 % (0-10); HEMATOCRIT 37 % (35-52); HEMOGLOBIN 11.9 g/dL (11.5-16.0); LYMPHOCYTES # (AUTO) 0.7 10^3/uL (1.0-4.0); LYMPHOCYTES % (AUTO) 8 % (12-44); MEAN CORPUSCULAR HEMOGLOBIN 31 pg (25-34); MEAN CORPUSCULAR HGB CONC 32 g/dL (32-36); MEAN CORPUSCULAR VOLUME 95 fL (80-99); MEAN PLATELET VOLUME 10.3 fL (9.0-12.2); MONOCYTES # (AUTO) 0.1 10^3/uL (0.0-1.0); MONOCYTES % (AUTO) 1 % (0-12); NEUTROPHILS # (AUTO) 8.2 10^3/uL (1.8-7.8); NEUTROPHILS % (AUTO) 89 % (42-75); PLATELET COUNT 181 10^3/uL (130-400); WHITE BLOOD COUNT 9.3 10^3/uL (4.3-11.0)
[2023-02-26 15:47] LABS: BILIRUBIN,URINE NEGATIVE (NEGATIVE); CLARITY,URINE CLEAR; COLOR,URINE YELLOW; GLUCOSE, URINE (UA) NEGATIVE (NEGATIVE); KETONES,URINE NEGATIVE (NEGATIVE); LEUKOCYTE ESTERASE ,URINE NEGATIVE (NEGATIVE); NITRITE,URINE NEGATIVE (NEGATIVE); PROTEIN,URINE TRACE (NEGATIVE)
[2023-02-26 15:48] LABS: INR 3.7 (0.8-1.4); PROTHROMBIN TIME PATIENT 35.9 SEC (12.2-14.7)
[2023-02-26 15:50] LABS: ALBUMIN 3.9 GM/DL (3.2-4.5); CHLORIDE 102 MMOL/L (98-107); POTASSIUM 4.1 MMOL/L (3.6-5.0); SODIUM 138 MMOL/L (135-145)
[2023-02-26 15:51] LABS: CALCIUM 9.1 MG/DL (8.5-10.1)
[2023-02-26 15:52] LABS: GLUCOSE 107 MG/DL (70-105)
[2023-02-26 15:53] LABS: TOTAL PROTEIN 7.8 GM/DL (6.4-8.2)
[2023-02-26 15:54] LABS: BILIRUBIN,TOTAL 1.1 MG/DL (0.1-1.0); CARBON DIOXIDE 22 MMOL/L (21-32)
[2023-02-26 15:56] LABS: ALKALINE PHOSPHATASE 84 U/L (40-136); CREATININE SERUM 1.02 MG/DL (0.60-1.30); GFR ESTIMATED 54
[2023-02-26 15:57] LABS: BUN/CREATININE RATIO 13
[2023-02-26 15:59] LABS: ALANINE AMINOTRANSFERASE 12 U/L (0-55)
[2023-02-26 16:00] LABS: ANISOCYTOSIS SLIGHT; BAND NEUTROPHILS 2 %; BASOPHILS % (MANUAL) 0 %; EOSINOPHILS % (MANUAL) 3 %; LYMPHOCYTES % (MANUAL) 11 %; MONOCYTES % (MANUAL) 2 %; NEUTROPHILS % (MANUAL) 82 %
[2023-02-26] MEDS ORDERED: PROMETHAZINE INJ 25 MG/ML (PHENERGAN) AMP IVP ONE (16:00)
[2023-02-26] MEDS ORDERED: PROMETHAZINE INJ 25 MG/ML (PHENERGAN) AMP ONE (16:03)
[2023-02-26 16:04] LABS: BACTERIA,URINE NEGATIVE /HPF; RBC,URINE 0-2 /HPF
[2023-02-26 16:05] LABS: SQUAMOUS EPITHELIAL CELL,UR 0-2 /HPF
[2023-02-26] MEDS ORDERED: IOHEXOL 350 MG/ML 100 ML (OMNIPAQUE 350) VIAL IV ONE (16:15)
[2023-02-26] MEDS ORDERED: HOLD METFORMIN - RECEIVED CONTRAST 20 ML VIAL IV SCH (16:15)
[2023-02-26] MEDS ORDERED: NS 100 ML (IVPB) BAG IV ONE (16:15)
--- NOTE | 2023-02-26 17:06 | Diagnostic Imaging Report ---
INDICATION: Abdominal aortic aneurysm repair, follow-up. EXAMINATION: CTA chest, abdomen, and pelvis. TECHNIQUE: Thin axial sections through the chest, abdomen, and pelvis are obtained before and after contrast enhancement. Multiplanar MIP images were reconstructed and reviewed on the postcontrast images. All CT scans use one or more of the following dose optimizing techniques: Automated exposure control, MA and/or KvP adjustment based on patient size and exam type or iterative reconstruction. CTA CHEST: FINDINGS: There is minimal right basilar atelectasis. Lungs are otherwise clear. There are no effusions or pneumothoraces. There is some calcific atherosclerosis of the thoracic aorta, but no aneurysm or dissection. There are no pulmonary emboli. There is no right ventricular strain. There is no hilar or mediastinal lymphadenopathy. There is a calcified granuloma in the right apex. IMPRESSION: No acute abnormalities in the chest. CTA ABDOMEN AND PELVIS: FINDINGS: There are postoperative changes from stent graft repair of the abdominal aorta. This is a bifurcated stent graft that extends from the infrarenal abdominal aorta where there is good apposition of the patent lumen of the aneurysm neck. The celiac, superior mesenteric, and both renal arteries appear to be widely patent. Both limbs of the stent graft are patent. Both terminate in the internal iliac arteries above the iliac bifurcations. There appears to be good apposition of the graft at the termination point. There is a residual aneurysm sac that measures 5.2 x 4.9 cm in the abdominal aorta. This is unchanged in size from a preop noncontrast CT abdomen dated 01/19/2023. There does appear to be an endoleak involving the aneurysm sac. This may be a type III endoleak. There is a sliding hiatal hernia. Liver appears normal. There is some sludge or contrast in the dependent portion of the gallbladder. Pancreas is normal. There are calcified granulomas in the spleen. Adrenals are normal. Kidneys are unremarkable. There is colonic diverticulosis. Small bowel is not dilated. Urinary bladder is decompressed with a Bateman catheter. 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 Dictated by: Dictated on workstation # [id number]
[2023-02-26 18:15] VITALS: BP 117/70
== END 2023-02-26 18:57 | disposition short-term general hospital (02) ==
LOC: EDUNIT# 15:05 → ER 15:06
DX: R50.82 Postprocedural fever (principal); E87.20 Acidosis, unspecified; I48.91 Unspecified atrial fibrillation; Z79.02 Long term (current) use of antithrombotics/antiplatelets
CPT/HCPCS: 36415; 51702; 71045; 71275; 74178; 80053; 81000; 83605; 83880; 84484; 85007; 85027; 85610; 85730; 87040; 87088; 99291

== ENCOUNTER → 2023-03-04 | Outpatient (CLI) | payer MEDICARE ==
[~2023-03-04] MED LIST changes: -LOSA100T57 PO; +LOSA100T58 PO; +POTA-330 PO; -POTA-51 PO
[2023-03-04 14:49] LABS: BASOPHILS % (AUTO) 0 % (0-10); EOSINOPHILS # (AUTO) 0.6 10^3/uL (0.0-0.3); EOSINOPHILS % (AUTO) 6 % (0-10); HEMATOCRIT 31 % (35-52); HEMOGLOBIN 10.1 g/dL (11.5-16.0); LYMPHOCYTES # (AUTO) 2.3 10^3/uL (1.0-4.0); LYMPHOCYTES % (AUTO) 23 % (12-44); MEAN CORPUSCULAR HEMOGLOBIN 30 pg (25-34); MEAN CORPUSCULAR HGB CONC 33 g/dL (32-36); MEAN CORPUSCULAR VOLUME 93 fL (80-99); MEAN PLATELET VOLUME 9.2 fL (9.0-12.2); MONOCYTES % (AUTO) 10 % (0-12); NEUTROPHILS # (AUTO) 6.2 10^3/uL (1.8-7.8); NEUTROPHILS % (AUTO) 61 % (42-75); PLATELET COUNT 295 10^3/uL (130-400); WHITE BLOOD COUNT 10.2 10^3/uL (4.3-11.0)
[2023-03-04 15:09] LABS: ALBUMIN 3.6 GM/DL (3.2-4.5); BILIRUBIN,TOTAL 0.6 MG/DL (0.1-1.0); CALCIUM 9.4 MG/DL (8.5-10.1); CREATININE SERUM 0.97 MG/DL (0.60-1.30); POTASSIUM 3.8 MMOL/L (3.6-5.0); TOTAL PROTEIN 7.1 GM/DL (6.4-8.2)
--- NOTE | 2023-03-04 15:30 | Diagnostic Imaging Report ---
INDICATION: DYSPNEA COMPARISON: 02/26/2023 FINDINGS: Single frontal view of the chest demonstrates normal heart size and pulmonary vascularity. The lungs are well aerated and clear. No large pleural effusion or pneumothorax is seen. The visualized osseous structures show no acute abnormalities. IMPRESSION: 1. No acute cardiopulmonary process. Dictated by: Dictated on workstation # [id number]
== END ==
LOC: RAD 14:29
PROVIDERS: ATTEND Nurse Practitioner Family
DX: I48.91 Unspecified atrial fibrillation (principal); N39.0 Urinary tract infection, site not specified; R06.00 Dyspnea, unspecified
CPT/HCPCS: 36415; 71046; 80053; 83880; 85025; 87088

== ENCOUNTER 2023-03-05 18:42 | Emergency (ER) | payer MEDICARE ==
[2023-03-05] MEDS ORDERED: ONDANSETRON 4 MG/2 ML (SDV) Z0FRAN IVP ONE ×2 (19:00→21:45)
[2023-03-05] MEDS ORDERED: NS IV 1000 ML 1,000 ML IV SCH (19:00)
--- NOTE | 2023-03-05 19:09 | ED General ---
General Stated Complaint: UTI/VOMITING Source of Information: Patient, EMS Exam Limitations: No Limitations (FERMIN BLACKMAN APRN) History of Present Illness Date Seen by Provider: Mar 05, 2023 Time Seen by Provider: 17:45 Initial Comments 82-year-old female presents the ER via EMS. EMS reports that patient has been in and out of the hospital for the last month for UTI. She started having nausea and vomiting and weakness approximately 45 minutes prior to arrival. She threw up 4 times for EMS, EMS reports the amounts were small. EMS reports patient had a temperature of 101.9 tympanic, and elevated heart rate. They also report oxygen in the low 80s on room air, patient does not wear oxygen at home. They placed her on 5 L via nasal cannula which brought her O2 saturation up to the mid to high 80s. Patient reports nausea and vomiting, states she had a bowel movement yesterday. Denies chest pain, shortness of air, abdominal pain. Patient is lethargic, must ask patient questions multiple times to get answers. Patient oriented x4. Patient is in A-fib RVR upon arrival with a rate up to 160. Patient is anticoagulated with Xarelto, reports compliance with Xarelto and her other medications. She had a AAA repair on 02/24 at [facility] in [place]. She was seen here on 02/26 for A-fib RVR and sepsis. She was transferred to [facility] on that day for admission. (FERMIN BLACKMAN APRN) Allergies and Home Medications Allergies Coded Allergies: NSAIDS (Non-Steroidal Anti-Inflamma (Verified Allergy, Unknown, 03/21/09) Patient Home Medication List Home Medication List Reviewed: Yes (FEMRIN BLACKMAN APRN) Alendronate Sodium (Alendronate Sodium) 70 Mg Tablet, 70 MG PO WED, (Reported) Entered as Reported by: FRANCESCA VILLARREAL on 06/18/21 0841 Amoxicillin/Potassium Clav (Augmentin 500-125 Tablet) 500 Mg-125 Mg Tablet, 1 EACH PO TID Prescribed by: FOREIGN MARS on 01/23/23 0848 Atorvastatin Calcium (Atorvastatin Calcium) 10 Mg Tablet, 10 MG PO DAILY, (Reported) Entered as Reported by: CHARLIE WATT on 01/20/23 1059 Cholecalciferol (Vitamin D3) (Vitamin D3) 125 Mcg (5000 Unit) Tablet, 125 MCG PO HS, (Reported) Entered as Reported by: BRIAN MAURO on 11/11/22 1230 L.acidoph & Paracasei,B.lactis (Probiotic) 10 Billion Cell Capsule, 1 EACH PO TID Prescribed by: FOREIGN MARS on 01/23/23 0848 Losartan Potassium (Losartan Potassium) 50 Mg Tablet, 50 MG PO DAILY, (Reported) Entered as Reported by: CHARLIE WATT on 01/20/23 1102 Metoprolol Succinate (Metoprolol Succinate) 50 Mg Tab.er.24h, 50 MG PO HS, (Reported) Entered as Reported by: CHARLIE WATT on 01/20/23 1059 Oxybutynin Chloride (Oxybutynin Chloride) 5 Mg Tablet, 5 MG PO BID Prescribed by: FOREIGN MARS on 01/23/23 0848 Pantoprazole Sodium (Pantoprazole Sodium) 40 Mg Tablet.dr, 40 MG PO BID, (Reported) Entered as Reported by: BRIAN MAURO on 11/11/22 1230 Potassium Chloride (Potassium Chloride) 20 Meq Tablet.er, 40 MEQ PO BID, (Reported) Entered as Reported by: CHARLIE WATT on 01/20/23 1106 Rivaroxaban (Xarelto) 20 Mg Tablet, 20 MG PO DAILY, (Reported) Entered as Reported by: BRIAN MAURO on 11/11/22 1233 Sucralfate (Sucralfate) 1 Gram Tablet, 1 GM PO HS, (Reported) Entered as Reported by: BRIAN MAURO on 11/11/22 1230 Tramadol HCl (Tramadol HCl) 50 Mg Tablet, 50 MG PO HS, (Reported) Entered as Reported by: SHANTI MANUEL on 11/28/18 1607 Review of Systems Review of Systems Constitutional: see HPI (FERMIN BLACKMAN APRN) Past Juwegsn-Aquzvi-Zomuxm Hx Immunizations Up To Date Tetanus Booster (TDap): Unknown PED Vaccines UTD: Yes First/Initial COVID19 Vaccinat: DECEMBER 2020 Second COVID19 Vaccination Sanjeev: DECEMBER 2020 Third COVID19 Vaccination Date: DECEMBER 2020 (FERMIN BLACKMAN APRN) Seasonal Allergies Seasonal Allergies: Yes (FERMIN BLACKMAN APRN) Past Medical History Surgery/Hospitalization HX: HTN, A FIB, GERD, ANEURYSM, BILAT TKR AAA REPAIR Surgeries: Yes (BILATERAL KNEE REPLACEMENT) Hysterectomy, Joint Replacement, Orthopedic, Tonsillectomy, Tubal Ligation Respiratory: Yes (hx. of asthma yrs ago.; wears 02@1-2 at nite, COUGH) Asthma Currently Using CPAP: No Currently Using BIPAP: No Cardiac: Yes (CARDIAC CATH 11/11/22-MILD NON-OBSTRUCTIVE DISEASE; AAA ; ) Aneurysm, Atrial Fibrillation, Coronary Artery Disease, Heart Attack, High Cholesterol, Hypertension Neurological: No Reproductive Disorders: No BLENDER SNUFF History: Tubal Ligation, Menopausal Sexually Transmitted Disease: No HIV/AIDS: No Genitourinary: No Gastrointestinal: Yes (CHRONIC NAUSEA) Gastroesophageal Reflux, Diverticulosis, Hiatal Hernia, Ulcer Musculoskeletal: Yes (LEFT SHOULDER PAIN, CHRONIC GENERALIZED PAIN/CHRONIC NECK PAIN;BILAT TKR) Arthritis, Chronic Back Pain Endocrine: No HEENT: Yes (GLASSES, UPPER DENTURES) Loss of Vision: Denies Hearing Impairment: Denies Cancer: No Psychosocial: No Integumentary: No Blood Disorders: No Adverse Reaction/Blood Tranf: No (N/A) (FERMIN BLACKMAN APRN) Family Medical History Patient reports no known family medical history. Heart Disease, Hypertension ADMITTED 03/2022 AND DX WITH COVID-19 INFECTION AND NEW ONSET OF ATRIAL FIBRILLATION, AND NSTEMI. CARDIAC CATH 11/11/[address] SIDDIQUI: CONCLUSION: 1. Mild coronary artery disease nonobstructive disease 2. Normal left ventricular end-diastolic pressure 3. 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 I was unable to evaluate the abdominal aorta DISCUSSION AND RECOMMENDATION: Medical therapy is recommended no intervention is needed (FERMIN BLACKMAN APRN) Physical Exam Vital Signs Vital Signs - First Documented 03/05/23 03/05/23 18:45 18:52 Temp 39.6 Pulse 130 Resp 26 B/P (MAP) 116/77 (90) Pulse Ox 94 O2 Delivery Nasal Cannula O2 Flow Rate 6.00 (SHIELA KAHN MD) Vital Signs Capillary Refill : (FERMIN BLACKMAN APRN) Height, Weight, BMI Height: 5'6.00" Weight: 167lbs. 6.0oz. 75.937313he; 28.00 BMI Method:Stated General Appearance: Moderate Distress Neck: Non Tender, Supple Respiratory: Decreased Breath Sounds, Wheezing Cardiovascular: Irregularly Irregular Extremity: Pedal Edema (non pitting) Neurologic/Psychiatric: Oriented x3, Other (Lethargic) Skin: Normal Color, Warm/Dry (Skin is hot) (FERMIN BLACKMAN APRN) Focused Exam Lactate Level 03/05/23 19:05: Lactic Acid Level 3.25*H 03/05/23 21:19: Lactic Acid Level 1.93 (SHIELA KAHN MD) Lactic Acid Level Laboratory Tests Test 03/05/23 19:05 03/05/23 21:19 Lactic Acid Level 3.25 MMOL/L (0.50-2.00) *H 1.93 MMOL/L (0.50-2.00) (SHIELA KAHN MD) Progress/Results/Core Measures Suspected Sepsis SIRS Temperature: Pulse: Respiratory Rate: Laboratory Tests 03/05/23 19:05: White Blood Count 4.7 Blood Pressure / Mean: 03/05/23 19:05: Lactic Acid Level 3.25*H 03/05/23 21:19: Lactic Acid Level 1.93 Laboratory Tests 03/05/23 19:05: Creatinine 1.15, INR Comment 1.5H, Platelet Count 334, Total Bilirubin 0.7 (FERMIN BLACKMAN APRN) Results/Orders Lab Results Laboratory Tests Test 03/05/23 19:05 03/05/23 19:08 03/05/23 20:04 03/05/23 20:24 Range/Units White Blood Count 4.7 4.3-11.0 10^3/uL Red Blood Count 3.73 L 3.80-5.11 10^6/uL Hemoglobin 11.2 L 11.5-16.0 g/dL Hematocrit 35 35-52 % Mean Corpuscular Volume 94 80-99 fL Mean Corpuscular Hemoglobin 30 25-34 pg Mean Corpuscular Hemoglobin Concent 32 32-36 g/dL Red Cell Distribution Width 15.9 H 10.0-14.5 % Platelet Count 334 130-400 10^3/uL Mean Platelet Volume 9.3 9.0-12.2 fL Immature Granulocyte % (Auto) 0 % Neutrophils (%) (Auto) 92 H 42-75 % Lymphocytes (%) (Auto) 6 L 12-44 % Monocytes (%) (Auto) 1 0-12 % Eosinophils (%) (Auto) 0 0-10 % Basophils (%) (Auto) 0 0-10 % Neutrophils # (Auto) 4.4 1.8-7.8 10^3/uL Lymphocytes # (Auto) 0.3 L 1.0-4.0 10^3/uL Monocytes # (Auto) 0.0 0.0-1.0 10^3/uL Eosinophils # (Auto) 0.0 0.0-0.3 10^3/uL Basophils # (Auto) 0.0 0.0-0.1 10^3/uL Immature Granulocyte # (Auto) 0.0 0.0-0.1 10^3/uL Neutrophils % (Manual) 45 % Lymphocytes % (Manual) 11 % Eosinophils % (Manual) 1 % Band Neutrophils 43 % Polychromasia SLIGHT Prothrombin Time 18.4 H 12.2-14.7 SEC INR Comment 1.5 H 0.8-1.4 Activated Partial Thromboplast Time 35 24-35 SEC D-Dimer 4.40 H 0.00-0.49 UG/ML Sodium Level 138 135-145 MMOL/L Potassium Level 3.5 L 3.6-5.0 MMOL/L Chloride Level 104 98-107 MMOL/L Carbon Dioxide Level 23 21-32 MMOL/L Anion Gap 11 5-14 MMOL/L Blood Urea Nitrogen 12 7-18 MG/DL Creatinine 1.15 0.60-1.30 MG/DL Estimat Glomerular Filtration Rate 47 BUN/Creatinine Ratio 10 Glucose Level 123 H 70-105 MG/DL Lactic Acid Level 3.25 *H 0.50-2.00 MMOL/L Calcium Level 9.3 8.5-10.1 MG/DL Corrected Calcium 9.7 8.5-10.1 MG/DL Total Bilirubin 0.7 0.1-1.0 MG/DL Aspartate Amino Transf (AST/SGOT) 23 5-34 U/L Alanine Aminotransferase (ALT/SGPT) 13 0-55 U/L Alkaline Phosphatase 119 40-136 U/L B-Type Natriuretic Peptide 339.6 H <100.0 PG/ML Total Protein 6.8 6.4-8.2 GM/DL Albumin 3.5 3.2-4.5 GM/DL Blood Gas Puncture Site LEFT WRIST LR Blood Gas Patient Temperature 39.6 UNK Arterial Blood pH 7.25 *L 7.30 *L 7.37-7.43 Arterial Blood Partial Pressure CO2 63 H 52 H 35-45 MMHG Arterial Blood Partial Pressure O2 25 *L 28 *L 79-93 MMHG Arterial Blood HCO3 26 25 23-27 MMOL/L Arterial Blood Total CO2 27.4 26.5 21.0-31.0 MMOL/L Arterial Blood Oxygen Saturation 20 L 40 L 94-100 % Arterial Blood Base Excess -0.1 -0.6 -2.5-2.5 MMOL/L Parish Test NA YES-POS Blood Gas Ventilator Setting NA NO Blood Gas Inspired Oxygen 6L 6L Urine Color YELLOW Urine Clarity CLEAR Urine pH 6.0 5-9 Urine Specific [place] 1.020 1.016-1.022 Urine Protein 1+ H NEGATIVE Urine Glucose (UA) NEGATIVE NEGATIVE Urine Ketones NEGATIVE NEGATIVE Urine Nitrite NEGATIVE NEGATIVE Urine Bilirubin NEGATIVE NEGATIVE Urine Urobilinogen 0.2 < = 1.0 MG/DL Urine Leukocyte Esterase NEGATIVE NEGATIVE Urine RBC (Auto) NEGATIVE NEGATIVE Urine RBC NONE /HPF Urine WBC 0-2 /HPF Urine Squamous Epithelial Cells 2-5 /HPF Urine Crystals PRESENT H /LPF Urine Amorphous Sediment FEW IMAN URATES H /LPF Urine Bacteria FEW H /HPF Urine Casts PRESENT /LPF Urine Hyaline Casts 5-10 H /LPF Urine Granular Casts RARE /LPF Urine Mucus SMALL H /LPF Urine Culture Indicated CULTURE PENDING Test 03/05/23 21:19 03/05/23 21:58 Range/Units Lactic Acid Level 1.93 0.50-2.00 MMOL/L Influenza Type A (RT-PCR) Not Detected Not Detecte Influenza Type B (RT-PCR) Not Detected Not Detecte SARS-CoV-2 RNA (RT-PCR) Not Detected Not Detecte (SHIELA KAHN MD) Micro Results Microbiology 03/05/23 Blood Culture - Preliminary, Resulted No growth 03/05/23 Urine Culture - Final, Complete NO GROWTH 03/05/23 Blood Culture - Preliminary, Resulted No growth (SHIELA KAHN MD) Vital Signs/I&O 03/05/23 03/05/23 03/05/23/9/23 18:45 18:52 19:34 22:01 Temp 39.6 Pulse 130 156 141 Resp 26 B/P (MAP) 116/77 (90) 118/69 136/50 Pulse Ox 94 94 O2 Delivery Nasal Cannula Nasal Cannula O2 Flow Rate 6.00 6.00 03/06/23 00:00 Pulse 98 Resp 24 B/P (MAP) 109/76 Pulse Ox 95 O2 Delivery Nasal Cannula O2 Flow Rate 6.00 (SHIELA KAHN MD) Vital Signs/I&O Capillary Refill : (FERMIN BLACKMAN APRN) Progress Note : Progress Note Patient seen and evaluated, she is lethargic, appears unwell, requires multiple verbal stimulation to answer questions. She is alert and oriented, and does answer questions multiple prompts. Septic work-up initiated including CBC, CMP, blood cultures x2, lactic acid, chest x-ray, urinalysis, sputum culture, coags, EKG, D-Dimer, ABG. 1 L of IV fluids ordered as well as Zofran. IV push dose of diltiazem 10 mg ordered, diltiazem drip ordered. Patient was placed on 6 L of O2 via nasal cannula upon arrival. Oxygen saturation remains in the low 90s, 91 to 93%. 1927 initial ABG shows critically low pH 7.25, elevated CO2 of 63, critically low PO2 25, ABG O2 saturation 20%. I am concerned that this is a venous draw. Repeat ABG ordered. Patient's heart rate dropped to the 70-80s after push dose of diltiazem. Will hold off on starting the drip at this time. Patient's oxygen saturation improved to mid 90s once heart rate improved, she is still on 6 L nasal cannula. 2129 Labs reviewed. Repeat ABG shows critically low pH 7.30, elevated CO2 52, critically low PO2 28, ABG O2 saturation 40%. All of these are improving. CBC shows normal white count, decreased RBC 3.73, decreased hemoglobin 11.2, neutrophil percentage elevated 92. CMP grossly normal, potassium slightly low 3.5, glucose slightly elevated 123. Lactic acid critically elevated at 3.25. BNP elevated 339. BNP is better than labs drawn a week ago. UA shows 1+ protein, negative nitrites, negative leukocytes, 0-2 WBCs, 2-5 squamous epithelial cells, few bacteria. Coags show elevated PT 18.4, elevated INR 1.5, normal APTT 35. D-dimer elevated 4.40. CT angio chest and abdomen pending. Chest x-ray shows cardiomegaly with progression of pulmonary vascular congestion. Also shows interval development of airspace opacities throughout the right lung and left lung base which might be related to pulmonary congestion but also could be infectious infiltrate. I believe this is pneumonia due to patient appearing septic and hypoxic. Cefepime ordered for hospital-acquired pneumonia. I will have only ordered one liter of IV fluids due to elevated BNP, cardiomegaly, and progression of pulmonary vascular congestion. 2149 CT reviewed. Shows interval progression of interlobular septal thickening in both lungs likely related to interstitial edema from CHF. Cardiomegaly seen. Fluid within the both lower bronchi possible mucous plugging. Atelectasis and consolidation of both lung aces with right side more than left. Mild groundglass opacities noted. No evidence of PE. Stable distal abdominal aorta with endovascular stent graft. Concern for endoleak. They recommend nonemergent vascular surgeon consultation. There is also persistent fat stranding of the adjacent right kidney and right ureter, suggest to correlate with pyelonephritis. No evidence of urinary tract infection at this time. COVID swab added. Heart rate has started to go back up, ranges from 90s to 130s. Will start the Cardizem drip. Oxygen saturation has remained 96 to 97% on 6 L. 2201 We do not have beds available here in the ICU. I called and spoke with [facility] in [place] for transfer. Dr. Dorsey, presser and shaper knitted goods, excepted patient for transfer. He recommends adding on vancomycin. They would like the results of the COVID swab to be resulted prior to giving a bed assignment. 2259 COVID negative. [facility] called and informed of negative COVID status. They provided a bed and report number at this time. Several attempts for ground transportation was tried. Unable to secure ground transport. Patient will be transferred by helicopter. Patient requesting phenergan for nausea for the flight due to motion sickness. (FERMIN BLACKMAN APRN) ECG Initial ECG Impression Date: Mar 05, 2023 Initial ECG Impression Time: 19:02 Initial ECG Rate: 158 Initial ECG Rhythm: A Fib/Flutter Initial ECG Intervals: Normal Initial ECG Impression: Atrial Fibrillation w/RVR Initial ECG Comparisson: Unchanged Comment Minimal ST depression in V2, V3, V4, V5, V6. No acute significant Q waves or T wave inversion. EKG : EKG Time: 19:43 Rate: 95 Rhythm: A Fib/Flutter Intervals: Normal ECG Comparisson: Changed Comment ST depression improved on repeat EKG once heart rate was decreased. (FERMIN BLACKMAN APRN) Diagnostic Imaging Diagonstic Imaging: Xray Plain Films/CT/US/NM/MRI: chest Comments [facility], [place], [place] NAME: BREANNAKATHERINEROSMERY [facility] REC#: [id number] PT STATUS: REG ER : 1940 PHYSICIAN: FERMIN BLACKMAN APRN ADMIT DATE: 03/05/23/ER Draft Date of Exam:03/05/23 CHEST 1 VIEW, AP/PA ONLY CLINICAL INDICATIONS: Patient with lower extremity weakness. EXAM: Portable chest x-ray upright view. COMPARISON: Chest x-ray dated 02/26/2023. FINDINGS: There is interval development of cardiomegaly and pulmonary vascular congestion. There is increased airspace opacities throughout the right lung and left lung base region. There is slight blunting of both costophrenic angle regions and pleural effusions may be considered. There is no pneumothorax. There are degenerative spurs involving the spine. IMPRESSION: 1: There is cardiomegaly with progression of pulmonary vascular congestion which can be seen with congestive heart failure. 2: There is interval development of airspace opacities throughout the right lung and left lung base region which may relate to pulmonary congestion, but infectious infiltrate should also be excluded. Dictated on workstation # [id number] Dict: 03/05/231956 Trans: 03/05/232002 CVB [id number] Interpreted by: ANOOP TUTTLE MD Electronically signed by: Diagonstic Imaging: CT Plain Films/CT/US/NM/MRI: chest, abdomen, pelvis Comments [facility] [place], [place] NAME: ROSMERY CARLOS [facility] REC#: [id number] PT STATUS: REG ER : 1940 PHYSICIAN: FERMIN BLACKMAN APRN ADMIT DATE: 03/05/23/ER Draft Date of Exam:03/05/23 CT ARISTEO CHEST/NOANG ABD-PELV W CLINICAL INDICATIONS: Patient with hypoxia and elevated D-dimer. EXAM: CT angiogram of the chest, abdomen, and pelvis performed with IV contrast. A total of 62 mL of Omnipaque 350 IV contrast was given. Sagittal and coronal MIP images were created to better evaluate anatomy. COMPARISON: CT angiogram of the chest, abdomen, and pelvis without contrast dated 02/26/2023. FINDINGS: There is interval progression of interlobular septal thickening. There is subsegmental consolidation of the right lower lobe and mild atelectasis involving the posterior aspect of left lower lobe. There is mild groundglass opacification involving both lungs. There is cardiomegaly. There is no evidence of pulmonary embolism. There are secretions within the lower lobe bronchi possibly mucus plugging. There is no thoracic aortic aneurysm. There is no significant mediastinal or hilar lymphadenopathy developed in interim. There is no significant axillary lymphadenopathy. The liver, spleen, pancreas, gallbladder, and adrenal glands unremarkable and stable. A slight granuloma involving the spleen is seen. Again seen fat stranding adjacent to the right kidney and right ureter. There is no stones seen as visualized. Bateman catheter seen within the bladder with small amount of fluid within the bladder. The left kidney are unremarkable, no hydronephrosis or mass. Uterus is surgically absent. There is a 2.1 cm cystic structure in the right pelvis region which may represent an adnexal cyst which is stable. Endovascular stent graft is again seen. There is hypodensity contrast within the aneurysmal sac. Prior noncontrast study showed no high density within the sac and this is concerning for an endoleak. The aneurysmal sac size is not significantly changed in interim measuring 5.2 cm x 4.9 cm in AP by transverse dimensions. 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 There is no intra-abdominal free air or free fluid. There is no lymphadenopathy in the abdomen or pelvis. There is no intestinal obstruction. The remainder of this exam shows no significant interval change compared to the prior study of comparison. IMPRESSION: 1: There is interval progression of interlobular septal thickening involving both lungs. These findings are concerning for interstitial edema possibly from pulmonary congestion/CHF. Cardiomegaly is seen. 2: There is fluid within both lower bronchi with possible mucus plugging. 3: There is atelectasis and consolidation involving both lung bases with the right side more than the left. 4: There is no evidence of pulmonary aneurysm. 5: There is stable size distal abdominal aorta with endovascular stent graft. There is concern for endoleak with contrast seen along the endovascular sac. Nonemergent vascular surgeon consultation is suggested. 5: There is persistent fat stranding adjacent right kidney and right ureter. Clinical correlation to exclude pyelonephritis is suggested. The remainder of this exam shows no significant interval change compared to the prior study of comparison. Dictated on workstation # [id number] Dict: 03/05/232130 Trans: 03/05/232147 CVB [id number] Interpreted by: ANOOP TUTTLE MD Electronically signed by: (FERMIN BLACKMAN APRN) Critical Care Note Critical Care Progress 60 minutes of critical care was provided by vt. Critical care time included initial assessment of the patient, bedside care, review of labs and imaging studies, discussion with transfer provider, debriefing with family, etc. (FERIMN BLACKMAN APRN) Departure Impression Primary Impression: Sepsis due to pneumonia Additional Impressions: Atrial fibrillation with RVR Hypoxia Disposition: XFER SHT-TRM HOSP Condition: Critical Transfer Transfer Reason: Exceeds level of care (No ICU beds available here) Time Spoke to Accepting Phy: 22:[address] Dorsey, presser and shaper kn[employer]. Transfer Time: 22:22 Transfer Facility: [facility] Method of Transfer: Air (FERMIN BLACKMAN APRN) Departure-Patient Inst. Referrals: FOREIGN MARS MD (PCP/Family) Primary Care Physician ATTENDING PHYSICIAN NOTE: I was physically present as attending physician in the emergency department during the care of this patient, but I was not directly involved in the decision making or delivery of care for this patient. (SHIELA KAHN MD) FERMIN BLACKMAN APRN Mar 05, 2023 19:09 SHIELA KAHN MD Mar 08, 2023 11:14
[2023-03-05 19:15] LABS: ABG BASE EXCESS -0.1 MMOL/L (-2.5-2.5); ABG OXYGEN SATURATION 20 % (94-100); ABG PCO2 63 MMHG (35-45); ABG TCO2 27.4 MMOL/L (21.0-31.0)
[2023-03-05 19:16] LABS: BASOPHILS % (AUTO) 0 % (0-10); EOSINOPHILS % (AUTO) 0 % (0-10); HEMATOCRIT 35 % (35-52); HEMOGLOBIN 11.2 g/dL (11.5-16.0); LYMPHOCYTES # (AUTO) 0.3 10^3/uL (1.0-4.0); LYMPHOCYTES % (AUTO) 6 % (12-44); MEAN CORPUSCULAR HEMOGLOBIN 30 pg (25-34); MEAN CORPUSCULAR HGB CONC 32 g/dL (32-36); MEAN CORPUSCULAR VOLUME 94 fL (80-99); MEAN PLATELET VOLUME 9.3 fL (9.0-12.2); MONOCYTES % (AUTO) 1 % (0-12); NEUTROPHILS # (AUTO) 4.4 10^3/uL (1.8-7.8); NEUTROPHILS % (AUTO) 92 % (42-75); PLATELET COUNT 334 10^3/uL (130-400); WHITE BLOOD COUNT 4.7 10^3/uL (4.3-11.0)
[2023-03-05 19:17] LABS: INSPIRED O2 6L
[2023-03-05 19:18] LABS: PATIENT TEMP 39.6
[2023-03-05 19:21] LABS: ABG PH 7.25 (7.37-7.43)
[2023-03-05 19:22] LABS: ABG PO2 25 MMHG (79-93)
[2023-03-05 19:27] LABS: INR 1.5 (0.8-1.4); PROTHROMBIN TIME PATIENT 18.4 SEC (12.2-14.7)
[2023-03-05 19:33] LABS: BAND NEUTROPHILS 43 %; EOSINOPHILS % (MANUAL) 1 %; LYMPHOCYTES % (MANUAL) 11 %; NEUTROPHILS % (MANUAL) 45 %
[2023-03-05 19:34] LABS: POLYCHROMASIA SLIGHT
[2023-03-05 19:37] LABS: FIBRIN DEGRADATION PRODUCTS 4.4 UG/ML (0.00-0.49)
[2023-03-05 19:52] LABS: ALBUMIN 3.5 GM/DL (3.2-4.5); BILIRUBIN,TOTAL 0.7 MG/DL (0.1-1.0); CALCIUM 9.3 MG/DL (8.5-10.1); CREATININE SERUM 1.15 MG/DL (0.60-1.30); POTASSIUM 3.5 MMOL/L (3.6-5.0); TOTAL PROTEIN 6.8 GM/DL (6.4-8.2)
--- NOTE | 2023-03-05 20:04 | Diagnostic Imaging Report ---
CLINICAL INDICATIONS: Patient with lower extremity weakness. EXAM: Portable chest x-ray upright view. COMPARISON: Chest x-ray dated 02/26/2023. FINDINGS: There is interval development of cardiomegaly and pulmonary vascular congestion. There is increased airspace opacities throughout the right lung and left lung base region. There is slight blunting of both costophrenic angle regions and pleural effusions may be considered. There is no pneumothorax. There are degenerative spurs involving the spine. IMPRESSION: 1: There is cardiomegaly with progression of pulmonary vascular congestion which can be seen with congestive heart failure. 2: There is interval development of airspace opacities throughout the right lung and left lung base region which may relate to pulmonary congestion, but infectious infiltrate should also be excluded. Dictated by: Dictated on workstation # [id number]
[2023-03-05] MEDS ORDERED: IOHEXOL 350 MG/ML 100 ML (OMNIPAQUE 350) VIAL IV ONE (20:30)
[2023-03-05] MEDS ORDERED: HOLD METFORMIN - RECEIVED CONTRAST 20 ML VIAL IV SCH (20:30)
[2023-03-05] MEDS ORDERED: NS 100 ML (IVPB) BAG IV ONE (20:30)
[2023-03-05 20:32] LABS: BILIRUBIN,URINE NEGATIVE (NEGATIVE); CLARITY,URINE CLEAR; COLOR,URINE YELLOW; GLUCOSE, URINE (UA) NEGATIVE (NEGATIVE); KETONES,URINE NEGATIVE (NEGATIVE); LEUKOCYTE ESTERASE ,URINE NEGATIVE (NEGATIVE); NITRITE,URINE NEGATIVE (NEGATIVE); PROTEIN,URINE 1+ (NEGATIVE)
[2023-03-05 20:40] LABS: BACTERIA,URINE FEW /HPF; WBC,URINE 0-2 /HPF
[2023-03-05 20:41] LABS: AMORPHOUS SEDIMENT,UR FEW AMOR URATES /LPF; GRANULAR CASTS,URINE RARE /LPF
[2023-03-05] MEDS ORDERED: CEFEPIME INJECTION 1,000 MG in NS (IVPB) 50 ML IV ONE (21:00)
[2023-03-05 21:01] LABS: ABG BASE EXCESS -0.6 MMOL/L (-2.5-2.5); ABG OXYGEN SATURATION 40 % (94-100); ABG PCO2 52 MMHG (35-45); ABG TCO2 26.5 MMOL/L (21.0-31.0)
[2023-03-05 21:03] LABS: ABG PO2 28 MMHG (79-93); ALLENS TEST YES-POS; INSPIRED O2 6L; VENTILATOR NO
--- NOTE | 2023-03-05 21:49 | Diagnostic Imaging Report ---
CLINICAL INDICATIONS: Patient with hypoxia and elevated D-dimer. EXAM: CT angiogram of the chest, abdomen, and pelvis performed with IV contrast. A total of 62 mL of Omnipaque 350 IV contrast was given. Sagittal and coronal MIP images were created to better evaluate anatomy. COMPARISON: CT angiogram of the chest, abdomen, and pelvis without contrast dated 02/26/2023. FINDINGS: There is interval progression of interlobular septal thickening. There is subsegmental consolidation of the right lower lobe and mild atelectasis involving the posterior aspect of left lower lobe. There is mild groundglass opacification involving both lungs. There is cardiomegaly. There is no evidence of pulmonary embolism. There are secretions within the lower lobe bronchi possibly mucus plugging. There is no thoracic aortic aneurysm. There is no significant mediastinal or hilar lymphadenopathy developed in interim. There is no significant axillary lymphadenopathy. The liver, spleen, pancreas, gallbladder, and adrenal glands unremarkable and stable. A slight granuloma involving the spleen is seen. Again seen fat stranding adjacent to the right kidney and right ureter. There is no stones seen as visualized. Bateman catheter seen within the bladder with small amount of fluid within the bladder. The left kidney are unremarkable, no hydronephrosis or mass. Uterus is surgically absent. There is a 2.1 cm cystic structure in the right pelvis region which may represent an adnexal cyst which is stable. Endovascular stent graft is again seen. There is hypodensity contrast within the aneurysmal sac. Prior noncontrast study showed no high density within the sac and this is concerning for an endoleak. The aneurysmal sac size is not significantly changed in interim measuring 5.2 cm x 4.9 cm in AP by transverse dimensions. 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 There is no intra-abdominal free air or free fluid. There is no lymphadenopathy in the abdomen or pelvis. There is no intestinal obstruction. The remainder of this exam shows no significant interval change compared to the prior study of comparison. IMPRESSION: 1: There is interval progression of interlobular septal thickening involving both lungs. These findings are concerning for interstitial edema possibly from pulmonary congestion/CHF. Cardiomegaly is seen. 2: There is fluid within both lower bronchi with possible mucus plugging. 3: There is atelectasis and consolidation involving both lung bases with the right side more than the left. 4: There is no evidence of pulmonary aneurysm. 5: There is stable size distal abdominal aorta with endovascular stent graft. There is concern for endoleak with contrast seen along the endovascular sac. Nonemergent vascular surgeon consultation is suggested. 5: There is persistent fat stranding adjacent right kidney and right ureter. Clinical correlation to exclude pyelonephritis is suggested. The remainder of this exam shows no significant interval change compared to the prior study of comparison. Dictated by: Dictated on workstation # [id number]
[2023-03-05] MEDS ORDERED: VANCOMYCIN INJECTION 1,000 MG in NS (IVPB) 250 ML IV ONE (22:15)
[2023-03-06] VITALS: BP 109/76
[2023-03-06] MEDS ORDERED: PROMETHAZINE INJ 25 MG/ML (PHENERGAN) AMP IVP ONE
[2023-03-06] MEDS ORDERED: METOCLOPRAMIDE INJ 10 MG/2 ML (REGLAN) IVP ONE
== END 2023-03-06 00:43 | disposition short-term general hospital (02) ==
LOC: EDUNIT# 18:42 → ER 18:43
DX: A41.9 Sepsis, unspecified organism (principal); J18.9 Pneumonia, unspecified organism; I48.91 Unspecified atrial fibrillation; R09.02 Hypoxemia; I51.7 Cardiomegaly; Z79.01 Long term (current) use of anticoagulants; Z20.822 Contact with and (suspected) exposure to COVID-19; Z99.81 Dependence on supplemental oxygen
CPT/HCPCS: 36415; 51702; 71045; 71275; 74177; 80053; 81000; 82805; 83605; 83880; 85007; 85027; 85379; 85610; 85730; 87040; 87088; 87636; 93005

== ENCOUNTER → 2023-03-18 | Outpatient (CLI) | payer MEDICARE ==
--- NOTE | 2023-03-18 15:40 | Diagnostic Imaging Report ---
EXAMINATION: Chest 2 view HISTORY: PNA COMPARISON: None available. FINDINGS: Heart size and pulmonary vasculature are normal. The lungs are clear without consolidation, pleural effusion, or pneumothorax. The osseous structures are intact. IMPRESSION: 1. No acute radiographic abnormality in the chest. Dictated by: Dictated on workstation # [id number]
== END ==
LOC: RAD 14:45
PROVIDERS: ATTEND Physician Assistant
DX: J18.9 Pneumonia, unspecified organism (principal); I48.91 Unspecified atrial fibrillation
CPT/HCPCS: 71046

== ENCOUNTER 2023-05-10 15:38 | Emergency (ER) | payer MEDICARE ==
[~2023-05-10] VITALS: Ht 162 cm; Wt 75.0 kg
[2023-05-10] MEDS ORDERED: NS IV 500 ML 500 ML IV STA (16:13)
--- NOTE | 2023-05-10 16:13 | ED General ---
General Chief Complaint: General Problems/Pain Stated Complaint: DIZZY - UNABLE TO EAT Nursing Triage Note: PT TO ROOM 9 PT CO OF NOT FEELING WELL SINCE LAST WEDNESDAY, PT STATES HAS DIZZINESS, LACK OF APPETITE, WEAKNESS. Source of Information: Patient, Old Records Exam Limitations: No Limitations History of Present Illness Date Seen by Provider: May 10, 2023 Time Seen by Provider: 15:41 Initial Comments 82-year-old female with past medical history most notable for A-fib on Xarelto and prior AAA repair coming in due to general malaise since Wednesday, lightheaded, lack of appetite, generally weak. She also has noted increasing cough and mild dyspnea. She is unsure if she has been around anyone sick. Denies any fever, chest pain, abdominal pain, vomiting, constipation, focal weakness or numbness. She does some diarrhea earlier last week which was nonbloody. Otherwise denying any other acute complaints. Has not taken any medicine since Wednesday. Allergies and Home Medications Allergies Coded Allergies: NSAIDS (Non-Steroidal Anti-Inflamma (Verified Allergy, Unknown, 03/21/09) Patient Home Medication List Home Medication List Reviewed: Yes Alendronate Sodium (Alendronate Sodium) 70 Mg Tablet, 70 MG PO WED, (Reported) Entered as Reported by: FRANCESCA VILLARREAL on 06/18/21 0841 Amoxicillin/Potassium Clav (Augmentin 500-125 Tablet) 500 Mg-125 Mg Tablet, 1 EACH PO TID Prescribed by: FOREIGN MARS on 01/23/23 0848 Atorvastatin Calcium (Atorvastatin Calcium) 10 Mg Tablet, 10 MG PO DAILY, (Reported) Entered as Reported by: CHARLIE WATT on 01/20/23 1059 Cholecalciferol (Vitamin D3) (Vitamin D3) 125 Mcg (5000 Unit) Tablet, 125 MCG PO HS, (Reported) Entered as Reported by: BRIAN MAURO on 11/11/22 1230 L.acidoph & Paracasei,B.lactis (Probiotic) 10 Billion Cell Capsule, 1 EACH PO TID Prescribed by: FOREIGN MARS on 01/23/23 0848 Losartan Potassium (Losartan Potassium) 50 Mg Tablet, 50 MG PO DAILY, (Reported) Entered as Reported by: CHARLIE WATT on 01/20/23 1102 Metoprolol Succinate (Metoprolol Succinate) 50 Mg Tab.er.24h, 50 MG PO HS, (Reported) Entered as Reported by: CHARLIE WATT on 01/20/23 1059 Ondansetron (Ondansetron Odt) 4 Mg Tab.rapdis, 4 MG SL Q6H PRN for NAUSEA/VOMITING Prescribed by: NEMO RAMOS on 05/10/23 1731 Oxybutynin Chloride (Oxybutynin Chloride) 5 Mg Tablet, 5 MG PO BID Prescribed by: FOREIGN MARS on 01/23/23 0848 Pantoprazole Sodium (Pantoprazole Sodium) 40 Mg Tablet.dr, 40 MG PO BID, (Reported) Entered as Reported by: BRIAN MAURO on 11/11/22 1230 Potassium Chloride (Potassium Chloride) 20 Meq Tablet.er, 40 MEQ PO BID, (Reported) Entered as Reported by: CHARLIE WATT on 01/20/23 1106 Rivaroxaban (Xarelto) 20 Mg Tablet, 20 MG PO DAILY, (Reported) Entered as Reported by: BRIAN MAURO on 11/11/22 1233 Sucralfate (Sucralfate) 1 Gram Tablet, 1 GM PO HS, (Reported) Entered as Reported by: BRIAN MAURO on 11/11/22 1230 Tramadol HCl (Tramadol HCl) 50 Mg Tablet, 50 MG PO HS, (Reported) Entered as Reported by: SHANTI MANUEL on 11/28/18 1607 Review of Systems Review of Systems Constitutional: No fever EENTM: no symptoms reported Respiratory: see HPI Cardiovascular: no symptoms reported Gastrointestinal: see HPI Genitourinary: no symptoms reported Musculoskeletal: no symptoms reported Skin: no symptoms reported Psychiatric/Neurological: No Symptoms Reported Past Nfihnvr-Geqcew-Lfrxja Hx Patient Social History Tobacco Use?: No Substance use?: No Alcohol Use?: No Pt feels they are or have been: No Immunizations Up To Date Tetanus Booster (TDap): Unknown PED Vaccines UTD: Yes First/Initial COVID19 Vaccinat: DECEMBER 2020 Second COVID19 Vaccination Sanjeev: DECEMBER 2020 Third COVID19 Vaccination Date: DECEMBER 2020 Seasonal Allergies Seasonal Allergies: Yes Past Medical History Surgery/Hospitalization HX: HTN, A FIB, GERD, ANEURYSM, BILAT TKR AAA REPAIR Surgeries: Yes (BILATERAL KNEE REPLACEMENT) Hysterectomy, Joint Replacement, Orthopedic, Tonsillectomy, Tubal Ligation Respiratory: Yes (hx. 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 Heart Disease, Hypertension ADMITTED 03/2022 AND DX WITH COVID-19 INFECTION AND NEW ONSET OF ATRIAL FIBRILLATION, AND NSTEMI. CARDIAC CATH 11/11/[address] SIDDIQUI: CONCLUSION: 1. Mild coronary artery disease nonobstructive disease 2. Normal left ventricular end-diastolic pressure 3. 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 I was unable to evaluate the abdominal aorta DISCUSSION AND RECOMMENDATION: Medical therapy is recommended no intervention is needed Physical Exam Vital Signs Vital Signs - First Documented 05/10/23 15:50 Temp 36.7 Pulse 93 Resp 18 B/P (MAP) 141/86 (104) Pulse Ox 95 O2 Delivery Room Air Capillary Refill : Less Than 3 Seconds Height, Weight, BMI Height: 5'6.00" Weight: 167lbs. 6.0oz. 75.039100ma; 28.00 BMI Method:Stated General Appearance: No Apparent Distress, WD/WN Eyes: Bilateral Eye Normal Inspection, Bilateral Eye PERRL, Bilateral Eye EOMI HEENT: PERRL/EOMI, Normal ENT Inspection, Pharynx Normal Neck: Full Range of Motion, Normal Inspection, Non Tender, Supple Respiratory: Chest Non Tender, Lungs Clear, Normal Breath Sounds, No Accessory Muscle Use, No Respiratory Distress Cardiovascular: Normal Peripheral Pulses, Irregularly Irregular Gastrointestinal: Normal Bowel Sounds, Non Tender, Soft; No Distended, No Guarding Back: Normal Inspection, No CVA Tenderness Extremity: Normal Capillary Refill, Normal Inspection, Normal Range of Motion, Non Tender, No Calf Tenderness Neurologic/Psychiatric: Alert, Oriented x3, No Motor/Sensory Deficits, Normal Mood/Affect, mess attendant crew II-XII Norm as Tested, Other (Normal ulkgot-ek-ohas, normal airy-iw-csvy, normal visual shukla and visual acuity, normal voice and speech) Skin: Normal Color, Warm/Dry Progress/Results/Core Measures Suspected Sepsis SIRS Temperature: Pulse: 93 Respiratory Rate: 18 Laboratory Tests 05/10/23 15:56: White Blood Count 8.1 Blood Pressure 141 /86 Mean: 104 Laboratory Tests 05/10/23 15:56: Platelet Count 238 05/10/23 16:05: Creatinine 1.00, INR Comment 1.2, Total Bilirubin 0.4 Results/Orders Lab Results Laboratory Tests Test 05/10/23 15:56 05/10/23 16:05 05/10/23 16:45 Range/Units White Blood Count 8.1 4.3-11.0 10^3/uL Red Blood Count 4.22 3.80-5.11 10^6/uL Hemoglobin 12.4 11.5-16.0 g/dL Hematocrit 39 35-52 % Mean Corpuscular Volume 93 80-99 fL Mean Corpuscular Hemoglobin 29 25-34 pg Mean Corpuscular Hemoglobin Concent 32 32-36 g/dL Red Cell Distribution Width 14.5 10.0-14.5 % Platelet Count 238 130-400 10^3/uL Mean Platelet Volume 10.2 9.0-12.2 fL Immature Granulocyte % (Auto) 0 % Neutrophils (%) (Auto) 66 42-75 % Lymphocytes (%) (Auto) 23 12-44 % Monocytes (%) (Auto) 9 0-12 % Eosinophils (%) (Auto) 1 0-10 % Basophils (%) (Auto) 0 0-10 % Neutrophils # (Auto) 5.4 1.8-7.8 10^3/uL Lymphocytes # (Auto) 1.8 1.0-4.0 10^3/uL Monocytes # (Auto) 0.8 0.0-1.0 10^3/uL Eosinophils # (Auto) 0.1 0.0-0.3 10^3/uL Basophils # (Auto) 0.0 0.0-0.1 10^3/uL Immature Granulocyte # (Auto) 0.0 0.0-0.1 10^3/uL Prothrombin Time 14.9 H 12.2-14.7 SEC INR Comment 1.2 0.8-1.4 Activated Partial Thromboplast Time 31 24-35 SEC Sodium Level 138 135-145 MMOL/L Potassium Level 4.6 3.6-5.0 MMOL/L Chloride Level 107 98-107 MMOL/L Carbon Dioxide Level 17 L 21-32 MMOL/L Anion Gap 14 5-14 MMOL/L Blood Urea Nitrogen 10 7-18 MG/DL Creatinine 1.00 0.60-1.30 MG/DL Estimat Glomerular Filtration Rate 56 BUN/Creatinine Ratio 10 Glucose Level 103 70-105 MG/DL Calcium Level 9.0 8.5-10.1 MG/DL Corrected Calcium 9.1 8.5-10.1 MG/DL Magnesium Level 2.0 1.6-2.4 MG/DL Total Bilirubin 0.4 0.1-1.0 MG/DL Aspartate Amino Transf (AST/SGOT) 28 5-34 U/L Alanine Aminotransferase (ALT/SGPT) 13 0-55 U/L Alkaline Phosphatase 94 40-136 U/L Troponin I < 0.028 <0.028 NG/ML B-Type Natriuretic Peptide 362.3 H <100.0 PG/ML Total Protein 8.2 6.4-8.2 GM/DL Albumin 3.9 3.2-4.5 GM/DL Influenza Type A (RT-PCR) Not Detected Not Detecte Influenza Type B (RT-PCR) Not Detected Not Detecte SARS-CoV-2 RNA (RT-PCR) Not Detected Not Detecte My Orders Orders - NEMO RAMOS MD Ed Iv/Invasive Line Start (05/10/23 15:59) Ekg Tracing (05/10/23 15:59) Monitor-Rhythm Ecg Trace Only (05/10/23 15:59) Orthostatic Vital Signs (Adult (05/10/23 15:59) Chest 1 View, Ap/Pa Only (05/10/23 15:59) Bnp [place] (05/10/23 15:59) Cbc With Automated Diff (05/10/23 15:59) Comprehensive Metabolic Panel (05/10/23 15:59) Magnesium (05/10/23 15:59) Protime With Inr (05/10/23 15:59) Partial Thromboplastin Time (05/10/23 15:59) Troponin I [place] (05/10/23 15:59) Influenza A And B By Pcr (05/10/23 15:59) Covid 19 Inhouse Test (05/10/23 15:59) Ns Iv 500 Ml (Sodium Chloride 0.9%) (05/10/23 16:13) Ondansetron Injection (Zofran Injectio (05/10/23 16:15) Acetaminophen Tablet (Acetaminophen Ta (05/10/23 16:15) Rivaroxaban Tablet (Xarelto Tablet) (05/10/23 16:30) Metoprolol Succinate (Xl) Tab (Toprol Xl (05/10/23 16:30) Medications Given in ED Current Medications Medications Dose Ordered Sig/Diana Route Start Time Stop Time Status Last Admin Dose Admin Acetaminophen 1,000 mg ONCE ONCE PO 05/10/23 16:15 05/10/23 16:16 DC 05/10/23 16:53 1,000 MG Ondansetron HCl 4 mg ONCE ONCE IVP 05/10/23 16:15 05/10/23 16:16 DC 05/10/23 16:45 4 MG Rivaroxaban 20 mg ONCE ONCE PO 05/10/23 16:30 05/10/23 16:31 DC 05/10/23 16:53 20 MG Vital Signs/I&O 05/10/23 05/10/23 15:50 17:00 Temp 36.7 Pulse 93 88 101 112 Resp 18 B/P (MAP) 141/86 (104) 116/79 (91) 134/101 (112) 116/88 (97) Pulse Ox 95 O2 Delivery Room Air Capillary Refill : Less Than 3 Seconds Blood Pressure Mean: 104 Progress Note : Progress Note 82-year-old female with above history just coming in due to mostly general malaise. ABCs were intact and vitals were stable on presentation. She is in A- fib chronically, her heart rates ranging from the 70s to just at 100, majority of the time is in the 80s well controlled despite not taking her medications today. Physical exam reassuring including a soft and nontender abdomen. Her neuro exam is completely nonfocal and the patient was able to ambulate without difficulty. She certainly has no symptoms of posterior stroke or anything focal in regards to her lightheadedness. An IV was placed and she was given Zofran for nausea and she was given all of her p.o. medications including her metoprolol and her Xarelto. Basic labs significant for normal white blood cell count, essentially unremarkable electrolytes, normal creatinine, negative COVID and flu test. Considered getting a urinalysis, however the patient is not having any dysuria or urinary frequency, so we will forego this at this time. Chest x-ray ordered and interpreted by me showing no obvious pneumonia or pulmonary edema. The patient was given a gentle bolus of IV fluids on reassessment seemed to be in better spirits. She has been nontoxic this entire visit and is tolerating p.o. I believe she stable for discharge with outpatient follow-up. She was sent home with strict return precautions. Prescription sent for nausea medications. Prior to discharge, repeat abdominal exam once again reassuring, I do not believe CT imaging is warranted at this time. ECG Initial ECG Impression Date: May 10, 2023 Initial ECG Impression Time: 16:14 Initial ECG Rate: 105 Initial ECG Rhythm: A Fib/Flutter Comment Narrow QRS, normal axis, no STEMI, appears similar to prior EKG although a slower Diagnostic Imaging Diagonstic Imaging: Xray (chest) Comments [facility]. [place], [place] NAME: ROSMERY CARLOS [facility] REC#: [id number] PT STATUS: REG ER : 1940 PHYSICIAN: NEMO RAMOS MD ADMIT DATE: 05/10/23/ER Signed Date of Exam:05/10/23 CHEST 1 VIEW, AP/PA ONLY INDICATION: Shortness of breath. COMPARISON is made with prior exam of 03/05/2023. FINDINGS: The heart size, mediastinal configuration, and pulmonary vascularity are within normal limits. There is no pleural effusion, pneumothorax, or pneumonia. The osseous structures are unremarkable. IMPRESSION: No acute cardiopulmonary abnormality. Dictated by: Dictated on workstation # [id number] Dict: 05/10/23 1630 Trans: 05/10/231636 [facility] [id number] Interpreted by: JONA AQUINO MD Electronically signed by: JONA AQUINO MD 05/10/231636 Departure Impression Primary Impression: Viral syndrome Additional Impression: Nausea alone Disposition: 01 HOME, SELF-CARE Condition: Stable Departure-Patient Inst. Decision time for Depature: 17:40 Referrals: FOREIGN MARS MD (PCP/Family) Primary Care Physician Patient Instructions: Nausea and Vomiting, Adult ED Add. Discharge Instructions: It appears like you have a viral syndrome that will take some time to improve. Nausea medicines were sent to your pharmacy. Please follow-up with your regular doctor if you are not seeing improvement in the next couple of days. Come back to the ER if you have any severe chest pain, shortness of breath, weakness or numbness or you cannot feel or move 1 side of your body, or any other life threatening concerns. Scripts Ondansetron (Ondansetron Odt) 4 Mg Tab.rapdis 4 MG SL Q6H PRN for NAUSEA/VOMITING for 5 Days, #20 TAB Prov: NEMO RAMOS MD 05/10/23 NEMO RAMOS MD May 10, 2023 16:13
[2023-05-10] MEDS ORDERED: ONDANSETRON 4 MG/2 ML (SDV) Z0FRAN IVP ONE (16:15)
[2023-05-10] MEDS ORDERED: ACETAMINOPHEN 500 MG TABLET PO ONE (16:15)
[2023-05-10 16:17] LABS: BASOPHILS % (AUTO) 0 % (0-10); EOSINOPHILS # (AUTO) 0.1 10^3/uL (0.0-0.3); EOSINOPHILS % (AUTO) 1 % (0-10); HEMATOCRIT 39 % (35-52); HEMOGLOBIN 12.4 g/dL (11.5-16.0); LYMPHOCYTES # (AUTO) 1.8 10^3/uL (1.0-4.0); LYMPHOCYTES % (AUTO) 23 % (12-44); MEAN CORPUSCULAR HEMOGLOBIN 29 pg (25-34); MEAN CORPUSCULAR HGB CONC 32 g/dL (32-36); MEAN CORPUSCULAR VOLUME 93 fL (80-99); MEAN PLATELET VOLUME 10.2 fL (9.0-12.2); MONOCYTES # (AUTO) 0.8 10^3/uL (0.0-1.0); MONOCYTES % (AUTO) 9 % (0-12); NEUTROPHILS # (AUTO) 5.4 10^3/uL (1.8-7.8); NEUTROPHILS % (AUTO) 66 % (42-75); PLATELET COUNT 238 10^3/uL (130-400); WHITE BLOOD COUNT 8.1 10^3/uL (4.3-11.0)
[2023-05-10] MEDS ORDERED: RIVAROXABAN 20 MG TABLET (XARELTO) PO ONE (16:30)
--- NOTE | 2023-05-10 16:31 | Diagnostic Imaging Report ---
INDICATION: Shortness of breath. COMPARISON is made with prior exam of 03/05/2023. FINDINGS: The heart size, mediastinal configuration, and pulmonary vascularity are within normal limits. There is no pleural effusion, pneumothorax, or pneumonia. The osseous structures are unremarkable. IMPRESSION: No acute cardiopulmonary abnormality. Dictated by: Dictated on workstation # [id number]
[2023-05-10 16:38] LABS: ALBUMIN 3.9 GM/DL (3.2-4.5); CHLORIDE 107 MMOL/L (98-107)
[2023-05-10 16:39] LABS: POTASSIUM 4.6 MMOL/L (3.6-5.0); SODIUM 138 MMOL/L (135-145)
[2023-05-10 16:41] LABS: GLUCOSE 103 MG/DL (70-105); TOTAL PROTEIN 8.2 GM/DL (6.4-8.2)
[2023-05-10 16:42] LABS: CARBON DIOXIDE 17 MMOL/L (21-32); INR 1.2 (0.8-1.4); PROTHROMBIN TIME PATIENT 14.9 SEC (12.2-14.7)
[2023-05-10 16:43] LABS: BILIRUBIN,TOTAL 0.4 MG/DL (0.1-1.0)
[2023-05-10 16:44] LABS: ALKALINE PHOSPHATASE 94 U/L (40-136)
[2023-05-10 16:45] LABS: GFR ESTIMATED 56
[2023-05-10 16:46] LABS: BUN/CREATININE RATIO 10
[2023-05-10 16:47] LABS: ALANINE AMINOTRANSFERASE 13 U/L (0-55)
[2023-05-10 17:00] VITALS: BP_SYST 116; BP_SYST 134; BP_DIAS 101; BP_DIAS 79; BP_DIAS 88
[2023-05-10] MEDS ORDERED: ONDA4TAB11 SL (17:31)
[2023-05-10 17:48] VITALS: BP 116/88
== END 2023-05-10 17:48 | disposition home or self-care (01) ==
LOC: EDUNIT# 15:38 → ER 15:39
DX: B34.9 Viral infection, unspecified (principal); R11.0 Nausea; I48.91 Unspecified atrial fibrillation; R42 Dizziness and giddiness; R53.1 Weakness; R63.0 Anorexia; R05.9 Cough, unspecified; R53.81 Other malaise; R06.00 Dyspnea, unspecified; Z20.822 Contact with and (suspected) exposure to COVID-19; Z79.01 Long term (current) use of anticoagulants
CPT/HCPCS: 36415; 71045; 80053; 83735; 83880; 84484; 85025; 85610; 85730; 87636; 93005; 93041

== ENCOUNTER 2023-05-19 05:40 | Outpatient (CLI) | payer MEDICARE ==
[~2023-05-19] VITALS: Ht 167.6 cm; Wt 75.8 kg
== END 2023-05-20 13:32 | disposition home or self-care (01) ==
LOC: PREOP 05:40
PROVIDERS: ATTEND Surgery
DX: Z01.818 Encounter for other preprocedural examination (principal)

== ENCOUNTER 2023-05-19 08:33 | Day surgery (SDC) | payer MEDICARE ==
[~2023-05-19] VITALS: Ht 167 cm; Wt 76.0 kg
[2023-05-19] MEDS ORDERED: LIDOCAINE 1% INJ 20 ML VIAL ONE (08:39)
[2023-05-19] MEDS ORDERED: LIDOCAINE 1% INJ 20 ML VIAL INJ ONE (08:45)
[2023-05-19 08:47] VITALS: BP 135/89
--- NOTE | 2023-05-19 10:19 | Implantation of Loop Monitor ---
Implant of Loop Monitior IMPLANTATION OF LOOP MONITOR REPORT DATE OF PROCEDURE: 05/19/23 PREOP DIAGNOSIS: Paroxysmal atrial fibrillation POSTOP DIAGNOSIS: Paroxysmal atrial fibrillation PROCEDURE DETAILS: The patient is a 82 female with history of paroxysmal atrial fibrillation requiring long-term surveillance. Therefore implantable loop recorder was discussed and agreed with the patient. Informed consent was taken. All risks and complications were discussed at length. The patient was draped and prepped in the usual sterile fashion. Local anesthesia was lidocaine, which was given in the substernal area close to the 4th intercostal space. Loop monitor Glintstronic with serial number [id number] was implanted according to the protocol. Steri- Strips were placed at the end of the procedure. There were no complications and the patient tolerated the procedure well. The device was interrogated with a voltage of. ANESTHESIA: Local anesthesia with lidocaine. COMPLICATIONS: None CONTRAST/FLUOROSCOPY: None CONCLUSION: Successful implantation of loop monitor with no complication FINAL DIAGNOSIS: Paroxysmal atrial fibrillation Palpitation Hypertension Hyperlipidemia KEATON SIDDIQUI MD May 19, 2023 10:19
== END 2023-05-19 10:00 ==
LOC: CATH 08:33
PROVIDERS: ATTEND Internal Medicine Cardiovascular Disease
DX: I48.0 Paroxysmal atrial fibrillation (principal); I25.10 Atherosclerotic heart disease of native coronary artery without angina pectoris; E78.2 Mixed hyperlipidemia; I11.0 Hypertensive heart disease with heart failure; I50.32 Chronic diastolic (congestive) heart failure; J44.9 Chronic obstructive pulmonary disease, unspecified; I71.40 Abdominal aortic aneurysm, without rupture, unspecified; I65.23 Occlusion and stenosis of bilateral carotid arteries; K21.9 Gastro-esophageal reflux disease without esophagitis; G89.29 Other chronic pain; M54.9 Dorsalgia, unspecified; M48.00 Spinal stenosis, site unspecified; R63.0 Anorexia; R11.0 Nausea; E66.9 Obesity, unspecified; Z68.27 Body mass index [BMI] 27.0-27.9, adult; Z79.01 Long term (current) use of anticoagulants; Z77.22 Contact with and (suspected) exposure to environmental tobacco smoke (acute) (chronic); Z86.61 Personal history of infections of the central nervous system; Z79.899 Other long term (current) drug therapy
CPT/HCPCS: 33285; C1764

== ENCOUNTER 2023-06-01 10:17 | Day surgery (SDC) | payer MEDICARE ==
[~2023-06-01] VITALS: Ht 167.6 cm; Wt 75.8 kg
[2023-06-01] MEDS ORDERED: LACTATED RINGERS 1,000 ML 1,000 ML IV STA (10:22)
[2023-06-01] MEDS ORDERED: HURRICAINE EXT TUBE (BENZOCAINE) XX PRN (10:30)
[2023-06-01 10:45] VITALS: BP 151/104
[2023-06-01] MEDS ORDERED: proPOfol INJECTION 200 MG/20 ML VIAL IV ONE (11:02)
--- NOTE | 2023-06-01 11:04 | Progress Note-Pre Operative ---
Pre-Operative Progress Note Date H&P Reviewed: Jun 01, 2023 Time H&P Reviewed: 11:02 History & Physical: H&P Reviewed, Patient Examed, No changes noted Pre-Operative Diagnosis: unintentional weight loss, nausea NANCY RODRIGUEZ DO Jun 01, 2023 11:04
--- NOTE | 2023-06-01 11:35 | Progress Note-Post Operative ---
Post-Operative Progess Note Surgeon (s)/Ring Stamper (s) Surgeon NANCY RODRIGUEZ DO Ring Stamper: na Pre-Operative Diagnosis unintentional weight loss, nausea Post-Operative Diagnosis hiatal hernia, diverticulosis, slight sigmoid colitis Procedure & Operative Findings Date of Procedure 06/01/23 Procedure Performed/Findings EGD wit biopsies Colonoscopy with cold biopsy Anesthesia Type per MARKETING SPECIALIST Estimated Blood Loss Estimated blood loss (mL): none Specimens/Packing Specimens Removed antrum, GE, and sigmoid NANCY RODRIGUEZ DO Jun 01, 2023 11:35
[2023-06-01] MEDS ORDERED: PANT40TA2 PO (11:38)
--- NOTE | 2023-06-01 11:38 | Discharge Inst-Simple/Standard ---
Discharge Inst-Standard Discharge Medications New, Converted or Re-Newed RX: Transmitted to Pharmacy Patient Instructions/Follow Up Plan of Care/Instructions/FU: 2-3 weeks blane Activity as Tolerated: Yes Discharge Diet: Regular Diet NANCY RODRIGUEZ DO Jun 01, 2023 11:38
[2023-06-01 11:40] VITALS: BP 144/84
[2023-06-01 12:02] VITALS: BP 144/84
[2023-06-01 12:10] VITALS: BP 145/84
--- NOTE | 2023-06-01 13:01 | Anesthesia-General Post-Op ---
MAC Patient Condition Mental Status/LOC: Same as Preop Cardiovascular: Satisfactory Nausea/Vomiting: Absent Respiratory: Satisfactory Pain: Controlled Complications: Absent Post Op Complications Complications None Follow Up Care/Instructions Patient Instructions None needed. Anesthesiology Discharge Order Discharge Order Patient is doing well, no complaints, stable vital signs, no apparent adverse anesthesia problems. No complications reported per nursing. MILDRED KARIMI CRNA Jun 01, 2023 13:01
--- NOTE | 2023-06-01 17:13 | OPERATIVE REPORT ---
DATE OF SERVICE: 06/01/2023 PREOPERATIVE DIAGNOSES: Unintentional weight loss and nausea. POSTOPERATIVE DIAGNOSES: Hiatal hernia, diverticulosis, slight colitis appearance of the sigmoid. PROCEDURES: EGD with biopsies, colonoscopy with cold biopsy of sigmoid colitis. SURGEON: Nancy Sherman DO ANESTHESIA: Per BLUE PRINT CONTROL CLERK. ESTIMATED BLOOD LOSS: None. COMPLICATIONS: None. INDICATIONS: The patient is 82-year-old female with unintentional weight loss and nausea. She understands risks and benefits of procedure and wished to proceed. Consent was signed in chart. DESCRIPTION OF PROCEDURE: The patient was taken to the endoscopy suite, placed in left lateral recumbent position. Timeout was performed. Scope was inserted in the mouth, down the esophagus, stomach and into the duodenum without difficulty. No polyps, masses or ulcerations in the duodenum. Scope was slowly retracted back into stomach where it was further insufflated. No polyps, masses or ulcerations. Biopsy of the antrum was obtained. Scope was retroflexed noting a hiatal hernia. Scope was returned to its normal position, slowly withdrawn until distal esophagus. Biopsy of GE junction was obtained. Scope was slowly retracted back until completely removed noting no other pathology. Digital rectal exam was performed. No palpable polyps, masses or ulcerations. Scope was inserted in the rectum, advanced all the way to the cecum with minimal difficulty. Prep was adequate. Scope was slowly retracted back. No polyps, masses or ulcerations in the cecum, ascending, transverse, descending and sigmoid colon. Sigmoid colon has some slight colitis changes. Cold biopsy of this area was obtained. Also, noting diverticulosis. Scope was then continuously retracted back in the rectum where it was also retroflexed noting no other pathology. Scope was returned to its normal position, slowly withdrawn until completely removed. The patient tolerated the procedure well without any complications, taken to recovery room in stable condition. RECOMMENDATIONS: The patient will repeat colonoscopy on an as needed basis. He will follow up in 2 weeks to discuss pathology results. We will add Protonix 40 mg daily. We will see how her symptoms are doing in a couple of weeks. Job ID: [id number] DocumentID: [id number] Dictated Date: 06/01/2023 11:38:02 Composing Room Supervisor Date: 06/01/2023 17:11:00 Dictated By: NANCY SHERMAN DO
== END 2023-06-01 12:40 | disposition home or self-care (01) ==
LOC: ENDO 10:17
PROVIDERS: ATTEND Surgery
DX: K44.9 Diaphragmatic hernia without obstruction or gangrene (principal); K57.30 Diverticulosis of large intestine without perforation or abscess without bleeding; K52.9 Noninfective gastroenteritis and colitis, unspecified; R63.4 Abnormal weight loss; Z86.16 Personal history of COVID-19; Z79.01 Long term (current) use of anticoagulants; Z68.26 Body mass index [BMI] 26.0-26.9, adult

== ENCOUNTER 2023-08-19 12:56 | Emergency (ER) | payer MEDICARE ==
[~2023-08-19] VITALS: Ht 162.6 cm; Wt 73.9 kg
[~2023-08-19 12:56] MED LIST changes: -OXYB5TAB13 PO; +OXYB5TAB14 PO
--- NOTE | 2023-08-19 13:04 | ED Integumentary General ---
General Stated Complaint: LACERATION ON LT FINGER Source: patient Exam Limitations: no limitations (FERMIN TAPIA APRN) History of Present Illness Date Seen by Provider: Aug 19, 2023 Time Seen by Provider: 13:03 Initial Comments 83-year-old female presents to the ER with a lacerations to her left hand located on the palmar side of her second, third, and fourth digits. The deepest laceration is on the fourth digit. She cut her fingers while cutting potatoes for Thanksgiving dinner. She is uncertain of her last tetanus. (FERMIN TAPIA APRN) Allergies and Home Medications Allergies Coded Allergies: NSAIDS (Non-Steroidal Anti-Inflamma (Verified Allergy, Unknown, 03/21/09) Patient Home Medication List Home Medication List Reviewed: Yes (FERMIN TAPIA APRN) Alendronate Sodium (Alendronate Sodium) 70 Mg Tablet, 70 MG PO FRI, (Reported) Entered as Reported by: FRANCESCA VILLARREAL on 06/18/21 0841 Atorvastatin Calcium (Atorvastatin Calcium) 10 Mg Tablet, 10 MG PO DAILY, (Reported) Entered as Reported by: CHARLIE WATT on 01/20/23 1059 Cholecalciferol (Vitamin D3) (Vitamin D3) 125 Mcg (5000 Unit) Tablet, 125 MCG PO HS, (Reported) Entered as Reported by: BRIAN MAURO on 11/11/22 1230 Metoprolol Succinate (Metoprolol Succinate) 50 Mg Tab.er.24h, 50 MG PO HS, (Reported) Entered as Reported by: CHARLIE WATT on 01/20/23 1059 Oxybutynin Chloride (Oxybutynin Chloride) 5 Mg Tablet, 5 MG PO BID Prescribed by: FOREIGN MARS on 01/23/23 0848 Pantoprazole Sodium (Protonix) 40 Mg Tablet.dr, 40 MG PO DAILY Prescribed by: NANCY RODRIGUEZ on 06/01/23 1138 Rivaroxaban (Xarelto) 20 Mg Tablet, 20 MG PO DAILY, (Reported) Entered as Reported by: BRIAN MAURO on 11/11/22 1233 Sucralfate (Sucralfate) 1 Gram Tablet, 1 GM PO HS, (Reported) Entered as Reported by: BRIAN MAURO on 11/11/22 1230 Tramadol HCl (Tramadol HCl) 50 Mg Tablet, 50 MG PO HS, (Reported) Entered as Reported by: SHANTI MANUEL on 11/28/18 1607 Review of Systems Review of Systems Constitutional: see HPI (FERMIN TAPIA APRN) Past Odyzleg-Ehuqud-Ziccfn Hx Immunizations Up To Date Tetanus Booster (TDap): Unknown PED Vaccines UTD: Yes First/Initial COVID19 Vaccinat: DECEMBER 2020 Second COVID19 Vaccination Sanjeev: DECEMBER 2020 Third COVID19 Vaccination Date: DECEMBER 2020 (FERMIN TAPIA APRN) Seasonal Allergies Seasonal Allergies: Yes (FERMIN TAPIA APRN) Past Medical History Surgery/Hospitalization HX: HTN, A FIB, GERD, ANEURYSM, BILAT TKR AAA REPAIR Surgeries: Yes (BILATERAL KNEE REPLACEMENT) Hysterectomy, Joint Replacement, Orthopedic, Tonsillectomy, Tubal Ligation Respiratory: Yes (hx. of asthma yrs ago.; wears 02@1-2 at nite, COUGH) Asthma Currently Using CPAP: No Currently Using BIPAP: No Cardiac: Yes (CARDIAC CATH 11/11/22-MILD NON-OBSTRUCTIVE DISEASE; AAA ; ) Aneurysm, Atrial Fibrillation, Coronary Artery Disease, Heart Attack, High Afia sterol, Hypertension Neurological: No Reproductive Disorders: No NEGATIVE NOTCHER History: Tubal Ligation, Menopausal Sexually Transmitted Disease: No HIV/AIDS: No Genitourinary: Yes UTI-Chronic Gastrointestinal: Yes (CHRONIC NAUSEA) Gastroesophageal Reflux, Diverticulosis, Hiatal Hernia, Ulcer Musculoskeletal: Yes (LEFT SHOULDER PAIN, CHRONIC GENERALIZED PAIN/CHRONIC NECK PAIN;BILAT TKR) Arthritis, Chronic Back Pain Endocrine: No HEENT: Yes (GLASSES, UPPER DENTURES) Loss of Vision: Denies Hearing Impairment: Denies Cancer: No Psychosocial: No Integumentary: No Blood Disorders: No Adverse Reaction/Blood Tranf: No (N/A) (FERMIN TAPIA APRN) Family Medical History Patient reports no known family medical history. Heart Disease, Hypertension ADMITTED 03/2022 AND DX WITH COVID-19 INFECTION AND NEW ONSET OF ATRIAL FIBRILLATION, AND NSTEMI. CARDIAC CATH 11/11/[address] SIDDIQUI: CONCLUSION: 1. Mild coronary artery disease nonobstructive disease 2. Normal left ventricular end-diastolic pressure 3. 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 I was unable to evaluate the abdominal aorta DISCUSSION AND RECOMMENDATION: Medical therapy is recommended no intervention is needed (FERMIN TAPIA APRN) Physical Exam Vital Signs Vital Signs - First Documented 08/19/23 08/19/23 13:01 13:47 Temp 36.8 Pulse 67 Resp 19 B/P (MAP) 142/83 (102) Pulse Ox 98 O2 Delivery Room Air (SHIELA KAHN MD) Vital Signs Capillary Refill : (FERMIN TAPIA APRN) General Appearance: WD/WN, no apparent distress Neck: supple, normal inspection Cardiovascular: regular rate, rhythm Respiratory: lungs clear, normal breath sounds, no respiratory distress, no accessory muscle use Extremities: normal range of motion, normal inspection, other (Patient has full range of motion of all fingers of the left hand) Neurologic/Psychiatric: alert, normal mood/affect Skin: normal color, warm/dry Skin Problem Location: upper extremities (Left hand, second, third, fourth digits) Skin Problem Character: other (Superficial laceration to second and third digits, deep laceration to fourth digit) (FERMIN TAPIA APRN) Procedures/Interventions Wound Location: Upper Extremities Other Wound Location Left hand. Palmar side of second, third, fourth digits. Wound Length (cm): 1.5 Wound's Depth, Shape: linear Wound Explored: clean Irrigated w/ Saline (ccs): 200 Anesthesia: 1% Lidocaine Volume Anesthetic (ccs): 4 Suture: Ethlion Suture Size: 4-0 Number of Sutures: 5 Progress Superficial lacerations on second and third digit did not need repaired with sutures. Triple antibiotic ointment and bandages placed. Laceration repair of fourth digit. Digital block performed with 1% lidocaine. Wound irrigated with normal saline. Laceration repaired with five 4-0 Ethilon sutures. Some oozing of blood from the wound, patient takes Eliquis. Pressure dressing applied with gauze and Coban. (FREMIN TAPIA APRN) Progress/Results/Core Measures Results/Orders Vital Signs/I&O 08/19/23 08/19/23 13:01 13:47 Temp 36.8 36.8 Pulse 67 68 Resp 19 17 B/P (MAP) 142/83 (102) 140/82 Pulse Ox 98 O2 Delivery Room Air Room Air (SHIELA KAHN MD) Progress Progress Note : Progress Note Patient seen and evaluated, resting comfortably in bed, no acute distress. Laceration repaired, see procedure note. Tetanus updated. Patient is stable for discharge. Discharge instructions and return precautions provided. (FERMIN TAPIA APRN) Departure Impression Primary Impression: Laceration of finger of left hand Qualified Codes: S61.215A - Laceration without foreign body of left ring finger without damage to nail, initial encounter Disposition: HOME, SELF-CARE Condition: Stable Departure-Patient Inst. Decision time for Depature: 13:42 (FERMIN TAPIA APRN) Referrals: FOREIGN MARS MD (PCP/Family) Primary Care Physician Patient Instructions: Laceration Repair With Stitches (DC) Add. Discharge Instructions: Keep the dressing in place until tomorrow. After that you may remove the marcelel ssing. After you remove the dressing, the wound clean and dry. You may wash your hands, let water and soap run over the wound, do not scrub, do not soak the wound. Return in 7 to 10 days to have the sutures removed. Return for signs of infection including redness, swelling, discolored odorous drainage, or any other new, concerning, or worsening symptoms. ATTENDING PHYSICIAN NOTE: I was physically present as attending physician in the emergency department during the care of this patient, but I was not directly involved in the decision making or delivery of care for this patient. (SHIELA KAHN MD) FERMIN TAPIA APRN Aug 19, 2023 13:04 SHIELA KAHN MD Aug 20, 2023 13:50
[2023-08-19] MEDS ORDERED: LIDOCAINE 1% INJ 20 ML VIAL INJ ONE (13:15)
[2023-08-19] MEDS ORDERED: Tetanus/Diphtheria/Pertussis (Acell) ADULT Vaccine 0.5 ML IM ONE (13:15)
[2023-08-19 13:47] VITALS: BP 140/82
== END 2023-08-19 13:47 | disposition home or self-care (01) ==
LOC: EDUNIT# 12:56 → ER 12:58
DX: S61.215A Laceration without foreign body of left ring finger without damage to nail, initial encounter (principal); W26.8XXA Contact with other sharp object(s), not elsewhere classified, initial encounter
CPT/HCPCS: 12041; 90715

== ENCOUNTER 2023-08-28 11:08 | Emergency (ER) | payer MEDICARE ==
[~2023-08-28] VITALS: Ht 165 cm; Wt 71.0 kg
[2023-08-28 11:10] VITALS: BP 152/87
== END 2023-08-28 11:22 | disposition home or self-care (01) ==
LOC: EDUNIT# 11:08 → ER 11:10
DX: Z48.02 Encounter for removal of sutures (principal)